=== PATIENT | female | born 1940 | race Caucasian/White ===

== ENCOUNTER 2021-03-30 08:27 | Outpatient (REF) | payer MEDICARE, SELFPAY ==
--- NOTE | ~2021-03-30 | XR_ITS ---
EXAMINATION: XR WRIST, LEFT CLINICAL INFORMATION: Pain left wrist COMPARISON: None TECHNIQUE: 4 views of the left wrist. FINDINGS: There is a small lucency seen traversing the radial styloid process suspicious for fracture. No additional bony abnormality seen. The intercarpal, radioulnar- carpal and CMCP articulation is maintained normal. No abnormal joint effusion seen. Mild soft tissue swelling is noted adjacent to the radial styloid fracture. XR/XR wrist LT min 3V IMPRESSION: Nondisplaced fracture radial styloid process with mild soft tissue swelling.
== END 2021-03-30 08:28 | disposition home or self-care (01) ==
LOC: HO.HOSX 08:27
PROVIDERS: Visit Provider Orthopaedic Surgery
DX: S52.502A Unspecified fracture of the lower end of left radius, initial encounter for closed fracture (principal); M72.0 Palmar fascial fibromatosis [Dupuytren]; X58.XXXA Exposure to other specified factors, initial encounter; Y93.9 Activity, unspecified; Y92.9 Unspecified place or not applicable; Y99.9 Unspecified external cause status
CPT/HCPCS: 73110; 99202

== ENCOUNTER 2021-05-04 08:25 | Outpatient (REF) | payer MEDICARE, SELFPAY ==
--- NOTE | ~2021-05-04 | XR_ITS ---
EXAMINATION: XR WRIST, LEFT CLINICAL INFORMATION: Pain COMPARISON: Prior study 03/30/2021 TECHNIQUE: PA, lateral, and oblique views of the left wrist. FINDINGS: Redemonstration of unhealed intra-articular transverse fracture through the radial styloid. There is underlying degenerative osteoarthritis. There are no new fractures. XR/XR wrist LT min 3V IMPRESSION: Stable unhealed intra-articular radial styloid fracture. Underlying degenerative osteoarthritis.
== END 2021-05-04 08:26 | disposition home or self-care (01) ==
LOC: HO.HOSX 08:25
PROVIDERS: Visit Provider Orthopaedic Surgery
DX: S52.502D Unspecified fracture of the lower end of left radius, subsequent encounter for closed fracture with routine healing (principal); M72.0 Palmar fascial fibromatosis [Dupuytren]
CPT/HCPCS: 73110; 99212

== ENCOUNTER 2021-10-31 14:09 | Outpatient (REF) | payer MEDICARE, SELFPAY ==
[2021-10-31 14:26] VITALS: BP 147/74; PULSE 65; RESP 16; TEMP 36.2; O2SAT 97; BMI 28.3
== END 2021-10-31 14:10 | disposition home or self-care (01) ==
LOC: HO.MS 14:09
PROVIDERS: PCP Internal Medicine; Visit Provider Ophthalmology
PROC: (CPT 66821; principal; 2021-10-31 15:40)
DX: H26.491 Other secondary cataract, right eye (principal); Z83.511 Family history of glaucoma; H40.013 Open angle with borderline findings, low risk, bilateral; Z96.1 Presence of intraocular lens; Z79.899 Other long term (current) drug therapy; Z88.8 Allergy status to other drugs, medicaments and biological substances
CPT/HCPCS: 66821

== ENCOUNTER 2025-05-05 08:47 | Outpatient (AMB) | payer MEDICARE, SELFPAY ==
--- NOTE | 2025-05-05 08:57 | A.OFFPC_ITS ---
Vital Signs 05/05/25 09:00 Height 4 ft 9.87 in Weight 141 lb 6 oz BMI 29.7 BP 132/60 Blood Pressure Location Rt brachial Position Sitting Pulse 69 Pulse Source Pulse Oximeter Temp 97.1 F Temp Source Temporal Artery Scan Pulse Oximetry (%) 98 Oxygen Delivery Method Room Air Intake Visit Reasons: Establish Care Intake Note: Patient is a new patient here to [facility] care for Arthritis, Osteoarthritis. Transferring care from Darrell Mcclain([facility]). Medical records have been requested and have not received. Edi Specialist Required: No Wrinkle Chaser: Not Required per policy Accompanied by: Self / Same As Patient Allergies meperidine (Demerol) Allergy (Unknown, Verified 05/05/25 09:00) hives From DEMEROL Allergy (Severe, Uncoded 05/05/25 09:00) SKIN FEELS LIKE SOMETHING CRAWLING ALL OVER Medication List - Last Reconciled 05/05/25 by Nusrat Alvarenga MD alendronate 70 mg PO QWEEK cholecalciferol (vitamin D3) 25 mcg PO DAILY docusate sodium (Stool Softener) 250 mg PO DAILY estradiol 0.01%(0.1mg/gram) (Estrace) 1 g vaginal 2XW flaxseed oil 2,000 mg PO DAILY multivitamin (Multiple Vitamins tablet) 1 tab PO DAILY Tobacco use date assessed: 05/05/25 Fall risk assessment: No Falls in past year Last assessed Fall Risk: 05/05/25 Dental Screening Dental Screen Date: 05/05/25 Did you have a dental visit in the last 12 months?: No Did you have a dental problem in the last 6 months where you did not have access to dental care?: No Was dental information given to patient?: No (dentures) HPI HPI Comments History of Present Illness Details The patient is an 84-year-old female presenting to [facility]. HEr main issue is knee pain and balance problems. The patient reports that her leg pain began last year, initially affecting her knees, which resolved but later progressed to balance issues and inward turning of the leg. In January, she was diagnosed with Lyme disease after blood tests and was treated with antibiotics for four weeks without improvement. She was advised to visit an arthritis clinic but has been unable to secure an appointment. The patient describes experiencing shocks in her thighs and knees, particularly in the morning, which affects her ability to walk normally. She has been using a cane for support due to off-balance walking and reports that her walking steadiness has been low since September. She has a history of Dupuytren's contracture in her hands for over ten years, which she manages without surgical intervention. The patient denies any significant pain in her hands and reports normal aches and pains associated with aging. The patient has been taking ibuprofen for pain management, which provides some relief, and she engages in home-based physical therapy exercises. She has stopped taking alendronate due to concerns about potential side effects and is awaiting further evaluation. Her preventative care includes pneumococcal vaccination, and she has received all COVID-19 vaccinations. She plans to receive the flu vaccine at [facility] and is considering the shingles vaccine. 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 1. Little interest or pleasure in doing things: not at all 2. Feeling down, depressed, or hopeless: not at all 3. Trouble falling or staying asleep, or sleeping too much: not at all 4. Feeling tired or having little energy: not at all 5. Poor appetite or overeating: not at all 6. Feeling bad about yourself - or that you are a failure or have let yourself or your family down: not at all 7. Trouble concentrating on things, such as reading the newspaper or watching television: not at all 8. Moving or speaking so slowly that other people could have noticed. Or the opposite - being so fidgety or restless that you have been moving around a lot more than usual: not at all 9. Thoughts that you would be better off or of hurting yourself in some way: not at all Total score: 0 Depression Screening Interpretation: Negative Depression Screening Done: Yes Source: Developed by Drs. Alfredo Antunez, Barbara Tomas, Be Mccord and colleagues, with an educational sarath from [employer]. Thrive Questionnaire Date Thrive assessed: 05/04/25 I am a: Patient What is your living situation today?: I have a steady place to live Within the past 12 months, did the food you bought not last and you didn't have the money to get more?: Never true Within the past 12 months, did you worry whether your food would run out before you got money to buy more?: Never true Do you have trouble paying for medicines?: No Do you have trouble getting transportation to medical appointments?: No Do you have trouble paying your heating and electricity bill?: No Do you have trouble taking care of your child, family member or friend?: No Do you have trouble with day-to-day activities such as bathing, preparing meals, shopping, managing finances, etc.?: No Are you currently unemployed and looking for a job?: No Are you interested in more education?: No Please select the resources that you would like help with: None Currently or been in a relationship where the following occur: No concerns reported THRIVE Score: 0 AUDIT C Alcohol Use Questionnaire (AUDIT-C) 1. How often do you have a drink containing alcohol?: Never 3. How often do you have six or more drinks on one occasion?: Never Total Score: 0 SOHAN-7 AMB Questionnaire SOHAN-7 Date SOHAN - 7 assessed: 05/05/25 Feeling nervous, anxious, or on edge: 0 = Not at all Not being able to stop or control worryin = Not at all Worrying too much about different things: 0 = Not at all Trouble relaxin = Not at all Being so restless that it is hard to sit still: 0 = Not at all Becoming easily annoyed or irritable: 0 = Not at all Feeling afraid as if something awful might happen: 0 = Not at all Total SOHAN-7 score (0-4 normal; 5-9 mild; 10-14 moderate; 15-21 severe): 0 Source: Developed by Drs. Alfredo Antunez, Barbara Tomas, Be Mccord and colleagues, with an educational sarath from [employer]. Review of Systems Const Details: Positives besides what was mentioned in HPI are in BOLD Constitutional: No Weight Change, No Fever, No Chills, No Night Sweats, No Fatigue, No Malaise ENT/Mouth: No Hearing Changes, No Ear Pain, No Nasal Congestion, No Sinus Pain, No Hoarseness, No sore throat, No Rhinorrhea, No Swallowing Difficulty Eyes: No Eye Pain, No Swelling, No Redness, No Foreign Body, No Discharge, No Vision Changes Cardiovascular: No Chest Pain, No SOB, No PND, No Dyspnea on Exertion, No Orthopnea, No Claudication, No Edema, No Palpitations Respiratory: No Cough, No Sputum, No Wheezing, No Smoke Exposure, No Dyspnea Gastrointestinal: No Nausea, No Vomiting, No Diarrhea, No Constipation, No Pain, No Heartburn, No Anorexia, No Dysphagia, No Hematochezia, No Melena, No Flatulence, No Jaundice Genitourinary: No Dysmenorrhea, No DUB, No Dyspareunia, No Dysuria, No Urinary Frequency, No Hematuria, No Urinary Incontinence, No Urgency, No Flank Pain, No Urinary Flow Changes, No Hesitancy Musculoskeletal: No Arthralgias, No Myalgias, No Joint Swelling, No Joint Stiffness, No Back Pain, No Neck Pain, No Injury History Skin: No Skin Lesions, No Pruritis, No Hair Changes, No Breast/Skin Changes, No Nipple Discharge Neuro: No Weakness, No Numbness, No Paresthesias, No Loss of Consciousness, No Syncope, No Dizziness, No Headache, No Coordination Changes, No Recent Falls Psych: No Anxiety/Panic, No Depression, No Insomnia, No Personality Changes, No Delusions, No Rumination, No SI/HI/AH/VH, No Social Issues, No Memory Changes, No Violence/Abuse Hx., No Eating Concerns Heme/Lymph: No Bruising, No Bleeding, No Transfusions History, No Lymphadenopathy Endocrine: No Polyuria, No Polydipsia, No Temperature Intolerance Physical exam (Primary Care) Vital Signs: Last Vital Signs Temp 97.1 F 05/05/25 09:00 Oxygen Delivery Method Room Air 05/05/25 09:00 BMI result Body Mass Index 29.7 Tobacco/Smoking Status: Tobacco use Status Tobacco use date assessed 05/05/25 05/05/25 09:06 Patient Tobacco Use Status Never used Tobacco 05/05/25 09:06 e-Cigarette/Vaping Use Never Used 05/05/25 09:06 PHQ-9: PHQ-9 Score PHQ-9: Total score 0 05/05/25 09:06 Depression Screening Interpretation: Negative Thrive Assessment: Date of Thrive Assessment Date Thrive assessed 05/04/25 05/05/25 08:57 Currently or been in a relationship where the following occur: No concerns reported Const Other: Pertinent findings are in BOLD GENERAL APPEARANCE NAD, activity normal for age, well developed/ well nourished, no cyanosis, pallor, or diaphoresis. EYES lids/conjunctiva normal. EARS/NOSE/THROAT Mucous membranes moist, nares normal, lips/teeth normal uvula midline without oral pharyngeal erythema, exudate or swelling TMs normal bilaterally. No lymphangitis/lymphedema. HEAD/NECK normocephalic atraumatic, no facial trauma, neck is supple. RESPIRATORY respiratory effort normal, speaks in full sentences, no tripod position, no accessory muscle use. Lungs clear to auscultation without rhonchi, wheezes, rales CARDIAC Regular rate and rhythm, no edema. ABDOMINAL Soft, ND/NT. No evidence of fluid wave. No pulsatile masses on exam, rebound tenderness, Johnson sign or pain over Mcburney's point. MUSCLES/EXTREMITIES Mild imbalance with walking. Mild tenderness to outer knees. Leg raise negative. SKIN Warm, pink and dry. No rashes, dermatoses, petechiae or lesions. NEUROLOGICAL Speech is clear and appropriate. Normal level of consciousness. Gait and coordination are normal. 5/5 strength in all extremities. PSYCH Normal mood and affect. Judgement/competence is appropriate Coding Level of Care Code New Pt Level 4 (92535) Diagnoses Primary osteoarthritis of both knees M17.0 Osteoarthritis location: knee Osteoarthritis type: primary Laterality: bilateral Age-related osteoporosis without current pathological fracture M81.0 Osteoporosis type: age-related Presence of current pathological fracture: without current pathological fracture Herpes zoster without complication B02.9 Herpes zoster complications: without complications Health maintenance examination Z00.00 Assessment & Plan Assessment & Plan (1) Osteoarthritis: Code(s): M19.90 - Unspecified osteoarthritis, unspecified site Category: Medical Qualifiers: Osteoarthritis location: knee Osteoarthritis type: primary Laterality: bilateral Qualified Code(s): M17.0 - Bilateral primary osteoarthritis of knee Plan: Most likely her knee pain is due to Osteoarthritis. Bilateral knee X-ray. PT referral. OTC tylenol and Ibuprofen. RF and CCP to rule out RA as she describes severe morning stiffness in her knees. (2) Osteoporosis: Code(s): M81.0 - Age-related osteoporosis without current pathological fracture Category: Medical Qualifiers: Osteoporosis type: age-related Presence of current pathological fracture: without current pathological fracture Qualified Code(s): M81.0 - Age- related osteoporosis without current pathological fracture Plan: Was previsouly on Alendronate but she self discontinued it due to concerns related to muscle wasting. Dental referral for clearance prior to re-initiation of Alendronate. Repeat Dexa ordered to evaluate for need of treatment. (3) Herpes zoster: Code(s): B02.9 - Zoster without complications Category: Medical Qualifiers: Herpes zoster complications: without complications Qualified Code(s): B02.9 - Zoster without complications Plan: Advised on getting Shingles vaccine. No acute flares at this time. She had three episodes of shingles. (4) Health maintenance examination: Code(s): Z00.00 - Encounter for general adult medical examination without abnormal findings Category: Medical Plan: Dexa. CBC, CMP, Lipid panel, A1C, TSH w T4. Advised on getting Shingles vaccine. Patient reports completing COVID and pneumococcal vaccines in the past. She will get the flu vaccine from retail pharmacy. Plan We also explored the possibility of osteoarthritis contributing to her symptoms and the potential for physical therapy and pain management strategies, including the use of Tylenol and ibuprofen. The need for further diagnostic imaging, such as knee x-rays, was highlighted to better understand the extent of joint involvement. Preventative care measures, including vaccinations, were reviewed, and the patient was encouraged to consider the shingles vaccine. Orders: Orders Lipid Panel Today Z00.00 - Encounter for general adult medical examination without abnormal findings TSH reflex Free T4 Today Z00.00 - Encounter for general adult medical examination without abnormal findings KALPESH Reflex Titer and Pattern Today Z00.00 - Encounter for general adult medical examination without abnormal findings XR Knee Richard 3V Today M19.90 - Unspecified osteoarthritis, unspecified site XR DEXA axial skeleton Today M81.0 - Age-related osteoporosis without current pathological fracture Complete Blood Count no Diff Today Z00.00 - Encounter for general adult medical examination without abnormal findings Complete Blood Count Auto Diff Today Z00.00 - Encounter for general adult medical examination without abnormal findings Hemoglobin A1c Today Z00.00 - Encounter for general adult medical examination without abnormal findings Cyclic Citrullinated Peptide Today M19.90 - Unspecified osteoarthritis, unspecified site Rheumatoid Factor Today M19.90 - Unspecified osteoarthritis, unspecified site PT Evaluation and Treatment Today M19.90 - Unspecified osteoarthritis, unspecified site Referrals Dentistry Referral M81.0 - Age-related osteoporosis without current pathological fracture
[2025-05-05 09:00] VITALS: BP 132/60; PULSE 69; TEMP 36.2; O2SAT 98; BMI 29.7
--- OUTSIDE RECORDS SUMMARY | 2025-05-05 10:46 | XMS_ITS | Patient Health Record ---
Author Organization [facility] Address [address] [place] [address] Care Team Providers Care Animal Breeder Name Role Phone Darrell Mcclain MD Primary Care Provider Sukhjinder Rock Jr Unavailable Allergies Allergen (clinical drug ingredient) Drug/Non Drug Allergy documented on EMR Reaction Allergy Type Onset Date Status meperidine Demerol Unknown Drug Allergy Active Reason For Referral No Information Medications Medication SIG (Take, Route, Frequency, Duration) Notes Start Date End Date Status Alendronate Sodium 70 MG Oral for 84 Active Estradiol Active Calcium Magnesium Ac tive Multivitamin Adult - 1 tablet Orally Onc e a day for 30 day(s) Active Flaxseed Oil - as directed Act lindsay Vitamin D3 25 MCG (1000 UT) 1 tablet Ora lly Once a day for 30 day(s) Active Stool Softener 250 MG 1 capsule as neede d Orally Once a day Active Colostrum Active Social History Tobacco Use: Social History Observation Description Date Details (start date - stop date) Former Smoker NA - NA Tobacco Use/Smoking Question Answer Notes Patient is a former smoker How long has it been since you last smoked? > 10 years Alcohol Screen Question Answer Notes Did you have a drink contain ing alcohol in the past year? Yes How often did you have a dri nk containing alcohol in the past year? Never (0 point) How many drinks did you have on a typical day when you were drinking in the past year? 1 or 2 drinks (0 point) How often did you have 6 or more drinks on one occasion in the past year? Never (0 point) Points 0 Interpretation Negative Plan Of Treatment No Information Insurance Providers Payer Name Payer Address Payer Phone Subscriber Number Group Number Insured Name Patient Relationship to Insured Coverage Start Date Coverage End Date [facility] CLAIMS [address] [place] [id number] ANDRE FOSS Self - patient is the insured [facility] [address] [place] [address] [phone] [id number] ANDRE FOSS Self - patient is the insured Medical (General) History Medical History History ICD Code Allergic rhinitis Osteoporosis Uterine prolapse Surgical History Surgery Date(Month/Year) D&C
--- OUTSIDE RECORDS SUMMARY | 2025-05-05 10:46 | XMS_ITS | Clinical Summary ---
Author Organization [employer] Address [address] [place] [address] Care Team Providers Care Bag Patcher Name Role Phone Unavailable Primary Care Provider Unavailabl e Immunizations Immunization Administration Dates Next Due Influenza High-dose Quadriva lent Preservative Free 06/05/2022 Influenza Quadrivalent Adjuvanted 06/09/2023,12/2020 Influenza Whole 05/12/2020, 9,04/16/2012,05/11,05/17/2009,06/17/2008 Influenza, IIV3, injectable 06/09/2023,1 ,05/24/2021,06/10,06/04/2017,06/02/2016,05/21/2015 ,05/06/2014,05/12/2013,05/09/2013,03/21,05/10/2011,04/28/2010, 0 Influenza, seasonal, injecta ble, preservative free 05/12/2024 Pfizer Covid-19 Vaccine 12+ 05/12/2024, 3 Pneumococcal Conjugate PCV 13 05/21/2015 Pneumococcal Polysaccharide PPSV23 06/16/2020, RSV Adjuvant 07/17/2023 Td (adult), unspecified 02/03/2000 Tdap 06/16/2020 Tetanus Toxoid, Unspecified 03/07/2010 Social History Tobacco Use Types Packs/Day Years Used Date Smoking Tobacco: Never Assessed Comments Unknown Sex and Gender Information Value Date Recorded Sex Assigned at Unknown 06/21/2023 3:50 PM EDT Legal Sex Female 12:05 PM EDT Gender Identity Choose not to disclose 3:50 PM EDT Sexual Orientation Don't know 06/21/2023 3: 50 PM EDT Plan of Treatment Health Maintenance Due Date Last Done Comments Depression Screening 1942 Lipid Panel 1942 SDOH Screening 1942 Alcohol/Substance Use Screening 1954 Tobacco Screening 1954 Zoster Vaccines (1 of 2) 1992 COVID-19 Vaccine ( season) 2025 05/12/2024, 06/21/2023, 05/07/2022, Additional history exists Influenza Vaccine (#1) 2025 , 06/09/2023, 06/09/2023, Additional history exists DTaP/Tdap/Td Vaccines (2 - Td or Tdap) 06/16/2030 06/16/2020, 03/07/2010, 02/03/2000 Pneumococcal Vaccine: 50+ Years Completed 06/16/2020, 05/21/2015, 01/23/2007 RSV Patients and Patients Aged 60 years or older Completed 07/17/2023 HIB Vaccines Aged Out No longer eligi ble based on patient's age to complete this topic HPV Vaccines Aged Out No longer eligi ble based on patient's age to complete this topic Hepatitis A Vaccines Aged Out No long er eligible based on patient's age to complete this topic Hepatitis B Vaccines Aged Out No long er eligible based on patient's age to complete this topic IPV Vaccines Aged Out No longer eligi ble based on patient's age to complete this topic Meningococcal B Vaccine Aged Out No l onger eligible based on patient's age to complete this topic Meningococcal Vaccine Aged Out No anne marie linda eligible based on patient's age to complete this topic RSV under 20 months Aged Out No longe r eligible based on patient's age to complete this topic Rotavirus Vaccines Aged Out No longer eligible based on patient's age to complete this topic Insurance [facility] OPTIONS (HMO D-SNP)
== END 2025-05-05 09:44 | disposition home or self-care (01) ==
LOC: HO.HMCH 08:48
PROVIDERS: PCP Internal Medicine; Visit Provider Internal Medicine
DX: M17.0 Bilateral primary osteoarthritis of knee (principal); M81.0 Age-related osteoporosis without current pathological fracture; B02.9 Zoster without complications; Z00.00 Encounter for general adult medical examination without abnormal findings

== ENCOUNTER 2025-05-11 09:49 | Outpatient (REF) | payer MEDICARE, SELFPAY ==
--- NOTE | ~2025-05-11 | XR_ITS ---
Exam: X-ray, bilateral knees.XR KNEE 3 VIEWS BILATERAL TECHNIQUE: Three views lower extremity joint, bilateral knees INDICATION: Arthritis COMPARISON: None available. FINDINGS: RIGHT KNEE: There is mild narrowing of the medial joint space. Lateral joint spaces preserved. There is a small amount of fluid in the suprapatellar pouch. There are tricompartmental marginal osteophytes. There is mild medial subluxation of distal femur at the joint line. LEFT KNEE: There is mild narrowing of the medial joint space and questionable narrowing of the lateral. There is no free fluid is visible in suprapatellar pouch. There are tricompartmental marginal osteophytes and peaked intercondylar tubercles. There is subtle medial subluxation of distal femur at the joint line. XR/XR Knee Richard 3V IMPRESSION: Right knee: Mild to moderate osteoarthritis. There is a small volume of joint fluid. Left knee: Mild to moderate osteoarthritis. There is a small volume of joint fluid. Electronically signed by: Dane Mg MD 05/11/2025 10:31 AM EDT
--- OUTSIDE RECORDS SUMMARY | 2025-05-11 11:59 | XMS_ITS | Patient Health Record ---
Author Organization [facility] Address [address] [place] [address] Care Team Providers Care Bodywork Therapist Name Role Phone Darrell Mcclain MD Primary [...] Insured Coverage Start Date Coverage End Date [facility] CLAIMS [address] [place] [id number] ANDRE FOSS Self - patient is the insured [facility] [address] [place] [address] [phone] [id number] ANDRE FOSS Self - patient is the insured Medical (General) History Medical History History ICD Code Allergic rhinitis Osteoporosis Uterine prolapse Surgical History Surgery Date(Month/Year) D&C
--- OUTSIDE RECORDS SUMMARY | 2025-05-11 11:59 | XMS_ITS | Clinical Summary ---
Author Organization [employer] Address [address] [place] [address] Care Team Providers Care Software Application Tester Name Role Phone Unavailable Primary Care Provider [...] patient's age to complete this topic Insurance [facility] OPTIONS (HMO D-SNP)
[2025-05-11 12:58] LABS: MANUAL DIFF FLAG NO
[2025-05-11 13:13] LABS: Hematocrit 39.4 % (37.0-47.0); Hemoglobin 13.1 g/dl (12.0-16.0); Imm Gran Abs Auto 0.04 X10*3/uL (0.00-0.03); Imm Gran Pct Auto 0.4 % (0.0-0.4); Lymphocytes Absolute Auto 2.3 X10*3/uL (1.2-4.9); Mean Corpuscular HGB Conc 33.2 g/dl (31.0-35.0); Mean Corpuscular Hemoglobin 30.8 pg (27.0-33.0); Mean Corpuscular Volume 92.5 fL (80.0-98.0); NRBC Abs Auto 0.000 X10*3/uL (0.0-0.012); NRBC Pct Auto 0.0 /100WBC (0.0-0.2); Platelet Count 318 X10*3/uL (160-400); Red Blood Count 4.26 X10*6/uL (4.20-5.50); White Blood Count 9.1 X10*3/uL (4.8-10.8)
[2025-05-11 13:24] LABS: Hemoglobin A1C 126.9926 umol/L; Total Hemoglobin (HGBA1C) 3443.4732 umol/L
[2025-05-11 13:47] LABS: Cholesterol 177 mg/dL (<200); HDL Cholesterol 42 mg/dL (>40); Triglycerides 141 mg/dL (<150)
[2025-05-12 15:37] LABS: Anti Nuclear Antibody Screen NEGATIVE (NEGATIVE)
== END 2025-05-11 09:50 | disposition home or self-care (01) ==
LOC: HO.HMGCX 09:49
PROVIDERS: PCP Internal Medicine; Visit Provider Internal Medicine
DX: Z00.00 Encounter for general adult medical examination without abnormal findings (principal); Z13.6 Encounter for screening for cardiovascular disorders; Z13.1 Encounter for screening for diabetes mellitus; M17.0 Bilateral primary osteoarthritis of knee
CPT/HCPCS: 36415; 73562; 80061; 83036; 84443; 85025; 86038; 86200; 86431

== ENCOUNTER → 2025-05-11 09:56 | Outpatient (BNV) | payer MEDICARE, SELFPAY | PROVIDERS: PCP Internal Medicine; Visit Provider Radiology Diagnostic Radiology | DX: M17.0 Bilateral primary osteoarthritis of knee (principal) | CPT/HCPCS: 73562 ==

== ENCOUNTER 2025-05-25 13:47 | Outpatient (AMB) | payer MEDICARE, SELFPAY ==
--- NOTE | 2025-05-25 14:00 | MHC.PC.OV ---
Vital Signs 05/25/25 14:01 Height 4 ft 9.87 in Weight 141 lb BMI 29.6 BP 142/82 H Blood Pressure Location Lt brachial Position Sitting Pulse 64 Pulse Source Pulse Oximeter Temp 97.3 F Temp Source Temporal Artery Scan Pulse Oximetry (%) 98 Oxygen Delivery Method Room Air Intake Visit Reasons: hard time walking Intake Note: Patient is here to follow up on Hard time walking and off balance. Burner Technician Required: No Ui Software Developer: Present Accompanied by: Daughter Allergies meperidine (Demerol) Allergy (Unknown, Verified 05/25/25 14:01) hives From DEMEROL Allergy (Severe, Uncoded 05/25/25 14:01) SKIN FEELS LIKE SOMETHING CRAWLING ALL OVER Tobacco use date assessed: 05/25/25 Fall risk assessment: No Falls in past year Last assessed Fall Risk: 05/25/25 Dental Screening Dental Screen Date: 05/05/25 HPI HPI Comments History of Present Illness Details The patient is an 84-year-old female presenting with severe muscle pain in the thighs and walking instability. The pain is most severe in the morning, making ambulation difficult, and is described as a bruised sensation inside the thighs, accompanied by a dragging feeling when walking. The patient has a history of osteoarthritis, which she believes may contribute to her symptoms, although the thigh pain is distinct from her arthritis pain. She also has a history of Lyme disease, though the timing of contraction is unclear, and she questions its relation to her current symptoms. Walking instability has been present since September 2023, with a noted decline in steadiness, described as jumping soldier gait, and rated as very low. Imaging revealed fluid in both knees, but the knees are not the primary source of pain. The patient is not on regular medications, including alendronate, and uses Tylenol for pain relief. Recent labs showed a slight elevation in immature granulocytes, leading to a hematology referral. 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 Cognitive needs: Yes (cane) Hearing needs: No Vision needs: Yes (Reading glasses) Questionnaire Thrive Questionnaire Date Thrive assessed: 05/04/25 I am a: Patient What is your living situation today?: I have a steady place to live Within the past 12 months, did the food you bought not last and you didn't have the money to get more?: Never true Within the past 12 months, did you worry whether your food would run out before you got money to buy more?: Never true Do you have trouble paying for medicines?: No Do you have trouble getting transportation to medical appointments?: No Do you have trouble paying your heating and electricity bill?: No Do you have trouble taking care of your child, family member or friend?: No Do you have trouble with day-to-day activities such as bathing, preparing meals, shopping, managing finances, etc.?: No Are you currently unemployed and looking for a job?: No Are you interested in more education?: No Please select the resources that you would like help with: None Currently or been in a relationship where the following occur: No concerns reported THRIVE Score: 0 SOHAN-7 AMB Questionnaire SOHAN-7 Date SOHAN - 7 assessed: 05/05/25 Source: Developed by Drs. Alfredo Antunez, Barbara Tomas, Be Mccord and colleagues, with an educational sarath from [employer] Review of Systems Const Details: Positives besides what was mentioned in HPI are in BOLD Constitutional: No Weight Change, No Fever, No Chills, No Night Sweats, No Fatigue, No Malaise ENT/Mouth: No Hearing Changes, No Ear Pain, No Nasal Congestion, No Sinus Pain, No Hoarseness, No sore throat, No Rhinorrhea, No Swallowing Difficulty Eyes: No Eye Pain, No Swelling, No Redness, No Foreign Body, No Discharge, No Vision Changes Cardiovascular: No Chest Pain, No SOB, No PND, No Dyspnea on Exertion, No Orthopnea, No Claudication, No Edema, No Palpitations Respiratory: No Cough, No Sputum, No Wheezing, No Smoke Exposure, No Dyspnea Gastrointestinal: No Nausea, No Vomiting, No Diarrhea, No Constipation, No Pain, No Heartburn, No Anorexia, No Dysphagia, No Hematochezia, No Melena, No Flatulence, No Jaundice Genitourinary: No Dysmenorrhea, No DUB, No Dyspareunia, No Dysuria, No Urinary Frequency, No Hematuria, No Urinary Incontinence, No Urgency, No Flank Pain, No Urinary Flow Changes, No Hesitancy Musculoskeletal: No Arthralgias, No Myalgias, No Joint Swelling, No Joint Stiffness, No Back Pain, No Neck Pain, No Injury History Skin: No Skin Lesions, No Pruritis, No Hair Changes, No Breast/Skin Changes, No Nipple Discharge Neuro: No Weakness, No Numbness, No Paresthesias, No Loss of Consciousness, No Syncope, No Dizziness, No Headache, No Coordination Changes, No Recent Falls Psych: No Anxiety/Panic, No Depression, No Insomnia, No Personality Changes, No Delusions, No Rumination, No SI/HI/AH/VH, No Social Issues, No Memory Changes, No Violence/Abuse Hx., No Eating Concerns Heme/Lymph: No Bruising, No Bleeding, No Transfusions History, No Lymphadenopathy Endocrine: No Polyuria, No Polydipsia, No Temperature Intolerance Physical exam (Primary Care) Vital Signs: Last Vital Signs Temp 97.3 F 05/25/25 14:01 Pulse 64 05/25/25 14:01 BP 142/82 H 05/25/25 14:01 Pulse Ox 98 05/25/25 14:01 Oxygen Delivery Method Room Air 05/25/25 14:01 BMI result Body Mass Index 29.6 Tobacco/Smoking Status: Tobacco use Status Tobacco use date assessed 05/25/25 05/25/25 14:06 Patient Tobacco Use Status Former Tobacco user 05/25/25 14:06 e-Cigarette/Vaping Use Never Used 05/25/25 14:06 Thrive Assessment: Date of Thrive Assessment Date Thrive assessed 05/04/25 05/25/25 14:06 Currently or been in a relationship where the following occur: No concerns reported Const Other: Pertinent findings are in BOLD GENERAL APPEARANCE NAD, activity normal for age, well developed/ well nourished, no cyanosis, pallor, or diaphoresis. EYES lids/conjunctiva normal. EARS/NOSE/THROAT Mucous membranes moist, nares normal, lips/teeth normal uvula midline without oral pharyngeal erythema, exudate or swelling TMs normal bilaterally. No lymphangitis/lymphedema. HEAD/NECK normocephalic atraumatic, no facial trauma, neck is supple. RESPIRATORY respiratory effort normal, speaks in full sentences, no tripod position, no accessory muscle use. Lungs clear to auscultation without rhonchi, wheezes, rales CARDIAC Regular rate and rhythm, no edema. ABDOMINAL Soft, ND/NT. No evidence of fluid wave. No pulsatile masses on exam, rebound tenderness, Johnson sign or pain over Mcburney's point. MUSCLES/EXTREMITIES No abnormal range of motion, no swelling. Patient limping when walking. Weakness in bilateral lower extremities. SKIN Warm, pink and dry. No rashes, dermatoses, petechiae or lesions. NEUROLOGICAL Speech is clear and appropriate. Normal level of consciousness. Gait and coordination are normal. 5/5 strength in all extremities. PSYCH Normal mood and affect. Judgement/competence is appropriate Coding Level of Care Code Est Pt Level 3 (44974) Diagnoses Muscle weakness M62.81 Time Spent (min) 20 Assessment & Plan Assessment & Plan (1) Muscle weakness: Code(s): M62.81 - Muscle weakness (generalized) Category: Medical Plan: Rheumatology referral to assist with management of thighs weakness. PT referral. ESR, CRP, anti NADIA, and anti scleroderma to rule out autoimmune diseases. Plan During the visit, I discussed the patient's symptoms of muscle pain and walking instability, emphasizing the need for further evaluation by rheumatology and dermatology. We also reviewed the lab findings of elevated immature granulocytes and the plan to consult hematology for further assessment. Physical therapy was recommended to improve muscle strength and gait stability. Orders: Orders Erythrocyte Sedimentation Rate Today M62.81 - Muscle weakness (generalized) CRP High Sensitivity Today M62.81 - Muscle weakness (generalized) NADIA 1 Antibody Today M62.81 - Muscle weakness (generalized) Scleroderma 70 Antibody Today M62.81 - Muscle weakness (generalized) Referrals Rheumatology Referral M79.659 - Pain in unspecified thigh
[2025-05-25 14:01] VITALS: BP 142/82; PULSE 64; TEMP 36.3; O2SAT 98; BMI 29.6
--- OUTSIDE RECORDS SUMMARY | 2025-05-25 16:13 | XMS_ITS | Patient Health Record ---
Author Organization [facility] Address [address] [place] [address] Care Team Providers Care Digital Designer Name Role Phone Darrell Mcclain MD Primary [...] Insured Coverage Start Date Coverage End Date [facility] CLAIMS [address] [place] [id number] ANDRE FOSS Self - patient is the insured [facility] [address] [place] [address] [phone] [id number] ANDRE FOSS Self - patient is the insured Medical (General) History Medical History History ICD Code Allergic rhinitis Osteoporosis Uterine prolapse Surgical History Surgery Date(Month/Year) D&C
--- OUTSIDE RECORDS SUMMARY | 2025-05-25 16:13 | XMS_ITS | Clinical Summary ---
Author Organization [employer] Address [address] [facility] [address] [place] [address] Care Team Providers Care Buckle Sewer Machine Name Role Phone Unavailable Primary Care Provider [...] patient's age to complete this topic Insurance [facility] OPTIONS (HMO D-SNP)
== END 2025-05-25 14:22 | disposition home or self-care (01) ==
LOC: HO.HMCH 13:48
PROVIDERS: PCP Internal Medicine; Visit Provider Internal Medicine
DX: M62.81 Muscle weakness (generalized) (principal)

== ENCOUNTER → 2025-05-25 13:47 | Outpatient (BNVA) | payer MEDICARE, SELFPAY | PROVIDERS: PCP Internal Medicine; Visit Provider Internal Medicine | DX: M62.81 Muscle weakness (generalized) (principal); R26.89 Other abnormalities of gait and mobility | CPT/HCPCS: 99212 ==

== ENCOUNTER 2025-05-29 14:36 | Outpatient (REF) | payer MEDICARE, SELFPAY ==
[2025-06-05 19:47] LABS: Cytosolic 5'nuc 1A Ab IgG <5 Units; HMGCR Ab IgG <2 CU (<20); MDA5 Ab <11 SI (<11); NXP-2 (MJ) Ab <11 SI (<11); SRP Ab <11 SI (<11)
[2025-06-11 07:55] LABS: CK-BB NONE DETECTED; CK-MB 0; CK-MM 100
[2025-06-11 07:57] LABS: Creatine Kinase,Total,Serum 51
== END 2025-05-29 14:37 | disposition home or self-care (01) ==
LOC: HO.HMGCLDS 14:36
PROVIDERS: PCP Internal Medicine; Visit Provider Internal Medicine
DX: M62.81 Muscle weakness (generalized) (principal)
CPT/HCPCS: 36415; 82085; 82552; 83516; 83520; 84182; 85652; 86141; 86235

== ENCOUNTER 2025-06-15 16:03 | Outpatient (REF) | payer MEDICARE, SELFPAY ==
[2025-06-15 17:23] LABS: Hematocrit 41.1 % (37.0-47.0); Hemoglobin 13.5 g/dl (12.0-16.0); Mean Corpuscular HGB Conc 32.8 g/dl (31.0-35.0); Mean Corpuscular Hemoglobin 30.5 pg (27.0-33.0); Mean Corpuscular Volume 93.0 fL (80.0-98.0); NRBC Abs Auto 0.000 X10*3/uL (0.0-0.012); NRBC Pct Auto 0.0 /100WBC (0.0-0.2); Platelet Count 315 X10*3/uL (160-400); Red Blood Count 4.42 X10*6/uL (4.20-5.50); White Blood Count 9.3 X10*3/uL (4.8-10.8)
--- OUTSIDE RECORDS SUMMARY | 2025-06-15 18:59 | XMS_ITS | Patient Health Record ---
Author Organization [facility] Address [address] [place] [address] Care Team Providers Care Printing Machinist Name Role Phone Darrell Mcclain MD Primary Care Provider Lisa Obando Jr Sukhjinder Unavailable Allergies Allergen (clinical drug ingredient) Drug/Non Drug Allergy documented on EMR Reaction Allergy Type Onset Date Status meperidine Demerol Unknown Drug Allergy Active Reason For Referral No Information Medications Medication SIG (Take, Route, Frequency, Duration) Notes Start Date End Date Status Alendronate Sodium 70 MG Oral; Duration: 84 Active Estradiol Active Calcium Magnesium Ac tive Multivitamin Adult - 1 tablet Orally Onc e a day; Duration: 30 day(s) Active Flaxseed Oil - as directed Act lindsay Vitamin D3 25 MCG (1000 UT) 1 tablet Ora lly Once a day; Duration: 30 day(s) Active Stool Softener 250 MG [...] Insured Coverage Start Date Coverage End Date [facility] CLAIMS [address] [place] [address] [phone] [id number] ANDRE FOSS Self - patient is the insured [facility] [address] [place] [address] [phone] [id number] ANDRE FOSS Self - patient is the insured Medical (General) History Medical History History ICD Code Allergic rhinitis Osteoporosis Uterine prolapse Surgical History Surgery Date(Month/Year) D&C
--- OUTSIDE RECORDS SUMMARY | 2025-06-15 18:59 | XMS_ITS | Clinical Summary ---
Author Organization [employer] Address [address] [facility] 7t [place] [address] Care Team Providers Care Panel Raiser Operator Name Role Phone Unavailable Primary Care Provider [...] patient's age to complete this topic Insurance [facility] LONGTERM OPTIONS (HMO D-SNP)
== END 2025-06-15 16:04 | disposition home or self-care (01) ==
LOC: HO.LAB 16:03
PROVIDERS: PCP Internal Medicine; Visit Provider Internal Medicine
DX: Z00.00 Encounter for general adult medical examination without abnormal findings (principal); M62.81 Muscle weakness (generalized)
CPT/HCPCS: 36415; 82085; 85027

== ENCOUNTER 2025-06-17 15:00 | Outpatient (RCR) | payer MEDICARE, SELFPAY ==
--- NOTE | 2025-06-15 16:01 | MHC.PT.EP ---
[facility] Office [place] Office [place] Office [address] Divya Blackmon [address] [phone] F: [phone] F: [phone] F: [phone] F: [phone] Physical Therapy Plan of Care Date of Evaluation: 06/15/25 Date of Surgery: N/A Diagnosis: osteoarthritis; bilateral knee osteoarthritis (RL) Assessment: pt is an 84 y/o female presenting to physical therapy w/ referring diagnosis of osteoarthritis bilateral knees. Impairments include pain, decreased range of motion, decreased strength, impaired functional mobility, impaired postural awareness, and altered ambulation mechanics. pt is a fair candidate for skilled PT due to age, potential remediation of impairments, typical disease/condition progression and prognosis, comorbidities, and motivation. pt would benefit from skilled PT intervention to provide a tailored strengthening and stretching exercise program, functional training, gait training, postural re-training, neuromuscular re-education, modalities as needed for pain, equipment safety demonstration. Frequency and Duration: The patient will be seen 2x/wk for 5 wks Short Term Goals: pt will be I w/ HEP to promote self-management of condition. pt will improve L hip flexion and knee extension strength by 1 MMT grade to promote ease in sit<>stand transfer. Group Home Goals: pt will report a statistically significant improvement in self-reported outcome measure, LEFI, to promote return to PLOF. pt will ascend/descend 4 stairs using railing and step-to pattern to promote ease in stairs. Treatment Plan: Modalities to reduce pain, spasms and effusion. Manual therapy to restore motion and function. Therapeutic exercise to improve strength and flexibility. Neuromuscular re-education for posture and balance. Therapeutic activities to return to functional activities of daily living. Electronically signed by: Mary Keyes PT, DPT Please sign and return to therapist. Thank you for your referral.
--- NOTE | 2025-07-01 15:41 | MHC.PT.DC ---
[facility] [place] Office [place] Office [place] Office [address] Divya Blackmon [address] [facility] [phone] F: [phone] F: [phone] F: [phone] F: [phone] Physical Therapy Discharge Report Diagnosis: osteoarthritis; bilateral knee osteoarthritis (RL) Date of Surgery: N/A Date of Evaluation: 06/15/25 Date of Discharge: 07/01/25 Treatments to Date: 2 Cancellations to Date: 8 No Shows to Date: 0 Discharge Status: Patient Elected to Stop Recommend MD Follow-up Discharge Summary: The patient called to discharge herself from physical therapy as she is pursuing an MRI. Electronically signed by: Mary Keyes PT, DPT Please sign and return to therapist. Thank you for your referral.
== END 2025-07-01 15:41 | disposition home or self-care (01) ==
LOC: HO.PT 15:00
PROVIDERS: PCP Internal Medicine; Visit Provider Internal Medicine
DX: M17.0 Bilateral primary osteoarthritis of knee (principal)
CPT/HCPCS: 97110; 97162

== ENCOUNTER 2025-06-24 07:53 | Outpatient (AMB) | payer MEDICARE, SELFPAY ==
--- OUTSIDE RECORDS SUMMARY | 2025-06-24 07:56 | XMS_ITS | Patient Health Record ---
Author Organization [facility] Address [address] [place] [address] Care Team Providers Care National Park Ranger Name Role Phone Darrell Mcclain MD Primary Care Provider Lisa Obando Jr Sukhjinder Unavailable [phone] Allergies Allergen (clinical drug ingredient) Drug/Non Drug [...] Insured Coverage Start Date Coverage End Date [facility] CLAIMS [address] [place] [phone] [id number] ANDRE FOSS Self - patient is the insured [facility] [address] [place] [address] [phone] [id number] ANDRE FOSS Self - patient is the insured Medical (General) History Medical History History ICD Code Allergic rhinitis Osteoporosis Uterine prolapse Surgical History Surgery Date(Month/Year) D&C
--- OUTSIDE RECORDS SUMMARY | 2025-06-24 07:56 | XMS_ITS | Clinical Summary ---
Author Organization [facility] [employer] Address [address] [facility] [address] [place] [address] Care Team Providers Care Employee Training Specialist Name Role Phone Unavailable Primary Care Provider [...] patient's age to complete this topic Insurance [facility]FW[facility] OPTIONS (HMO D-SNP)
--- NOTE | 2025-06-24 08:09 | A.OFFVIS_ITS ---
Intake Visit Reasons: Weakness Allergies meperidine (Demerol) Allergy (Unknown, Verified 05/25/25 14:01) hives From DEMEROL Allergy (Severe, Uncoded 05/25/25 14:01) SKIN FEELS LIKE SOMETHING CRAWLING ALL OVER Medication List - Last Reconciled 06/24/25 by Mel Leal, [facility] acetaminophen (Tylenol Extra Strength) 500 mg PO Q6H PRN cholecalciferol (vitamin D3) 25 mcg PO DAILY docusate sodium (Stool Softener) 250 mg PO DAILY estradiol 0.01%(0.1mg/gram) (Estrace) 1 g vaginal 2XW flaxseed oil 2,000 mg PO DAILY multivitamin (Multiple Vitamins tablet) 1 tab PO DAILY HPI Comments Details: Karuna is an 84-year-old female patient with a past medical history of ost eoarthritis and osteoporosis here today for an evaluation of gait instability and severe lower extremity muscle pain. Upon review of her chart and primary care office notes, she has had x-ray imaging of both of her knees in April of 2025. This showed bilateral mild to moderate osteoarthritis. She had labs including a rheumatoid factor and KALPESH both of which were negative in April of 2025. She also had labs on 05/29/2025 which included an ESR, CK both of which were normal but a CRP level was elevated at 7. Karuna tells me today, starting in September of 2023 her apple watch was noticing some changes in her steadiness. In January of 2025 her right leg was starting to turn inward. She had labs completed and bloodwork was obtained. She was positive for Lyme and was treated for this with Doxy. Since then she has had a steady decline in her steadiness and development of pain to her thighs. She now has little to no pain to the right lower extremity though she has pain to the thigh in the left side. She does feel that the right leg however is weak and is finding it hard to lift when going up and down stairs. She also feels that her legs are generally very stiff. She is living independently though has support from her family. She performs ADLs and most housework independently and uses a walker in her home for assistance. Prior workup: 05/11/2025: Bilateral knee [id number] for bilateral mild to moderate osteoarthritis 05/11/2025: Rheumatoid factor and KALPESH both within normal limits 05/29/2025: ESR and CK within normal limits. 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 Cognitive needs: Yes (cane) Hearing needs: No Vision needs: Yes (Reading glasses) Review of Systems Const All systems reviewed & are unremarkable except as noted in HPI and below Physical Exam Const General: cooperative, healthy appearing, comfortable and no acute distress Nutritional Appearance: well nourished Orientation/consciousness: patient oriented x3 Limitations: no limitations HEENT Head: Yes normal to inspection and Yes normocephalic Eyes General: appearance normal, both eyes and all related structures Visual Echeverria: normal visual echeverria by confrontation Alignment and Position: alignment normal Periorbital: periorbital findings normal Eyelids: Yes eyelids normal Conjunctivae: conjunctivae normal Sclerae: sclerae normal Neuro General: patient oriented x3, tone normal and deep tendon reflexes 2+ bilaterally Cranial nerves: Yes CN's II-XII intact bilaterally and Yes Facial sensation intact/muscles of mastication intact Cognition (Neuro): normal cognition Motor exam (neuro): no tremor noted and Abnormal motor strength present (LLE hip and knee 4/5) Sensory Exam: double simultaneous stimulation for sensation normal Romberg Test: Negative Pupils: Normal pupillary reactivity/response: bilateral Psych Appearance: grossly normal Mental Status: mental status grossly normal Speech and movement: Normal speech and movement present and Clear speech present Affect: normal affect Attitude: cooperative Thought process: Normal thought process present Thought content: Normal thought content present Insight: Good insight present (Psych) Judgement: Good judgement present (Psych) Assessment & Plan Assessment & Plan (1) Osteoporosis: Code(s): M81.0 - Age-related osteoporosis without current pathological fracture Category: Medical Qualifiers: Osteoporosis type: age-related Presence of current pathological fracture: without current pathological fracture Qualified Code(s): M81.0 - Age- related osteoporosis without current pathological fracture Plan: . (2) Thigh pain: Code(s): M79.659 - Pain in unspecified thigh Category: Medical Plan: . (3) Lower extremity weakness: Code(s): R29.898 - Other symptoms and signs involving the musculoskeletal system Category: Medical Plan: . (4) Left leg pain: Code(s): M79.605 - Pain in left leg Category: Medical Plan: . Plan Karuna is an 84-year-old female patient with a past medical history of osteoarthritis and osteoporosis here today for an evaluation of gait instability and severe lower extremity muscle pain. Leading up to her gait instability she had developed a turning in of her right lower extremity for which she had a workup done including a Lyme study which was positive. She was treated for Lyme and inflammatory markers were normal at that time. Over the course of the last few months, her gait instability has worsened and she has developed pain, stiffness, and weakness to her lower extremities which is now worse on the right side. Her pain, stiffness, and weakness are profoundly worse while standing. She has some relief while in a seated or lying position. Her pain is predominantly left thigh felt as a cramping or bruising sensation. Reflexes are normal and sensation to the distal lower extremities is preserved. My greatest suspicion is a lumbar stenosis causing symptoms of neurogenic claudication. We will 1st perform a lumbar spine MRI without contrast. If this is unrevealing, could consider an EMG study of the left lower extremity. CK level was normal making a myopathy less likely. Of note, her mother did have a history of Paget's disease. -lumbar spine MRI -could consider an EMG if lumbar spine imaging is normal -follow up in 6 weeks or sooner if needed Orders: Orders MR lumbar spine wo con Today M79.605 - Pain in left leg, M79.659 - Pain in unspecified thigh, M81.0 - Age-related osteoporosis without current pathological fracture, R29.898 - Other symptoms and signs involving the musculoskeletal system Coding Level of Care Code New Pt Level 4 (02518) Diagnoses Age-related osteoporosis without current pathological fracture M81.0 Osteoporosis type: age-related Presence of current pathological fracture: without current pathological fracture Thigh pain M79.659 Lower extremity weakness R29.898 Left leg pain M79.60
== END 2025-06-24 08:48 | disposition home or self-care (01) ==
PROVIDERS: PCP Internal Medicine; Visit Provider Nurse Practitioner
DX: M81.0 Age-related osteoporosis without current pathological fracture (principal); M79.659 Pain in unspecified thigh; R29.898 Other symptoms and signs involving the musculoskeletal system; M79.605 Pain in left leg
CPT/HCPCS: 99204

== ENCOUNTER → 2025-06-24 07:53 | Outpatient (BNVA) | payer MEDICARE, SELFPAY | PROVIDERS: PCP Internal Medicine; Visit Provider Nurse Practitioner | DX: M81.0 Age-related osteoporosis without current pathological fracture (principal); M79.605 Pain in left leg; M79.652 Pain in left thigh; R29.898 Other symptoms and signs involving the musculoskeletal system | CPT/HCPCS: 99202 ==

== ENCOUNTER 2025-07-09 11:24 | Inpatient (IN) | payer MEDICARE, SELFPAY ==
--- NOTE | ~2025-07-09 | XR_ITS ---
EXAMINATION: XR PELVIS CLINICAL INFORMATION: ?fracture COMPARISON: None available. TECHNIQUE: AP view of the pelvis. FINDINGS: Study is extremely limited due to technique, rotation, and incomplete coverage of the pelvis. No gross pelvic or hip fracture is identified. There is a displaced proximal diaphyseal transverse fracture of the left femur. Refer to the dedicated left femur radiographs. XR/XR pelvis 1-2V IMPRESSION: Extremely limited exam. No definite pelvic or hip fracture. Electronically signed by: Fernando Hutson MD 07/09/2025 12:07 PM [facility]
--- NOTE | ~2025-07-09 | XR_ITS ---
EXAMINATION: XR FEMUR, LEFT CLINICAL INFORMATION: fracture, in traction COMPARISON: None available. TECHNIQUE: AP and lateral views of the left femur were obtained. FINDINGS: There is a fracture through the left femoral diaphysis at the junction of the middle third and the proximal third portion of the femur. There is full shaft width medial displacement of the femur distal to the fracture. On the lateral, there is minimal posterior offset distal to the fracture. There is no angular deformity. XR/XR femur LT 2V IMPRESSION: There is a fracture of the proximal diaphysis of the left femur with full shaft width medial offset distal to the fracture. Electronically signed by: Dane Mg MD 07/09/2025 12:09 PM [facility]
--- NOTE | ~2025-07-09 | XR_ITS ---
EXAMINATION: XR TIBIA FIBULA 2 VIEWS LEFT HISTORY: ? fracture COMPARISON: There are no prior studies available for comparison. FINDINGS: AP and lateral views of the left tibia and fibula are submitted. The bones are osteopenic. There is no fracture or dislocation. There is degenerative change involving the lateral compartment of the knee. The ankle joint is maintained. The soft tissues are unremarkable. XR/XR tibia fibula LT 2V IMPRESSION: Osteopenia. No evidence of fracture of the left tibia or fibula. Electronically signed by: Alfredo Machuca MD 07/09/2025 12:08 PM K[facility]
--- NOTE | ~2025-07-09 | FL_ITS ---
EXAMINATION: FL GUIDANCE ONLY HISTORY: LEFT IM NAIL COMPARISON: Comparison is made with the prior examination of the left femur dated 07/09/2025. TECHNIQUE: Fluoroscopy time: 2 minutes, 27 seconds. Cumulative Dose: 29.40 mGy. DAP: 5200.90 mGycm2 Images: 5. FINDINGS: Fluoroscopic spot films of the left femur and a straight internal fixation of the previously seen diaphyseal fracture with a compression screw and intramedullary tejas. FL/FL guidance in OR IMPRESSION: Fluoroscopy during procedure. Please see procedure report for additional information. Electronically signed by: Alfredo Machuca MD 07/13/2025 08:49 AM K[facility]
[2025-07-09 11:28] VITALS: BP 159/73; BP 169/80; PULSE 84; PULSE 85; RESP 20; TEMP 36.7; O2SAT 98; BMI 30.7
--- NOTE | 2025-07-09 11:34 | ECG_ITS ---
Test Reason : CLEARANCE Blood Pressure : */* mmHG Vent. Rate : 71 BPM Atrial Rate : 71 BPM P-R Int : 124 ms QRS Dur : 86 ms QT Int : 408 ms P-R-T Axes : -13 10 43 degrees QTcB Int : 443 ms Normal sinus rhythm Normal ECG When compared with ECG of 08-Feb-2016 09:14, No significant change was found Referred By: Alva Ortiz Electronically Signed By: YANN CORREIA
--- NOTE | 2025-07-09 11:41 | ED.LOWEXIN ---
HPI - Extremity Injury (Lower) General Chief Complaint: Extremity Injury, Lower Stated Complaint: pain lt leg Time Seen by Provider: 07/09/25 11:30 Source: patient Mode of arrival: ambulatory Limitations: no limitations History of Present Illness ED Provider: ALVA ORTIZ PA-C HPI Narrative: 84 year old female with pmhx significant for osteopenia presents to the ED today via EMS for evaluation of left leg injury sustained prior to arrival. Patient states she sat on the toilet to pass a BM when she felt a pop in her left leg. She did not fall to the ground or strike her head. EMS was contacted and on arrival, noted patient to be seated on the toilet with an obvious midshift femur deformity. Applied traction splint in field. EMS gave 200 mcg fentanyl en route. She denies any pain at present, reports some nausea. No vomiting. Related Data Home Medications ?Medication ?Instructions ?Recorded ?Confirmed multivitamin (Multiple Vitamins 1 tab PO DAILY 03/30/21 05/05/25 tablet) estradiol 0.01% (0.1 mg/gram) 1 g vaginal 2XW 07/11/22 05/05/25 vaginal cream (Estrace) cholecalciferol (vitamin D3) 25 25 mcg PO DAILY 05/05/25 05/05/25 mcg (1,000 unit) capsule docusate sodium 250 mg capsule 250 mg PO DAILY 05/05/25 05/05/25 (Stool Softener) flaxseed oil 1,000 mg capsule 2,000 mg PO DAILY 05/05/25 05/05/25 Previous Rx's ?Medication ?Instructions ?Recorded acetaminophen 500 mg tablet 500 mg PO Q6H PRN fever #30 tabs 05/22/25 (Tylenol Extra Strength) Allergies Allergy/AdvReac Type Severity Reaction Status Date / Time meperidine (Demerol) Allergy Unknown hives Verified 07/09/25 11:35 From DEMEROL Allergy Severe SKIN FEELS Uncoded 05/25/25 14:01 LIKE SOMETHING CRAWLING ALL OVER Review of Systems Review of Systems: Yes all other systems are reviewed and are negative [facility] Past Medical History Attestation statement: The following information was validated with the patient. 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 Skin: Warm, dry, intact. No rashes or lesions. Head: Normocephalic, atraumatic. EENT: Hearing is intact b/l. Conjunctiva clear. PERRLA. EOM intact. Moist mucous membranes.? Cardiac: Chest wall symmetric. RRR Lungs: Normal respiratory effort without accessory muscle use. CTA bilaterally Abdomen: Soft, non-tender, non-distended. No rebound tenderness or guarding Back: No midline spinous or paraspinal tenderness. No step off deformity. Ext: +see photo below. LLE in traction splint. compartments soft, compressible. able to move all toes on left foot. strong dp pulse. Neuro: AOx3. Normal speech Course Course Course Narrative: 1236 -- CBC without leukocytosis or left shift. h&h stable. BUN 21, normal creatinine. random glucose 117 - no gap. liver function wnl. Imaging quite limited d/t patient being in traction splint. XR tib/fib unremarkable. xr femur showing fracture of proximal diaphysis of L femur with full shaft width medical offset distal to fracture. limited pelvic xr unremarkable. I spoke w/ janelle Ramírez - Recommending admission to medicine with plan to OR tomorrow. requesting patient be NPO at midnight. 1300 -- I discussed plan with patient and her daughter who is at bedside. They are agreeable with plan. patient continues to deny any pain at present. I have re-evaluated her LLE - CMS intact distally. compartments soft/compressible. > will reach out to hospitalist regarding admission. 1315 -- Spoke with hospitalist RYLAND dunn - patient admission accepted. akilah to place admission orders. Medications Administered Discontinued Medications Generic Name Dose Route Start Last Admin Trade Name Freq PRN Reason Stop Dose Admin Ondansetron HCl 4 mg 07/09/25 12:08 07/09/25 12:28 Ondansetron Hcl 4 Mg/2 Ml Vial IVPUSH 07/09/25 12:09 4 mg ONCE ONE Administration Medical Decision Making Medical Decision Making [facility] Narrative: 84 year old female with pmhx significant for osteopenia presents to the ED today via EMS for evaluation of left leg injury sustained prior to arrival. hypertensive, vitals are otherwise wnl. she is generally well appearing and in NAD. on exam, LLE in traction splint. compartments soft, compressible. able to move all toes on left foot. strong dp pulse. Differential diagnosis includes fracture, contusion, compartment syndrome, NV compromise Plan for labs, imaging, ekg, pain control, re-evaluation. Differential Diagnosis Differential Diagnoses: The differential diagnosis associated with the presentation includes as above. Admission/Observation Consideration of admission/observation: Escalation of care including admission/observation considered Patient admitted to medicine for surgical management of femur fracture. Consult Healthcare Provider Management of the patient was discussed with: Hospitalist (Akilah) and [employer] (janelle Ramírez) Lab Data [facility] Lab Attestation statement: I reviewed the patient's lab results. as above. 07/09/25 12:07 07/09/25 12:07 Labs: Lab Results 07/09/25 Range/Units 12:07 WBC 9.1 (4.8-10.8) X10*3/uL RBC 4.02 L (4.20-5.50) X10*6/uL Hgb 12.4 (12.0-16.0) g/dl Hct 37.9 (37.0-47.0) % MCV 94.3 (80.0-98.0) fL MCH 30.8 (27.0-33.0) pg MCHC 32.7 (31.0-35.0) g/dl RDW 14.1 (11.0-16.0) % Plt Count 283 (160-400) X10*3/uL MPV 9.8 (9.4-12.3) fL Immature Gran % (Auto) 0.3 (0.0-0.4) % Neut % (Auto) 68.3 (45-73) % Lymph % (Auto) 20.0 (20-40) % [place] % (Auto) 8.6 (2-11) % Eos % (Auto) 2.3 (0-4) % Baso % (Auto) 0.5 (0-2) % Lymph # (Auto) 1.8 (1.2-4.9) X10*3/uL [place] # (Auto) 0.8 (0.1-1.2) X10*3/uL Eos # (Auto) 0.2 (0.0-0.4) X10*3/uL Baso # (Auto) 0.1 (0.0-0.2) X10*3/uL Abs Immat Gran (auto) 0.03 (0.00-0.03) X10*3/uL Absolute Neuts (auto) 6.2 (2.0-8.3) x10*3/uL Absolute Nucleated RBC 0.000 (0.0-0.012) X10*3/uL Nucleated RBC % (auto) 0.0 (0.0-0.2) /100WBC Sodium 142 (135-145) mmol/L Potassium 3.9 (3.3-5.1) mmol/L Chloride 108 (96-108) mmol/L Carbon Dioxide 25 (22-29) mmol/L Anion Gap 13 (12-20) BUN 21 H (9-16) mg/dL Creatinine 0.66 (0.5-1.4) mg/dL Estim Creat Clear Calc 50.7 Estimated GFR > 60 Random Glucose 117 H (60-115) mg/dL Calcium 8.7 (8.4-10.2) mg/dL Magnesium 2.1 (1.6-2.6) mg/dL Total Bilirubin 0.3 (0.0-1.0) mg/dL AST 23 (5-31) U/L ALT 10 (0-31) U/L Alkaline Phosphatase 87 (39-117) U/L Total Protein 6.8 (6.5-8.0) g/dL Albumin 4.1 (3.5-5.0) g/dL Blood Type O Negative Antibody Screen NEGATIVE Independent Interpretation I performed an independent interpretation of an: EKG and Plain X-Ray Interpretation: ekg showing normal sinus rhythm, rate of 71 beats per minute, QT 408, QTC 443, no acute ischemic changes or st elevations xr L femur showing mid shaft fracture xr l pelvis without fracture xr l tib/fib without fracture Radiology Impression Discussion of test interpretation with radiology: I have reviewed the radiologist's reading. Radiologist Impression: Date of Service: 07/09/25 Procedure(s): XR tibia fibula LT 2V Accession Number(s): [id number] cc: Alva Ortiz~ Reason for Exam: ?fracture EXAMINATION: XR TIBIA FIBULA 2 VIEWS LEFT HISTORY: ? fracture COMPARISON: There are no prior studies available for comparison. FINDINGS: AP and lateral views of the left tibia and fibula are submitted. The bones are osteopenic. There is no fracture or dislocation. There is degenerative change involving the lateral compartment of the knee. The ankle joint is maintained. The soft tissues are unremarkable. XR/XR tibia fibula LT 2V IMPRESSION: Osteopenia. No evidence of fracture of the left tibia or fibula. Procedure(s): XR femur LT 2V Accession Number(s): [id number] cc: Alva Ortiz~ Reason for Exam: ?fracture, in traction EXAMINATION: XR FEMUR, LEFT CLINICAL INFORMATION: fracture, in traction COMPARISON: None available. TECHNIQUE: AP and lateral views of the left femur were obtained. FINDINGS: There is a fracture through the left femoral diaphysis at the junction of the middle third and the proximal third portion of the femur. There is full shaft width medial displacement of the femur distal to the fracture. On the lateral, there is minimal posterior offset distal to the fracture. There is no angular deformity. XR/XR femur LT 2V IMPRESSION: There is a fracture of the proximal diaphysis of the left femur with full shaft width medial offset distal to the fracture. Electronically signed by: Dane Mg MD 07/09/2025 12:09 PM EST RP Procedure(s): XR pelvis 1-2V Accession Number(s): [id number] cc: Alva Ortiz~ Reason for Exam: ?fracture EXAMINATION: XR PELVIS CLINICAL INFORMATION: ?fracture COMPARISON: None available. TECHNIQUE: AP view of the pelvis. FINDINGS: Study is extremely limited due to technique, rotation, and incomplete coverage of the pelvis. No gross pelvic or hip fracture is identified. There is a displaced proximal diaphyseal transverse fracture of the left femur. Refer to the dedicated left femur radiographs. XR/XR pelvis 1-2V IMPRESSION: Extremely limited exam. No definite pelvic or hip fracture. Electronically signed by: Fernando Hutson MD 07/09/2025 12:07 PM EST RP Independent Historian Clinical information obtained from an independent historian. History obtained from or confirmed by: EMS and Other (daughter) External Record Review External record reviewed: Inpatient record Prescription Management I considered prescription management with: Pain Medication Chronic Conditions Patient?s care impacted by: Other (osteopenia) Social Determinants Patient?s care significantly limited by Social Determinants of Health including: Other Social Determinant of Health Critical Care Time Critical Care Time Critical Care Time: Yes Total Critical Care Time: 40 Attestation: Critical care time in the amount of 40 minutes has been provided to the patient in terms of direct patient care, frequent reevaluation, consultation with ortho and hospitalist, review and interpretation of medical data and results, and management of potentially life-threatening conditions. This is all outside of any medical procedures. Discharge Plan Discharge Clinical Impression: Closed left femoral fracture Patient Disposition: Admitted As Inpatient
[2025-07-09 11:56] VITALS: BP 154/70; PULSE 78; RESP 16; O2SAT 99
--- NOTE | 2025-07-09 12:11 | MHC.EDTECH ---
EKG and labs delayed d/t xray at Pts side.
[2025-07-09 12:15] LABS: MANUAL DIFF FLAG NO
[2025-07-09 12:19] LABS: Hematocrit 37.9 % (37.0-47.0); Hemoglobin 12.4 g/dl (12.0-16.0); Imm Gran Abs Auto 0.03 X10*3/uL (0.00-0.03); Imm Gran Pct Auto 0.3 % (0.0-0.4); Lymphocytes Absolute Auto 1.8 X10*3/uL (1.2-4.9); Mean Corpuscular HGB Conc 32.7 g/dl (31.0-35.0); Mean Corpuscular Hemoglobin 30.8 pg (27.0-33.0); Mean Corpuscular Volume 94.3 fL (80.0-98.0); NRBC Abs Auto 0.000 X10*3/uL (0.0-0.012); NRBC Pct Auto 0.0 /100WBC (0.0-0.2); Platelet Count 283 X10*3/uL (160-400); Red Blood Count 4.02 X10*6/uL (4.20-5.50); White Blood Count 9.1 X10*3/uL (4.8-10.8)
[2025-07-09 12:31] LABS: Alanine Aminotransferase 10 U/L (0-31); Albumin Level 4.1 g/dL (3.5-5.0); Alkaline Phosphatase 87 U/L (39-117); Anion Gap 13 (12-20); Aspartate Amino Transferase 23 U/L (5-31); Blood Urea Nitrogen 21 mg/dL (9-16); Calcium 8.7 mg/dL (8.4-10.2); Carbon Dioxide 25 mmol/L (22-29); Chloride 108 mmol/L (96-108); Creatinine Clr Calc Pharmacy 50.7; Estimated Glomerular Filt Rate > 60; Magnesium 2.1 mg/dL (1.6-2.6); Potassium 3.9 mmol/L (3.3-5.1); Sodium 142 mmol/L (135-145); Total Protein 6.8 g/dL (6.5-8.0)
--- NOTE | 2025-07-09 12:57 | PM.IMHP ---
History of Present Illness Date of Service: 07/09/25 Attending physician on admission: Radu Crooks Chief Complaint: left leg pain This is an 84-year-old female with history of osteoporosis who presents to the emergency department with left leg pain. She was in her usual state of health when she sat down on the toilet earlier today. Upon sitting down she heard a snap in her left leg and she was unable to stand up. Her daughter called 911. EMS found her to have closed femur deformity and placed her in traction splint. In the emergency department imaging confirmed fracture of the proximal diaphysis of the left femur. The orthopedic team requested admission to the medical service. She has history of osteoporosis and was previously treated with alendronate but she self-discontinued due to concerns of muscle wasting as per previous PCP note. Review of Systems Review of Systems: Yes all other systems are reviewed and are negative Constitutional: Constitutional: Denies chills and Denies fever(s) Cardiovascular: Cardiovascular: Denies chest pain, Denies palpitations and Denies dyspnea Respiratory: Respiratory: Denies cough and Denies dyspnea Endocrine: Endocrine: Denies palpitations [facility] Medical History Muscle weakness Osteoporosis Surgical History History of cataract surgery Social History Housing: House Alcohol intake: never Patient Tobacco Use Status: Former Tobacco user e-Cigarette/Vaping Use: Never Used Second Hand Smoke Exposure: Yes service: No Current occupational status: retired 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 Cognitive needs: Yes (cane) Hearing needs: No Vision needs: Yes (Reading glasses) Meds Allergies Allergy/AdvReac Type Severity Reaction Status Date / Time meperidine (Demerol) Allergy Unknown hives Verified 07/09/25 11:35 From DEMEROL Allergy Severe SKIN FEELS Uncoded 05/25/25 14:01 LIKE SOMETHING CRAWLING ALL OVER Active Medications: Current Medications Cefazolin Sodium/Dextrose (Ancef) 2 gm in 50 mls @ 100 mls/hr IV PREOP GERSON Stop: 07/10/25 23:00 Home Medications ?Medication ?Instructions ?Recorded ?Confirmed ?Last Taken ?Type multivitamin (Multiple Vitamins 1 tab PO DAILY 03/30/21 07/09/25 Unknown History tablet) estradiol 0.01% (0.1 mg/gram) 1 g vaginal 2XW 07/11/22 07/09/25 Unknown History vaginal cream (Estrace) cholecalciferol (vitamin D3) 25 25 mcg PO DAILY 05/05/25 07/09/25 Unknown History mcg (1,000 unit) capsule flaxseed oil 1,000 mg capsule 1,000 mg PO DAILY 05/05/25 07/09/25 Unknown History calcium carbonate (Calcium 600) 600 mg PO DAILY 07/09/25 07/09/25 Unknown History docusate sodium 100 mg capsule 200 mg PO DAILY 07/09/25 07/09/25 Unknown History naproxen sodium 220 mg tablet 220 mg PO BID 07/09/25 07/09/25 Unknown History Physical Exam Vital Signs and Narrative: Vital Signs: Last Vital Signs Temp 98.1 F 07/09/25 11:28 Pulse 78 07/09/25 11:56 Resp 16 07/09/25 11:56 BP 154/70 H 07/09/25 11:56 Pulse Ox 99 07/09/25 11:56 O2 Del Method Room Air 07/09/25 11:56 Oxygen Flow Rate 2 07/09/25 11:28 BMI result Body Mass Index 30.7 Const: General: cooperative, alert and awake Nutritional Appearance: average body habitus Orientation/consciousness: patient oriented x3 Resp: Effort & Inspection: normal respiratory effort, able to speak in complete sentences, no respiratory distress and no use of accessory muscles Cardio: Rate: regular rate GI: Inspection: No distended Palpation (GI): Soft to palpation Neuro: General: patient oriented x3, moves all extremities and CN's II-XI intact bilaterally Extrem: Other: LLE in traction splint Results Labs 07/09/25 12:07 07/09/25 12:07 Labs: Laboratory Results - last 24 hr 07/09/25 12:07 MCV 94.3 MCH 30.8 MCHC 32.7 RDW 14.1 Plt Count 283 MPV 9.8 Immature Gran % (Auto) 0.3 Neut % (Auto) 68.3 Lymph % (Auto) 20.0 [place] % (Auto) 8.6 Eos % (Auto) 2.3 Baso % (Auto) 0.5 Lymph # (Auto) 1.8 [place] # (Auto) 0.8 Eos # (Auto) 0.2 Baso # (Auto) 0.1 Abs Immat Gran (auto) 0.03 Absolute Neuts (auto) 6.2 Absolute Nucleated RBC 0.000 Nucleated RBC % (auto) 0.0 Anion Gap 13 Estim Creat Clear Calc 50.7 Estimated GFR > 60 Random Glucose 117 H Calcium 8.7 Magnesium 2.1 Total Bilirubin 0.3 AST 23 ALT 10 Alkaline Phosphatase 87 Total Protein 6.8 Albumin 4.1 Blood Type O Negative Antibody Screen NEGATIVE Imaging Radiologist's Impressions: Impressions Pelvis X-Ray 07/09/25 11:45 IMPRESSION: Extremely limited exam. No definite pelvic or hip fracture. Electronically signed by: Fernando Hutson MD 07/09/2025 12:07 PM EST RP Femur X-Ray 07/09/25 11:48 IMPRESSION: There is a fracture of the proximal diaphysis of the left femur with full shaft width medial offset distal to the fracture. Electronically signed by: Dane Mg MD 07/09/2025 12:09 PM EST RP Tibia/Fibula X-Ray 07/09/25 11:49 IMPRESSION: Osteopenia. No evidence of fracture of the left tibia or fibula. Electronically signed by: Alfredo Machuca MD 07/09/2025 12:08 PM EST RP Assessment and Plan (1) Closed left femoral fracture: Status: Acute Plan This is an 84 female with a history of osteoporosis who presents to the emergency department with left leg pain found to have left femur fracture Left femur fracture Orthopedic surgery consultation Tentative plan for surgery tomorrow, NPO at midnight Pain control dvt ppx - hold chemoprophylaxis for now due to planned procedure, start chemoprophylaxis as per ortho recommendation following surgery Quality Stroke Does the patient have a stroke diagnosis?: No VTE Prior VTE?: No VTE Risk Level:: Medical - moderate - high VTE Device Contraindication: N/A - Device Ordered VTE Drug Contraindication: Treatment Not Indicated
[2025-07-09] MEDS: Lactated Ringers 1,000 ML 80 ML IVCONT ×2 (13:27→23:21)
[2025-07-09 13:32] VITALS: BP 150/71; PULSE 66; RESP 16; O2SAT 98
--- NOTE | 2025-07-09 13:32 | PC.NURSE ---
Pt presents to ED via EMS from home, sat onto the toilet and felt a pop/crack in left leg. NO fall or head hit/ LOC. Pt remained on the toilet till EMS got there. EMS placed traction splint due to obvious midline femur fx closed deformity. 200 mcg of fentanyl given by EMS. Pt has +pedal pulses on arrival, traction splint remained in place. Alert and oriented. Breathing even and unlabored. Minimal pain. IV: EMS line 20G in RAC, IV placed in left forearm 20G. Laird placed with + urine output PER ORTHO: leave traction splint in place.
--- NOTE | 2025-07-09 14:07 | PHA.MEDREC ---
Pharmacy Consult ? Medication Reconciliation Pharmacy has completed the medication reconciliation.Med rec complete
--- NOTE | 2025-07-09 14:31 | PM.CNOR ---
History of Present Illness HPI Consult date: 07/09/25 Chief complaint: femur fracture Narrative: Patient is an 84-year-old female with past medical history significant for osteoporosis who presents to the emergency department after experiencing significant left lower extremity pain and deformity of the left femur after sitting down on the toilet today Patient reports no other acute fall or injury X-rays taken in the emergency department did reveal displaced proximal femoral shaft fracture No suspicious bony lesion or other potential etiologies for fracture seen on x-ray Patient is in a traction splint in the ED Pain well managed Patient reports normal sensation to the left lower extremity distal to the injury No other acute complaints or concerns at this time Review of Systems Review of Systems: Yes all other systems are reviewed and are negative [facility] Past Medical History Medical History Muscle weakness Osteoporosis Surgical History Surgical History History of cataract surgery Social History Social History Housing: House Alcohol intake: never Patient Tobacco Use Status: Former Tobacco user Smoked in Last 30 Days: No e-Cigarette/Vaping Use: Never Used Second Hand Smoke Exposure: Yes Use of substances other than those prescribed or required for medical reasons: No Advance Directives: No Advance Directives Information Provided: No service: No Current occupational status: retired 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 Cognitive needs: Yes (cane) Hearing needs: No Vision needs: Yes (Reading glasses) Meds Allergies Allergy/AdvReac Type Severity Reaction Status Date / Time meperidine (Demerol) Allergy Unknown hives Verified 07/09/25 11:35 From DEMEROL Allergy Severe SKIN FEELS Uncoded 05/25/25 14:01 LIKE SOMETHING CRAWLING ALL OVER Active Medications: Current Medications Acetaminophen (Acetaminophen 325 Mg Tablet) 650 mg PO Q6H PRN PRN Reason: Pain, Mild 1-3,fever,headache Calcium Carbonate (Calcium Carbonate 750 Mg Tab.Chew) 750 mg PO Q4H PRN PRN Reason: Heartburn Cefazolin Sodium/Dextrose (Ancef) 2 gm in 50 mls @ 100 mls/hr IV PREOP GERSON Stop: 07/10/25 23:00 Lactated Ringer's (Lr) 1,000 mls @ 80 mls/hr IVCONT .[id number] [facility] Last Admin: 07/09/25 13:27 Dose: 80 mls/hr Acetaminophen (Ofirmev) 1,000 mg in 100 mls @ 400 mls/hr IV Q6H PRN PRN Reason: Pain, Moderate(Pain Scale 4-6) Stop: 07/10/25 07:44 Magnesium Hydroxide (Milk Of Magnesia 30 Ml Oral.Susp) 30 ml PO DAILY PRN PRN Reason: Constipation Melatonin (Melatonin 3 Mg Tablet) 6 mg PO BEDTIME PRN PRN Reason: Insomnia Morphine Sulfate (Morphine Sulfate 4 Mg/Ml Cartridge) 2 mg IVPUSH Q4H PRN; Protocol PRN Reason: Pain, Severe (Pain Scale 7-10) Sodium Chloride (0.9 % Sodium Chloride Flush 3 Ml Syringe) 3 ml IVFLUSH QSHIFT [facility] Home Medications ?Medication ?Instructions ?Recorded ?Confirmed ?Last Taken ?Type multivitamin (Multiple Vitamins 1 tab PO DAILY 03/30/21 07/09/25 Unknown History tablet) estradiol 0.01% (0.1 mg/gram) 1 g vaginal 2XW 07/11/22 07/09/25 Unknown History vaginal cream (Estrace) cholecalciferol (vitamin D3) 25 25 mcg PO DAILY 05/05/25 07/09/25 Unknown History mcg (1,000 unit) capsule flaxseed oil 1,000 mg capsule 1,000 mg PO DAILY 05/05/25 07/09/25 Unknown History calcium carbonate (Calcium 600) 600 mg PO DAILY 07/09/25 07/09/25 Unknown History docusate sodium 100 mg capsule 200 mg PO DAILY 07/09/25 07/09/25 Unknown History naproxen sodium 220 mg tablet 220 mg PO BID 07/09/25 07/09/25 Unknown History Physical Exam Vital Signs: Vital Signs: Last Vital Signs Temp 98.1 F 07/09/25 11:28 Pulse 66 07/09/25 13:32 Resp 16 07/09/25 13:32 BP 150/71 H 07/09/25 13:32 Pulse Ox 98 07/09/25 13:32 O2 Del Method Room Air 07/09/25 13:32 Oxygen Flow Rate 2 07/09/25 11:28 BMI result Body Mass Index 30.7 Extrem: Other: Patient's left leg is noted to have a deformity in the proximal aspect of the left femur No erythema, ecchymosis, edema noted No lacerations, abrasions, open areas No evidence of infection Patient reports tenderness to palpation of the proximal aspect of the left femur Compartments soft, nontender Distal sensation intact Capillary refill brisk Results Labs 07/09/25 12:07 07/09/25 12:07 Labs: Abnormal lab results 07/09/25 Range/Units 12:07 RBC 4.02 L (4.20-5.50) X10*6/uL BUN 21 H (9-16) mg/dL Random Glucose 117 H (60-115) mg/dL H & H 07/09/25 Range/Units 12:07 Hgb 12.4 (12.0-16.0) g/dl Hct 37.9 (37.0-47.0) % All other labs normal. Diagnostic results Hip x-ray: report reviewed and image reviewed Assessment and Plan (1) Fracture of femoral shaft, left, closed: Status: Acute Plan 1. Left femoral shaft fracture Date of injury 07/09/2025 Case was discussed with Dr. Mcginnis, and a collaborative treatment plan was formed: Based off of clinical exam findings and imaging the patient does likely have a left femoral shaft fracture which would benefit from surgical intervention. The patient does understand nonsurgical intervention would result in nonweightbearing for 3 months, likely difficulty ambulating even beyond that, as well as the risks of remaining nonweightbearing for 3 months, including but not limited to pneumonia, bed sores, and physical decompensation.. Given the patient's activity level and desire to continue remaining active, it would be recommended to pursue surgical intervention. We discussed the procedure in detail along with the risks, benefits, and alternatives. Risks including but not limited to infection, injury to surrounding nerves, soft tissue structures, and bone, small and large vessels, stiffness, fracture, DVT/PE, and the need for further surgery, along with intraoperative complications including but not limited to . We discussed postoperative recovery which includes weight-bearing as tolerated on the left lower extremity after surgery, PT, and likely rehab placement. The patient expresses understanding of this and would like to proceed with long IM nail of left femoral shaft. The patient will be booked accordingly. NPO at midnight for surgery tomorrow Admit to medicine Procedures Date of Service Date of Service: 07/09/25
[2025-07-09 14:55] VITALS: BP 158/56; PULSE 75; RESP 16; RESP 18; TEMP 36.4; O2SAT 97
--- NOTE | 2025-07-09 14:58 | HO.NURTONUR ---
PER MD: This is an 84-year-old female with history of osteoporosis who presents to the emergency department with left leg pain. She was in her usual state of health when she sat down on the toilet earlier today. Upon sitting down she heard a snap in her left leg and she was unable to stand up. Her daughter called 911. EMS found her to have closed femur deformity and placed her in traction splint. In the emergency department imaging confirmed fracture of the proximal diaphysis of the left femur. The orthopedic team requested admission to the medical service. She has history of osteoporosis and was previously treated with alendronate but she self-discontinued due to concerns of muscle wasting as per previous PCP note. PER RN: Alert and oriented IV: 20G in left wrist, 20G in right AC Meds: LR 80mL/hr Plan: surgery tomorrow afternoon NPO AFTER MIDNIGHT Just gave her IV PRN morphine for pain Still has the traction splint on from EMS, ORTHO knows and said to keep it on, however, it is becoming more uncomfortable for pt Laird cath in place
[2025-07-09 15:46] VITALS: BMI 30.2
[2025-07-09 16:37] VITALS: BP 160/74; PULSE 83; RESP 16; TEMP 36.4; O2SAT 97
--- NOTE | 2025-07-09 19:21 | HO.SKINPHOTO ---
Pt was in traction upon arrival to floor. Velcro straps left rodriguez on foot, ankle and hernandez. Location:left inner ankle Category: Stage: Length: Width: Depth: cm Location:left outer ankle Category: Stage: Length: Width: Depth: cm Location:left hernandez Category: Stage: Length: Width: Depth: cm Location: Category: Stage: Length: Width: Depth: cm Location: Category: Stage: Length: Width: Depth: cm Location: Category: Stage: Length: Width: Depth: cm
[2025-07-09 20:00] VITALS: BP 147/70; PULSE 71; RESP 17; TEMP 36.2; O2SAT 94
[2025-07-09] MEDS: 0.9 % Sodium Chloride Flush 3 ML SYRINGE IVFLUSH (22:02)
[2025-07-10] VITALS (9 sets, daily range): BP systolic 127–160; BP diastolic 58–74; PULSE 74–96; RESP 14–18; TEMP 36–37.3; O2SAT 93–97
[2025-07-10 06:28] LABS: Hematocrit 38.1 % (37.0-47.0); Hemoglobin 12.5 g/dl (12.0-16.0); Mean Corpuscular HGB Conc 32.8 g/dl (31.0-35.0); Mean Corpuscular Hemoglobin 30.7 pg (27.0-33.0); Mean Corpuscular Volume 93.6 fL (80.0-98.0); NRBC Abs Auto 0.000 X10*3/uL (0.0-0.012); NRBC Pct Auto 0.0 /100WBC (0.0-0.2); Platelet Count 291 X10*3/uL (160-400); Red Blood Count 4.07 X10*6/uL (4.20-5.50); White Blood Count 11.6 X10*3/uL (4.8-10.8)
[2025-07-10 06:58] LABS: Anion Gap 14 (12-20); Blood Urea Nitrogen 12 mg/dL (9-16); Calcium 8.9 mg/dL (8.4-10.2); Carbon Dioxide 26 mmol/L (22-29); Chloride 106 mmol/L (96-108); Creatinine Clr Calc Pharmacy 58.2; Estimated Glomerular Filt Rate > 60; Potassium 3.7 mmol/L (3.3-5.1); Sodium 142 mmol/L (135-145)
--- NOTE | 2025-07-10 09:29 | P.PNIM_ITS ---
Subjective Subjective Date of Service: 07/10/25 Interval History: left leg pain Physical Exam 2 Vital Signs: Vital Signs: Last Vital Signs Temp 97.6 F 07/10/25 07:41 Pulse 77 07/10/25 07:41 Resp 16 07/10/25 07:41 BP 137/63 07/10/25 07:41 Pulse Ox 93 07/10/25 07:41 O2 Del Method Room Air 07/10/25 07:41 Oxygen Flow Rate 2 07/09/25 11:28 BMI result Body Mass Index 30.2 Extrem: Other: Patient's left leg is noted to have a deformity in the proximal aspect of the left femur No erythema, ecchymosis, edema noted No lacerations, abrasions, open areas No evidence of infection Patient reports tenderness to palpation of the proximal aspect of the left femur Compartments soft, nontender Distal sensation intact Capillary refill brisk Objective Data Active Medications Acetaminophen (Acetaminophen 325 Mg Tablet) 650 mg PO Q6H PRN PRN Reason: Pain, Mild 1-3,fever,headache Calcium Carbonate (Calcium Carbonate 750 Mg Tab.Chew) 750 mg PO Q4H PRN PRN Reason: Heartburn Calcium Carbonate (Calcium Carbonate 750 Mg Tab.Chew) 750 mg PO DAILY [facility] Docusate Sodium (Docusate Sodium 100 Mg Capsule) 200 mg PO DAILY [facility] Cefazolin Sodium/Dextrose (Ancef) 2 gm in 50 mls @ 100 mls/hr IV PREOP [facility] Stop: 07/10/25 23:00 Lactated Ringer's (Lr) 1,000 mls @ 80 mls/hr IVCONT .[id number] [facility] Last Admin: 07/09/25 23:21 Dose: 80 mls/hr Documented By: AMIE Magnesium Hydroxide (Milk Of Magnesia 30 Ml Oral.Susp) 30 ml PO DAILY PRN PRN Reason: Constipation Melatonin (Melatonin 3 Mg Tablet) 6 mg PO BEDTIME PRN PRN Reason: Insomnia Morphine Sulfate (Morphine Sulfate 4 Mg/Ml Cartridge) 2 mg IVPUSH Q4H PRN; Protocol PRN Reason: Pain, Severe (Pain Scale 7-10) Last Admin: 07/10/25 05:51 Dose: 2 mg Documented By: AMIE Multivitamins/Vitamin C (Multivitamin Tablet) 1 tab PO DAILY [facility] Ondansetron HCl (Ondansetron Hcl 4 Mg/2 Ml Vial) 4 mg IVPUSH Q6H PRN PRN Reason: Nausea and Vomiting Last Admin: 07/09/25 17:05 Dose: 4 mg Documented By: JENNIE Sodium Chloride (0.9 % Sodium Chloride Flush 3 Ml Syringe) 3 ml IVFLUSH QSHIFT [facility] Last Admin: 07/09/25 22:02 Dose: 3 ml Documented By: AMIE Vitamin D (Cholecalciferol (Vitamin D3) 25 Mcg Tablet) 25 mcg PO DAILY [facility] Labs 07/10/25 05:41 07/10/25 05:41 Labs: Laboratory Results - last 24 hr 07/09/25 07/10/25 12:07 05:41 MCV 94.3 93.6 MCH 30.8 30.7 MCHC 32.7 32.8 RDW 14.1 14.0 Plt Count 283 291 MPV 9.8 10.0 Immature Gran % (Auto) 0.3 Neut % (Auto) 68.3 Lymph % (Auto) 20.0 [place] % (Auto) 8.6 Eos % (Auto) 2.3 Baso % (Auto) 0.5 Lymph # (Auto) 1.8 [place] # (Auto) 0.8 Eos # (Auto) 0.2 Baso # (Auto) 0.1 Abs Immat Gran (auto) 0.03 Absolute Neuts (auto) 6.2 Absolute Nucleated RBC 0.000 0.000 Nucleated RBC % (auto) 0.0 0.0 Anion Gap 13 14 Estim Creat Clear Calc 50.7 58.2 Estimated GFR > 60 > 60 Random Glucose 117 H 93 Calcium 8.7 8.9 Magnesium 2.1 Total Bilirubin 0.3 AST 23 ALT 10 Alkaline Phosphatase 87 Total Protein 6.8 Albumin 4.1 Blood Type O Negative Antibody Screen NEGATIVE Assessment and Plan (1) Osteoporosis: Status: Acute Plan 84F PMH osteoporosis presented with left leg pain, found to have femoral shaft fracture Proximal left femoral shaft fracture due to osteoporosis Pain control, plan for surgery today Calcium, vitamin-D DVT prophylaxis-mechanical due to planned surgery Full code reason for continued hospitalization: Surgery planned Quality Stroke Does the patient have a stroke diagnosis?: No VTE Prior VTE?: No VTE Risk Level:: Medical - moderate - high VTE Device Contraindication: N/A - Device Ordered VTE Drug Contraindication: Treatment Not Indicated
--- NOTE | 2025-07-10 09:46 | HO.WOUND ---
Wound Consult: Initial 84 yr old female admitted to [facility] on 07/09/25- See progress notes and H&P for detailed history. Wound consult placed for left angle/lower leg. Patient agreeable to assessment and photo documentation. Patient admitted with femur fracture, EMS applied traction/brace and upon arrival, nursing staff removed to assess skin/due to discomfort. Previous pictures reveal intact, indented and mildly red skin to the areas where the brace was. Follow up today revealed intact skin largely flesh toned and blanching, without further indentation or skin breakdown. Traction/brace no longer in use, surgical intervention scheduled for today. Left leg Left ankle Recommendations: 1. Turn and Reposition every 2 hours and as needed for patient comfort. Use pillows or wedges to support off loading positions. 2. Off Load all bony prominences with use of pillows and heel boots if needed. Apply Preventative foams where needed. 3. Monitor for incontinence and moisture control, use barrier creams when needed for prevention and treatment. 4. Provide adequate and supplemental nutrition. 5. Order or Continue low air loss mattress. 6. When applicable maintain blood glucose levels per Providers order. Re-consult wound care Nurse for wound deterioration or wound changes.
--- NOTE | 2025-07-10 09:55 | MHC.CM.PN ---
IMM 07/10/25 DX Femur FX Lives with other family members She is independent with all functional mobility DME walker uses prn r/t lyme dx OR planned for this afternoon. Preferences for Rehab obtained and referrals have been sent. 1st choice is [facility]. [facility] referrals have also been sent. Insurance auth will be needed. [facility] via [facility].
[2025-07-10] MEDS: 0.9 % Sodium Chloride Flush 3 ML SYRINGE IVFLUSH ×2 (10:27→21:22)
[2025-07-10] MEDS: Lactated Ringers 1,000 ML 80 ML IVCONT ×2 (10:37→21:25)
--- NOTE | 2025-07-10 12:42 | PC.NURSE ---
patient noted to have #20G IV to right wrist- dressing clean dry intact; IV patent, within normal limits.
--- NOTE | 2025-07-10 13:29 | P.CONAN_ITS ---
Documented by User: Carol Lund NP 07/10/25 08:57 HPI - Anesthesia Eval Consult details Narrative: 84 yr old female for left IM nailing No CP or SOB with light physical activity; using walker for past month 2/2 leg weakness & pain, was referred to rheum. Surgery for cataracts only. Osteoporosis: on alendronate [facility] Active Problems Active Problems: All Active Problems Fracture of femoral shaft, left, closed (Acute) Closed left femoral fracture (Acute) Left leg pain (Acute) Lower extremity weakness (Acute) Weakness (Acute) Thigh pain (Acute) Abnormal laboratory test (Acute) Health maintenance examination (Acute) Osteoarthritis (Acute) Herpes zoster (Acute) Dupuytren's contracture of right hand (Acute) Distal radius fracture, left (Acute) Muscle weakness (Acute) Osteoporosis (Acute) Past Medical History Medical History Lyme disease Muscle weakness Osteoporosis Family History Family history of problems with anesthesia: No Surgical History Surgical History History of cataract surgery History of Problems with Anesthesia: No Social History Social History Household Members: Family Housing: House Do you presently have visiting nurse or other home services: No Alcohol intake: never Patient Tobacco Use Status: Former Tobacco user Tobacco use type: Cigarette e-Cigarette/Vaping Use: Never Used Second Hand Smoke Exposure: Yes service: No Current occupational status: retired 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 Cognitive needs: Yes (cane) Hearing needs: No Vision needs: Yes (Reading glasses) Meds Allergies Allergy/AdvReac Type Severity Reaction Status Date / Time meperidine (Demerol) Allergy Unknown hives Verified 07/10/25 12:46 From DEMEROL Allergy Severe SKIN FEELS Uncoded 07/10/25 12:46 LIKE SOMETHING CRAWLING ALL OVER Active Medications: Current Medications Acetaminophen (Acetaminophen 325 Mg Tablet) 650 mg PO Q6H PRN PRN Reason: Pain, Mild 1-3,fever,headache Calcium Carbonate (Calcium Carbonate 750 Mg Tab.Chew) 750 mg PO Q4H PRN PRN Reason: Heartburn Calcium Carbonate (Calcium Carbonate 750 Mg Tab.Chew) 750 mg PO DAILY [facility] Docusate Sodium (Docusate Sodium 100 Mg Capsule) 200 mg PO DAILY [facility] Cefazolin Sodium/Dextrose (Ancef) 2 gm in 50 mls @ 100 mls/hr IV PREOP [facility] Stop: 07/10/25 23:00 Lactated Ringer's (Lr) 1,000 mls @ 80 mls/hr IVCONT .[id number] [facility] Last Admin: 07/09/25 23:21 Dose: 80 mls/hr Magnesium Hydroxide (Milk Of Magnesia 30 Ml Oral.Susp) 30 ml PO DAILY PRN PRN Reason: Constipation Melatonin (Melatonin 3 Mg Tablet) 6 mg PO BEDTIME PRN PRN Reason: Insomnia Morphine Sulfate (Morphine Sulfate 4 Mg/Ml Cartridge) 2 mg IVPUSH Q4H PRN; Protocol PRN Reason: Pain, Severe (Pain Scale 7-10) Last Admin: 07/10/25 05:51 Dose: 2 mg Multivitamins/Vitamin C (Multivitamin Tablet) 1 tab PO DAILY [facility] Ondansetron HCl (Ondansetron Hcl 4 Mg/2 Ml Vial) 4 mg IVPUSH Q6H PRN PRN Reason: Nausea and Vomiting Last Admin: 07/09/25 17:05 Dose: 4 mg Sodium Chloride (0.9 % Sodium Chloride Flush 3 Ml Syringe) 3 ml IVFLUSH QSHIFT [facility] Last Admin: 07/09/25 22:02 Dose: 3 ml Vitamin D (Cholecalciferol (Vitamin D3) 25 Mcg Tablet) 25 mcg PO DAILY [facility] Home Medications ?Medication ?Instructions ?Recorded ?Confirmed ?Last Taken ?Type multivitamin (Multiple Vitamins 1 tab PO DAILY 1 07/09/25 Unknown History tablet) estradiol 0.01% (0.1 mg/gram) 1 g vaginal 2XW 07/11/22 07/09/25 Unknown History vaginal cream (Estrace) cholecalciferol (vitamin D3) 25 25 mcg PO DAILY 07/09/25 Unknown History mcg (1,000 unit) capsule flaxseed oil 1,000 mg capsule 1,000 mg PO DAILY 07/09/25 Unknown History calcium carbonate (Calcium 600) 600 mg PO DAILY 07/09/25 Unknown History docusate sodium 100 mg capsule 200 mg PO DAILY 5 07/09/25 Unknown History naproxen sodium 220 mg tablet 220 mg PO BID 07/09/25 1 09/08/24 07/09/25 History Exam Height,Weight and Vital Signs: Height 4 ft 9 in Weight 63.3 kg Last Vital Signs Temp 97.6 F 07/10/25 07:41 Pulse 77 07/10/25 07:41 Resp 16 07/10/25 07:41 BP 137/63 07/10/25 07:41 Pulse Ox 93 07/10/25 07:41 O2 Del Method Room Air 07/10/25 07:41 Oxygen Flow Rate 2 07/09/25 11:28 Pertinent Lab Results Pertinent Lab Results: Laboratory Tests 07/09/25 07/10/25 12:07 05:41 WBC 9.1 11.6 H RBC 4.02 L 4.07 L Hgb 12.4 12.5 Hct 37.9 38.1 MCV 94.3 93.6 MCH 30.8 30.7 MCHC 32.7 32.8 RDW 14.1 14.0 Plt Count 283 291 MPV 9.8 10.0 Immature Gran % (Auto) 0.3 Neut % (Auto) 68.3 Lymph % (Auto) 20.0 [place] % (Auto) 8.6 Eos % (Auto) 2.3 Baso % (Auto) 0.5 Lymph # (Auto) 1.8 [place] # (Auto) 0.8 Eos # (Auto) 0.2 Baso # (Auto) 0.1 Abs Immat Gran (auto) 0.03 Absolute Neuts (auto) 6.2 Absolute Nucleated RBC 0.000 0.000 Nucleated RBC % (auto) 0.0 0.0 Sodium 142 142 Potassium 3.9 3.7 Chloride 108 106 Carbon Dioxide 25 26 Anion Gap 13 14 BUN 21 H 12 Creatinine 0.66 0.57 Estim Creat Clear Calc 50.7 58.2 Estimated GFR > 60 > 60 Random Glucose 117 H 93 Calcium 8.7 8.9 Magnesium 2.1 Total Bilirubin 0.3 AST 23 ALT 10 Alkaline Phosphatase 87 Total Protein 6.8 Albumin 4.1 Blood Type O Negative Antibody Screen NEGATIVE Narrative Narrative: EKG 07/09/25 Vent. Rate : 71 BPM Atrial Rate : 71 BPM P-R Int : 124 ms QRS Dur : 86 ms QT Int : 408 ms P-R-T Axes : -13 10 43 degrees QTcB Int : 443 ms Normal sinus rhythm Normal ECG When compared with ECG of 21-Ju Airway Mallampati Class: III TM Dist: >3cm Neck ROM: Limited Denture: Upper Loose/Missing/Broken Teeth: Yes and Lower (m) Heart: RRR Lungs: CTAB Assessment and Plan Final Anesthetic Review Family History of Problems with Anesthesia: No History of Problems with Anesthesia: No Documented by User: Vivi Corado, 07/10/25 13:30 PMFSH Past Medical History Medical History Lyme disease Muscle weakness Osteoporosis Family History Family history of problems with anesthesia: No Surgical History Surgical History History of cataract surgery History of Problems with Anesthesia: No Social History Social History Household Members: Family Housing: House Do you presently have visiting nurse or other home services: No Alcohol intake: never Patient Tobacco Use Status: Former Tobacco user Tobacco use type: Cigarette e-Cigarette/Vaping Use: Never Used Second Hand Smoke Exposure: Yes service: No Current occupational status: retired 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 Cognitive needs: Yes (cane) Hearing needs: No Vision needs: Yes (Reading glasses) Meds Allergies Allergy/AdvReac Type Severity Reaction Status Date / Time meperidine (Demerol) Allergy Unknown hives Verified 07/10/25 12:46 From DEMEROL Allergy Severe SKIN FEELS Uncoded 07/10/25 12:46 LIKE SOMETHING CRAWLING ALL OVER Home Medications ?Medication ?Instructions ?Recorded ?Confirmed ?Last Taken ?Type multivitamin (Multiple Vitamins 1 tab PO DAILY 1 07/09/25 Unknown History tablet) estradiol 0.01% (0.1 mg/gram) 1 g vaginal 2XW 07/11/22 07/09/25 Unknown History vaginal cream (Estrace) cholecalciferol (vitamin D3) 25 25 mcg PO DAILY 07/09/25 Unknown History mcg (1,000 unit) capsule flaxseed oil 1,000 mg capsule 1,000 mg PO DAILY 07/09/25 Unknown History calcium carbonate (Calcium 600) 600 mg PO DAILY 07/09/25 Unknown History docusate sodium 100 mg capsule 200 mg PO DAILY 5 07/09/25 Unknown History naproxen sodium 220 mg tablet 220 mg PO BID 07/09/25 1 09/08/24 07/09/25 History Exam Exam Date and Time: 07/10/25 1325 Airway Mallampati Class: III TM Dist: >3cm Neck ROM: Limited Loose/Missing/Broken Teeth: Yes (edentulous) Heart: [id number] Assessment and Plan Assessment Anesthesia Assessment: Anesthesia Plan Discussed and Chart Reviewed Final Anesthetic Review Family History of Problems with Anesthesia: No History of Problems with Anesthesia: No NPO: Yes ASA Class: II Final Preanesthetic Review: No Changes in Pt Med Stat, Meds/Allgs Chart Reviewed, Consent Obtained/Reviewed and Anes Risks/Benef Reviewed Patient Risk: Low Procedure Risk: Intermediate Anesthetic Plan Anesthetic Plan: GA and Agree w/ Assess. and Plan Disposition: Standard PACU
--- NOTE | 2025-07-10 16:32 | PM.OP ---
Brief Operative Note Date of Service: 07/10/25 Pre-op diagnosis: Left femoral shaft fracture Post-op diagnosis: same Procedure: Open reduction and internal fixation of left femur fracture with Left femur long gamma nail placement Implants: Gómez left long gamma nail measuring 320 mm in length by 11 mm in diameter with a 125 degree neck-shaft angle, standard set screw, lag screw measuring 85 mm in length, distal locking bolt measuring 40 mm in length Surgeon: Addison Mcginnis MD Anesthesia: GLMA Was an Java Programmer Analyst used for this Procedure?: No Estimated blood loss (mL): 100 Pathology: none sent Condition: stable Disposition: PACU
--- NOTE | 2025-07-10 16:33 | P.OP_ITS ---
Operative Note Operative Note Date of Service: 07/10/25 Narrative: After the patient was identified as Karuna Martel and her left hip was initialed by myself they were brought to the operating room where general anesthesia was induced by the anesthesiologist in routine fashion. The patient was given 2 g of IV Ancef for infection prophylaxis. The patient was then gently transferred from the hospital bed onto the fracture table. The patient's right lower extremity was placed into the well leg godoy. The patient's left lower extremity was placed in gentle in-line traction with their patella parallel to the floor. All bony prominences were well padded. C-arm AP and lateral radiographs were of the femoral shaft fracture site. A closed reduction was attempted. In spite of multiple attempts the fracture site could not be aligned via closed manipulation. Thus, an open reduction would be performed. The patient's left hip region and thigh were prepped and draped in sterile fashion. A formal time-out was completed. A #10 scalpel blade was used to make a 10 cm incision along the lateral aspect of the patient's thigh centered over the fracture site. The iliotibial band and vastus lateralis were split using electrocautery and blunt dissection. The fracture site was palpated. The fracture was reduced and held with a clamp. Adequate reduction was confirmed using C-arm AP and lateral radiographs. A #10 scalpel blade was used to make a 5 cm incision just proximal to the tip of the greater trochanter. A curved cannulated awl was introduced into the proximal femur in routine fashion. A ball-tipped guidewire was then placed through the cannula and into the femoral canal. The guidewire was passed down to the superior pole of the patella. The awl was removed. The guidewire measured 320 mm in length. Reaming was begun with a 9 mm reamer. Reaming was increased incrementally up to a size 13 reamer. The left long gamma nail measuring 13 mm in diameter by 320 mm in length was passed over the guidewire. Good fracture reduction and nail positioning were c onfirmed using C-arm AP and lateral radiographs. A 2 cm incision was then made where the lag screw trocar met the patient's lateral thigh. The subcutaneous tissues and fascia laci were split down to the lateral cortex of the femur using a hemostat. The lag screw trocar was passed down to the lateral cortex of the femur. A threaded guidewire was then placed into the inferior aspect of the femoral head on the AP x-ray and the center of the femoral head on the lateral x-ray. The guidewire measured 80 mm in length. Reaming was then performed over the guidewire to a depth of 80 mm. The lag screw measuring 80 mm in length was then placed over the guidewire. At this point I felt that the 80 mm lag screw was somewhat short. Thus, the 80 mm lag screw was removed and was replaced by an 85 mm lag screw. The guidewire was removed. The set screw was then placed into the proximal aspect of the nail and tightened fully. Traction was then released from the patient's left lower extremity and gentle compression was placed upon the patient's foot to help reduce the fracture as much as possible. Our attention was then directed to the distal aspect of the tejas. One distal locking bolt measuring 40 mm in length was placed into the dynamic screw hole from lateral to medial in routine fashion. Final AP and lateral radiographs showed good fracture reduction and hardware positioning. All 3 wounds were irrigated with copious amounts of normal saline solution. The distal locking bolt incision and lag screw incision were closed with 2-0 Vicryl and skin acacia. The incision at the fracture site was then irrigated with copious amounts of normal saline solution. The vastus lateralis and iliotibial band were closed with #1 vicryl [id number] interrupted suture. The wound was once again irrigated. Subcutaneous tissues were closed with 0 Vicryl and 2-0 Vicryl suture. The skin was closed with skin acacia. The proximal wound was once again irrigated. The fascia laci was closed with 0 Vicryl [id number] interrupted suture. The wound was once again irrigated. The subcutaneous tissues were closed with 2-0 Vicryl interrupted suture. The skin was closed with skin acacia. Dry sterile dressing was placed over all incisions. The patient was gently transferred from the fracture table onto their hospital bed. The patient was awoken and extubated in the operating room. The patient was transferred to the recovery room in stable condition.
[2025-07-11] VITALS (7 sets, daily range): BP systolic 101–121; BP diastolic 52–65; PULSE 79–97; RESP 16–19; TEMP 36.3–37.7; O2SAT 90–97
[2025-07-11 06:39] LABS: Hematocrit 30.8 % (37.0-47.0); Hemoglobin 10.2 g/dl (12.0-16.0); Mean Corpuscular HGB Conc 33.1 g/dl (31.0-35.0); Mean Corpuscular Hemoglobin 30.7 pg (27.0-33.0); Mean Corpuscular Volume 92.8 fL (80.0-98.0); NRBC Abs Auto 0.000 X10*3/uL (0.0-0.012); NRBC Pct Auto 0.0 /100WBC (0.0-0.2); Platelet Count 261 X10*3/uL (160-400); Red Blood Count 3.32 X10*6/uL (4.20-5.50); White Blood Count 9.9 X10*3/uL (4.8-10.8)
[2025-07-11 07:01] LABS: Anion Gap 9 (12-20); Blood Urea Nitrogen 16 mg/dL (9-16); Calcium 8.5 mg/dL (8.4-10.2); Carbon Dioxide 30 mmol/L (22-29); Chloride 104 mmol/L (96-108); Creatinine Clr Calc Pharmacy 49.5; Estimated Glomerular Filt Rate > 60; Potassium 4.4 mmol/L (3.3-5.1); Sodium 139 mmol/L (135-145)
--- NOTE | 2025-07-11 09:35 | P.PNIM_ITS ---
Subjective Subjective Date of Service: 07/11/25 Interval History: pain improved Physical Exam 2 Vital Signs: Vital Signs: Last Vital Signs Temp 98.4 F 07/11/25 08:00 Pulse 95 07/11/25 08:00 Resp 16 07/11/25 08:00 BP 111/65 07/11/25 08:00 Pulse Ox 94 07/11/25 08:00 O2 Del Method Room Air 07/11/25 08:00 O2 Flow Rate 3 07/10/25 19:03 Oxygen Flow Rate 2 07/09/25 11:28 BMI result Body Mass Index 30.2 Extrem: Other: Patient's left leg is noted to have a deformity in the proximal aspect of the left femur No erythema, ecchymosis, edema noted No lacerations, abrasions, open areas No evidence of infection Patient reports tenderness to palpation of the proximal aspect of the left femur Compartments soft, nontender Distal sensation intact Capillary refill brisk Objective Data Active Medications Acetaminophen (Acetaminophen 325 Mg Tablet) 650 mg PO Q6H PRN PRN Reason: Pain, Mild 1-3,fever,headache Last Admin: 07/11/25 07:36 Dose: 650 mg Documented By: BERNICE Aspirin (Aspirin 325 Mg Tablet) 325 mg PO BID [facility] Last Admin: 07/11/25 07:37 Dose: 325 mg Documented By: BERNICE Calcium Carbonate (Calcium Carbonate 750 Mg Tab.Chew) 750 mg PO Q4H PRN PRN Reason: Heartburn Calcium Carbonate (Calcium Carbonate 750 Mg Tab.Chew) 750 mg PO DAILY [facility] Last Admin: 07/11/25 07:37 Dose: 750 mg Documented By: BERNICE Docusate Sodium (Docusate Sodium 100 Mg Capsule) 200 mg PO DAILY [facility] Last Admin: 07/11/25 07:36 Dose: 200 mg Documented By: BERNICE Lactated Ringer's (Lr) 1,000 mls @ 80 mls/hr IVCONT .[id number] [facility] Last Admin: 07/10/25 21:25 Dose: 80 mls/hr Documented By: REED Cefazolin Sodium/Dextrose (Ancef) 2 gm in 50 mls @ 100 mls/hr IV Q8H [facility] Stop: 07/11/25 13:00 Last Infusion: 07/11/25 05:29 Dose: Infused Documented By: JONOGILLIAN Magnesium Hydroxide (Milk Of Magnesia 30 Ml Oral.Susp) 30 ml PO DAILY PRN PRN Reason: Constipation Melatonin (Melatonin 3 Mg Tablet) 6 mg PO BEDTIME PRN PRN Reason: Insomnia Morphine Sulfate (Morphine Sulfate 4 Mg/Ml Cartridge) 2 mg IVPUSH Q4H PRN; Protocol PRN Reason: Pain, Severe (Pain Scale 7-10) Last Admin: 07/10/25 10:26 Dose: 2 mg Documented By: JENNIE Multivitamins/Vitamin C (Multivitamin Tablet) 1 tab PO DAILY [facility] Last Admin: 07/11/25 07:37 Dose: 1 tab Documented By: BERNICE Naloxone HCl (Naloxone Hcl 0.4 Mg/Ml Vial) 0.04 mg IVPUSH Q5M PRN PRN Reason: Excessive sedation or RR < 8 Ondansetron HCl (Ondansetron Hcl 4 Mg/2 Ml Vial) 4 mg IVPUSH Q6H PRN PRN Reason: Nausea and Vomiting Last Admin: 07/09/25 17:05 Dose: 4 mg Documented By: JENNIE Sodium Chloride (0.9 % Sodium Chloride Flush 3 Ml Syringe) 3 ml IVFLUSH QSHIFT [facility] Last Admin: 07/11/25 07:37 Dose: Not Given Documented By: BERNICE Non-Admin Reason: IV Running Vitamin D (Cholecalciferol (Vitamin D3) 25 Mcg Tablet) 25 mcg PO DAILY [facility] Last Admin: 07/11/25 07:36 Dose: 25 mcg Documented By: BERNICE Labs 07/11/25 06:26 07/11/25 06:26 Labs: Laboratory Results - last 24 hr 07/11/25 06:26 MCV 92.8 MCH 30.7 MCHC 33.1 RDW 14.2 Plt Count 261 MPV 9.9 Absolute Nucleated RBC 0.000 Nucleated RBC % (auto) 0.0 Anion Gap 9 L Estim Creat Clear Calc 49.5 Estimated GFR > 60 Random Glucose 114 Calcium 8.5 Assessment and Plan (1) Osteoporosis: Status: Acute Plan 84F PMH osteoporosis presented with left leg pain, found to have femoral shaft fracture Proximal left femoral shaft fracture due to osteoporosis Pain control, pod 1, pt/ot Calcium, vitamin-D DVT prophylaxis- asa bid Full code reason for continued hospitalization: pt Quality Stroke Does the patient have a stroke diagnosis?: No VTE Prior VTE?: No VTE Risk Level:: Medical - moderate - high VTE Device Contraindication: N/A - Device Ordered VTE Drug Contraindication: Treatment Not Indicated
[2025-07-11] MEDS: Lactated Ringers 1,000 ML 80 ML IVCONT (09:59)
[2025-07-11 11:54] LABS: Glucose, Whole Blood 104 mg/dL (60-115)
--- NOTE | 2025-07-11 15:04 | PM.PNORT ---
Subjective Subjective Date of Service: 07/11/25 Interval history: pod 1 s/p Lt femur IMN resting in recliner no overnight events states she has minimal pain Physical Exam Vital Signs: Vital Signs: Last Vital Signs Temp 97.4 F 07/11/25 12:00 Pulse 89 07/11/25 12:00 Resp 16 07/11/25 12:00 BP 101/56 L 07/11/25 12:00 Pulse Ox 93 07/11/25 12:00 O2 Del Method Room Air 07/11/25 12:00 O2 Flow Rate 3 07/10/25 19:03 Oxygen Flow Rate 2 07/09/25 11:28 BMI result Body Mass Index 30.2 Const: General: cooperative, healthy appearing, comfortable and no acute distress Extrem: Other: Left leg incision clean dry and intact She is able to plantar and dorsiflex the foot and ankle calf supple non tender nvi Procedures Date of Service Date of Service: 07/11/25 Progress Note: A&P Assessment and plan (1) Closed left femoral fracture: Status: Acute (2) Fracture of femoral shaft, left, closed: Status: Acute Plan TTWB LLE wtih a walker ASA for dvt ppc dispo pending PT eval and rehab placement Time Spent With Patient Time: Total time managing care of this patient today ____ minutes. Quality Stroke Does the patient have a stroke diagnosis?: No VTE Prior VTE?: No VTE Risk Level:: Medical - moderate - high VTE Device Contraindication: N/A - Device Ordered VTE Drug Contraindication: Treatment Not Indicated
[2025-07-12 03:40] VITALS: BP 117/58; PULSE 84; RESP 16; TEMP 37.2; O2SAT 95
[2025-07-12 06:13] LABS: Hematocrit 29.4 % (37.0-47.0); Hemoglobin 9.6 g/dl (12.0-16.0); Mean Corpuscular HGB Conc 32.7 g/dl (31.0-35.0); Mean Corpuscular Hemoglobin 30.6 pg (27.0-33.0); Mean Corpuscular Volume 93.6 fL (80.0-98.0); NRBC Abs Auto 0.000 X10*3/uL (0.0-0.012); NRBC Pct Auto 0.0 /100WBC (0.0-0.2); Platelet Count 231 X10*3/uL (160-400); Red Blood Count 3.14 X10*6/uL (4.20-5.50); White Blood Count 9.2 X10*3/uL (4.8-10.8)
[2025-07-12 06:30] LABS: Anion Gap 12 (12-20); Blood Urea Nitrogen 21 mg/dL (9-16); Calcium 8.4 mg/dL (8.4-10.2); Carbon Dioxide 28 mmol/L (22-29); Chloride 107 mmol/L (96-108); Creatinine Clr Calc Pharmacy 54.4; Estimated Glomerular Filt Rate > 60; Potassium 3.7 mmol/L (3.3-5.1); Sodium 143 mmol/L (135-145)
--- NOTE | 2025-07-12 07:45 | HO.POSTANES ---
Post Anesthesia Evaluation Post Anesthesia Evaluation Date of Service: 07/11/25 Vital Signs: Vital Signs Temp Pulse Resp BP Pulse Ox O2 Del Method O2 Flow Rate 07/12/25 03:40 98.9 F 84 16 117/58 L 95 Room Air 07/11/25 23:46 98.5 F 90 16 116/56 L 97 Nasal Cannula 2 07/11/25 20:00 99.8 F 97 19 121/55 L 90 L Room Air Anesthesia: General LMA Mental Status: Awake Pain Control: Satisfactory Nausea/Vomiting: None Hydration: Adequate Anesthesia-Related Issues: No Anes. Related Issues
[2025-07-12 08:00] VITALS: BP 120/58; PULSE 89; RESP 16; TEMP 36.7; O2SAT 92
[2025-07-12] MEDS: 0.9 % Sodium Chloride Flush 3 ML SYRINGE IVFLUSH ×2 (08:05→20:57)
--- NOTE | 2025-07-12 09:21 | HO.PM.IMPN ---
Subjective Subjective Date of Service: 07/12/25 Interval History: pain improved Physical Exam Vital Signs: Vital Signs: Last Vital Signs Temp 98.1 F 07/12/25 08:00 Pulse 89 07/12/25 08:00 Resp 16 07/12/25 08:00 BP 120/58 L 07/12/25 08:00 Pulse Ox 92 07/12/25 08:00 O2 Del Method Room Air 07/12/25 08:00 O2 Flow Rate 2 07/11/25 23:46 Oxygen Flow Rate 2 07/09/25 11:28 BMI result Body Mass Index 30.2 Const: General: cooperative, healthy appearing, comfortable and no acute distress Extrem: Other: Left leg incision clean dry and intact She is able to plantar and dorsiflex the foot and ankle calf supple non tender nvi Objective Data Active Medications Acetaminophen (Acetaminophen 325 Mg Tablet) 650 mg PO Q6H PRN PRN Reason: Pain, Mild 1-3,fever,headache Last Admin: 07/12/25 08:02 Dose: 650 mg Documented By: BERNICE Aspirin (Aspirin 325 Mg Tablet) 325 mg PO BID [facility] Last Admin: 07/12/25 08:02 Dose: 325 mg Documented By: BERNICE Calcium Carbonate (Calcium Carbonate 750 Mg Tab.Chew) 750 mg PO Q4H PRN PRN Reason: Heartburn Calcium Carbonate (Calcium Carbonate 750 Mg Tab.Chew) 750 mg PO DAILY [facility] Last Admin: 07/12/25 08:02 Dose: 750 mg Documented By: BERNICE Docusate Sodium (Docusate Sodium 100 Mg Capsule) 200 mg PO DAILY [facility] Last Admin: 07/12/25 08:02 Dose: 200 mg Documented By: BERNICE Magnesium Hydroxide (Milk Of Magnesia 30 Ml Oral.Susp) 30 ml PO DAILY PRN PRN Reason: Constipation Melatonin (Melatonin 3 Mg Tablet) 6 mg PO BEDTIME PRN PRN Reason: Insomnia Morphine Sulfate (Morphine Sulfate 4 Mg/Ml Cartridge) 2 mg IVPUSH Q4H PRN; Protocol PRN Reason: Pain, Severe (Pain Scale 7-10) Last Admin: 07/10/25 10:26 Dose: 2 mg Documented By: JENNIE Multivitamins/Vitamin C (Multivitamin Tablet) 1 tab PO DAILY [facility] Last Admin: 07/12/25 08:02 Dose: 1 tab Documented By: BERNICE Naloxone HCl (Naloxone Hcl 0.4 Mg/Ml Vial) 0.04 mg IVPUSH Q5M PRN PRN Reason: Excessive sedation or RR < 8 Ondansetron HCl (Ondansetron Hcl 4 Mg/2 Ml Vial) 4 mg IVPUSH Q6H PRN PRN Reason: Nausea and Vomiting Last Admin: 07/09/25 17:05 Dose: 4 mg Documented By: JENNIE Sodium Chloride (0.9 % Sodium Chloride Flush 3 Ml Syringe) 3 ml IVFLUSH QSHIFT [facility] Last Admin: 07/12/25 08:05 Dose: 3 ml Documented By: BERNICE Vitamin D (Cholecalciferol (Vitamin D3) 25 Mcg Tablet) 25 mcg PO DAILY [facility] Last Admin: 07/12/25 08:02 Dose: 25 mcg Documented By: BERNICE Labs 07/12/25 05:47 07/12/25 05:47 Labs: Laboratory Results - last 24 hr 07/11/25 07/12/25 11:35 05:47 MCV 93.6 MCH 30.6 MCHC 32.7 RDW 14.6 Plt Count 231 MPV 10.1 Absolute Nucleated RBC 0.000 Nucleated RBC % (auto) 0.0 Anion Gap 12 Estim Creat Clear Calc 54.4 Estimated GFR > 60 POC Glucose 104 Random Glucose 113 Calcium 8.4 Assessment and Plan (1) Osteoporosis: Status: Acute Plan 84F PMH osteoporosis presented with left leg pain, found to have femoral shaft fracture Proximal left femoral shaft fracture due to osteoporosis Pain control, pod 2, pt/ot - recommending acute rehab Calcium, vitamin-D acute drop in hgb combination of inflammation and acute blood loss related to fracture DVT prophylaxis- asa bid Full code reason for continued hospitalization: dispo planning Quality Stroke Does the patient have a stroke diagnosis?: No VTE Prior VTE?: No VTE Risk Level:: Medical - moderate - high VTE Device Contraindication: N/A - Device Ordered VTE Drug Contraindication: Treatment Not Indicated
--- NOTE | 2025-07-12 09:26 | PM.DS ---
DS: Providers Provider Date of Service: 07/12/25 Date of admission: 07/09/25 13:02 Date of discharge: 07/12/25 Primary care physician: Unknown Physician Consults: 07/09/25 12:56 Consult to Orthopedics Routine Consulting Provider: [facility] Reason for consultation: left femur fracture Has provider been notified: No 07/09/25 18:24 Consult to Wound Care Routine Consulting Provider: [facility] Wound Care Management Reason for consultation: skin breakdown left ankle from traction device DS: Diagnosis Discharge Diagnosis (1) Osteoporosis: Status: Acute DS: Summary Hospital Course Hospital Course: from initial hpi: 84-year-old female with history of osteoporosis who presents to the emergency department with left leg pain. She was in her usual state of health when she sat down on the toilet earlier today. Upon sitting down she heard a snap in her left leg and she was unable to stand up. Her daughter called 911. EMS found her to have closed femur deformity and placed her in traction splint. In the emergency department imaging confirmed fracture of the proximal diaphysis of the left femur. The orthopedic team requested admission to the medical service. She has history of osteoporosis and was previously treated with alendronate but she self-discontinued due to concerns of muscle wasting as per previous PCP note. hospital course: Patient was admitted for proximal left femoral shaft fracture due to osteoporosis. Underwent left femoral IMN. Perioperative period was unremarkable. She was seen by physical therapy recommended acute rehab to which patient will be discharged. She was started on aspirin b.i.d. for DVT prophylaxis. Time Attestation Discharge Coordination Time (in mins): 33 Quality: Safe Use of Opioids Does Pt have an Active Cancer Diagnosis on the Problem List?: No Quality: Stroke Does the patient have a stroke diagnosis?: No Physical Exam Vital Signs: Vital Signs: Last Vital Signs Temp 98.1 F 07/12/25 08:00 Pulse 89 07/12/25 08:00 Resp 16 07/12/25 08:00 BP 120/58 L 07/12/25 08:00 Pulse Ox 92 07/12/25 08:00 O2 Del Method Room Air 07/12/25 08:00 O2 Flow Rate 2 07/11/25 23:46 Oxygen Flow Rate 2 07/09/25 11:28 BMI result Body Mass Index 30.2 Const: General: cooperative, healthy appearing, comfortable and no acute distress Extrem: Other: Left leg incision clean dry and intact She is able to plantar and dorsiflex the foot and ankle calf supple non tender nvi DS: Data Data Completed and Pending Labs on day of discharge: Laboratory Results - last 24 hr 07/11/25 07/12/25 11:35 05:47 WBC 9.2 RBC 3.14 L Hgb 9.6 L Hct 29.4 L MCV 93.6 MCH 30.6 MCHC 32.7 RDW 14.6 Plt Count 231 MPV 10.1 Absolute Nucleated RBC 0.000 Nucleated RBC % (auto) 0.0 Sodium 143 Potassium 3.7 Chloride 107 Carbon Dioxide 28 Anion Gap 12 BUN 21 H Creatinine 0.61 Estim Creat Clear Calc 54.4 Estimated GFR > 60 POC Glucose 104 Random Glucose 113 Calcium 8.4 Discharge Plan Discharge Anticipated Discharge Date/Time: 07/12/25 09:23 Patient Disposition: Xfer Acute Care Hospital Discharge Diagnosis: left femoral shaft fracture Referrals: Jenn Livingston PA-C [Physician [place], Orthopedics] - 1 Week Physician,Jaimie J [Primary Care Provider, Medical] - 1 Week Discharge Medications: New aspirin 325 mg Tablet 325 mg PO BID 28 Days Qty: 56 0RF Continued acetaminophen [Tylenol Extra Strength] 500 mg tablet 500 mg PO Q6H PRN (Reason: fever) Qty: 30 3RF docusate sodium 100 mg Capsule 200 mg PO DAILY calcium carbonate [Calcium 600] 600 mg calcium (1,500 mg) Tablet 600 mg PO DAILY naproxen sodium 220 mg Tablet 220 mg PO BID estradiol [Estrace] 0.01 % (0.1 mg/gram) cream 1 g vaginal 2XW multivitamin [Multiple Vitamins] Tablet 1 tab PO DAILY flaxseed oil 1,000 mg capsule 1,000 mg PO DAILY Rx Instructions: administer with a meal cholecalciferol (vitamin D3) 25 mcg (1,000 unit) capsule 25 mcg PO DAILY Discharge Orders: Discharge Order (Routine); Ordered 07/12/25 Ordered By: Radu Crooks Activity on Discharge: TTWB LLE wtih a walker Stand Alone Forms: Patient Portal Discharge page Print Language: Albanian Care Plan Goals: recovery Health Concerns: left femoral shaft fracture Plan of Treatment: TTWB LLE with a walker, PT/OT, follow up with ortho ASA bid for DVT prophylaxis Assessment: see above
--- NOTE | 2025-07-12 11:04 | PM.EVENT ---
Event Note Date of Service: 07/12/25 Event Note: POD 2 s/p Lt hip IMN no overnight events spoke with RN , Lluvia Rucker who states patient is doing very well with no concerns continue TTWB w walker Time Spent With Patient Time: Total time managing care of this patient today ____ minutes.
[2025-07-12 11:37] VITALS: BP 108/53; PULSE 89; RESP 16; TEMP 36.3; O2SAT 92
--- NOTE | 2025-07-12 15:51 | MHC.CM.PN ---
DP: [facility] WILL START INSURANCE AUTH 07/13 ONCE UPDATED P.T./O.T. NOTES ARE OBTAINED. CM WILL CONTINUE TO FOLLOW.
[2025-07-12 16:00] VITALS: BP 163/73; PULSE 59; RESP 19; TEMP 36; O2SAT 95
[2025-07-12 20:00] VITALS: BP 132/66; PULSE 102; RESP 19; TEMP 37.1; O2SAT 94
[2025-07-13] VITALS: BP 123/60; PULSE 93; RESP 14; TEMP 36.2; O2SAT 93
[2025-07-13 03:22] VITALS: BP 111/58; PULSE 92; RESP 18; TEMP 36.6; O2SAT 92
[2025-07-13] MEDS: 0.9 % Sodium Chloride Flush 3 ML SYRINGE IVFLUSH (07:27)
[2025-07-13 08:00] VITALS: BP 136/62; PULSE 89; RESP 18; TEMP 36.4; O2SAT 94
--- NOTE | 2025-07-13 08:35 | PM.PNORT ---
Subjective Subjective Date of Service: 07/13/25 Interval history: pod 3 s/p Lt femur IMN resting in bed no overnight events states she has minimal pain Physical Exam Vital Signs: Vital Signs: Last Vital Signs Temp 97.6 F 07/13/25 08:00 Pulse 89 07/13/25 08:00 Resp 18 07/13/25 08:00 BP 136/62 07/13/25 08:00 Pulse Ox 94 07/13/25 08:00 O2 Del Method Room Air 07/13/25 08:00 O2 Flow Rate 2 07/11/25 23:46 Oxygen Flow Rate 2 07/09/25 11:28 BMI result Body Mass Index 30.2 Const: General: cooperative, healthy appearing, comfortable and no acute distress Extrem: Other: Left leg incision clean dry and intact She is able to plantar and dorsiflex the foot and ankle calf supple non tender nvi Procedures Date of Service Date of Service: 07/13/25 Progress Note: A&P Assessment and plan (1) Closed left femoral fracture: Status: Acute (2) Fracture of femoral shaft, left, closed: Status: Acute Plan TTWB LLE wtih a walker ASA for dvt ppc dispo pending PT eval and rehab placement Time Spent With Patient Time: Total time managing care of this patient today ____ minutes. Quality Stroke Does the patient have a stroke diagnosis?: No VTE Prior VTE?: No VTE Risk Level:: Medical - moderate - high VTE Device Contraindication: N/A - Device Ordered VTE Drug Contraindication: Treatment Not Indicated
[2025-07-13] MEDS: Milk of Magnesia 30 ML ORAL.SUSP PO (08:48)
--- NOTE | 2025-07-13 11:35 | MHC.CM.PN ---
Auth received for acute rehab at [facility]. Medically cleared. Transport booked for 2pm. Patient, RN, and MD aware. IMM delivered.
[2025-07-13 11:38] VITALS: BP 125/65; PULSE 92; RESP 18; TEMP 36.4; O2SAT 98
--- NOTE | 2025-07-13 13:35 | P.DS_ITS ---
DS: Providers Provider Date of Service: 07/13/25 Date of admission: 07/09/25 13:02 Date of discharge: 07/13/25 Primary care physician: Unknown Physician Consults: 07/09/25 12:56 Consult to Orthopedics Routine Consulting [place] [facility] Reason for consultation: left femur fracture Has provider been notified: No 07/09/25 18:24 Consult to Wound Care Routine Consulting Provider: [facility] Reason for consultation: skin breakdown left ankle from traction device DS: Diagnosis Discharge Diagnosis (1) Closed left femoral fracture: Status: Acute (2) Fracture of femoral shaft, left, closed: Status: Acute DS: Summary Hospital Course Hospital Course: from initial hpi: 84-year-old female with history of osteoporosis who presents to the emergency department with left leg pain. She was in her usual state of health when she sat down on the toilet earlier today. Upon sitting down she heard a snap in her left leg and she was unable to stand up. Her daughter called 911. EMS found her to have closed femur deformity and placed her in traction splint. In the emergency department imaging confirmed fracture of the proximal diaphysis of the left femur. The orthopedic team requested admission to the medical service. She has history of osteoporosis and was previously treated with alendronate but she self-discontinued due to concerns of muscle wasting as per previous PCP note. hospital course: Patient was admitted for proximal left femoral shaft fracture due to osteoporosis. Underwent left femoral IMN. Perioperative period was unremarkable. She was seen by physical therapy recommended acute rehab to which patient will be discharged. She was started on aspirin b.i.d. for DVT prophyl axis. Time Attestation Discharge Coordination Time (in mins): 35 Quality: Safe Use of Opioids Does Pt have an Active Cancer Diagnosis on the Problem List?: No Quality: Stroke Does the patient have a stroke diagnosis?: No Physical Exam Vital Signs: Vital Signs: Last Vital Signs Temp 97.6 F 07/13/25 11:38 Pulse 92 07/13/25 11:38 Resp 18 07/13/25 11:38 BP 125/65 07/13/25 11:38 Pulse Ox 98 07/13/25 11:38 O2 Del Method Room Air 07/13/25 11:38 O2 Flow Rate 2 07/11/25 23:46 Oxygen Flow Rate 2 07/09/25 11:28 BMI result Body Mass Index 30.2 Const: Other: Awake alert no acute distress Resp: Other: Clear to auscultation bilaterally no rales rhonchi or wheezes Cardio: Other: No S4; positive S1-S2; no S3 murmurs rubs or gallops GI: Other: Soft nontender nondistended normoactive bowel sounds Extrem: Other: No edema bilaterally Discharge Plan Discharge Anticipated Discharge Date/Time: 07/12/25 09:23 Patient Disposition: Xfer Inpatient Rehab Fac Discharge Diagnosis: left femoral shaft fracture Referrals: [facility] [Outside] - 1 Week Beatriz De La Rosa PA-C [Physician [facility], Orthopedics] - 2 Weeks Referral Note: 07/24/25 09:45 [facility] [place] Beatriz De La Rosa PA-C Physician,Jaimie J [Primary Care Provider, Medical] - 1 Week Discharge Medications: New aspirin 325 mg Tablet 325 mg PO BID 28 Days Qty: 56 0RF Continued acetaminophen [Tylenol Extra Strength] 500 mg tablet 500 mg PO Q6H PRN (Reason: fever) Qty: 30 3RF docusate sodium 100 mg Capsule 200 mg PO DAILY calcium carbonate [Calcium 600] 600 mg calcium (1,500 mg) Tablet 600 mg PO DAILY naproxen sodium 220 mg Tablet 220 mg PO BID estradiol [Estrace] 0.01 % (0.1 mg/gram) cream 1 g vaginal 2XW multivitamin [Multiple Vitamins] Tablet 1 tab PO DAILY flaxseed oil 1,000 mg capsule 1,000 mg PO DAILY Rx Instructions: administer with a meal cholecalciferol (vitamin D3) 25 mcg (1,000 unit) capsule 25 mcg PO DAILY Discharge Orders: Discharge Order (Routine); Ordered 07/13/25 Ordered By: Jcarlos Hope Diet: Advance to usual diet Activity on Discharge: TTWB LLE wtih a walker Stand Alone Forms: Patient Portal Discharge page Print Language: Afghan Care Plan Goals: recovery Health Concerns: left femoral shaft fracture Plan of Treatment: TTWB LLE with a walker, PT/OT, follow up with ortho ASA bid for DVT prophylaxis Assessment: see above
[2025-07-13 14:40] VITALS: BP 121/64; PULSE 88; RESP 18; TEMP 36.7; O2SAT 96
== END 2025-07-13 14:45 | DRG 481 ==
LOC: HO.ED 13:00 → HO.EDOVER 13:02 → HO.S3 14:48
PROVIDERS: Internal Medicine; Orthopaedic Surgery; Physician Assistant Medical; Admitting Provider Physician Assistant Medical; Emergency Provider Emergency Medicine; PCP Internal Medicine; Visit Provider Hospitalist
PROC: 0QS906Z Reposition Left Femoral Shaft with Intramedullary Internal Fixation Device, Open Approach (ICD-10-PCS; principal; 2025-07-10 13:30)
DX: M80.052A Age-related osteoporosis with current pathological fracture, left femur, initial encounter for fracture (principal); D62 Acute posthemorrhagic anemia; Z87.891 Personal history of nicotine dependence; Z79.899 Other long term (current) drug therapy
CPT/HCPCS: 36415; 72170; 73552; 73590; 80048; 80053; 82947; 83735; 85025; 85027; 86850; 86900; 86901; 93005; 97162; 97166; 97530; 99285; C1713; J0131; J0690; J0737; J1100; J1171; J2003; J2270; J2405; J2704; J3010; J7120

== ENCOUNTER → 2025-07-09 11:34 | Outpatient (BNV) | payer MEDICARE, SELFPAY | PROVIDERS: Admitting Provider Physician Assistant Medical; Emergency Provider Emergency Medicine; Visit Provider Internal Medicine | DX: Z13.6 Encounter for screening for cardiovascular disorders (principal) | CPT/HCPCS: 93010 ==

== ENCOUNTER → 2025-07-09 11:34 | Outpatient (BNV) | payer MEDICARE, SELFPAY | PROVIDERS: Emergency Provider Emergency Medicine; Visit Provider Radiology Diagnostic Radiology | DX: S72.392A Other fracture of shaft of left femur, initial encounter for closed fracture (principal); Z03.89 Encounter for observation for other suspected diseases and conditions ruled out; M85.862 Other specified disorders of bone density and structure, left lower leg | CPT/HCPCS: 72170; 73552; 73590 ==

== ENCOUNTER → 2025-07-09 13:02 | Outpatient (BNV) | payer MEDICARE, SELFPAY | PROVIDERS: Admitting Provider Physician Assistant Medical; Emergency Provider Emergency Medicine; Visit Provider Physician Assistant Medical | DX: S72.92XA Unspecified fracture of left femur, initial encounter for closed fracture (principal) | CPT/HCPCS: 99223; 99232 ==

== ENCOUNTER → 2025-07-09 13:02 | Outpatient (BNV) | payer MEDICARE, SELFPAY | PROVIDERS: Admitting Provider Physician Assistant Medical; Emergency Provider Emergency Medicine | DX: S72.302A Unspecified fracture of shaft of left femur, initial encounter for closed fracture (principal) | CPT/HCPCS: 99223; 99499 ==

== ENCOUNTER 2025-07-17 23:20 | Inpatient (IN) | payer MEDICARE, SELFPAY ==
--- NOTE | ~2025-07-17 | FL_ITS ---
EXAMINATION: FLUOROSCOPY GUIDANCE FOR NEEDLE PLACEMENT CLINICAL INFORMATION: im nail COMPARISON: Previous x-ray July 17, 2025 TECHNIQUE: Fluoroscopy guidance provided for ORIF right femur fracture FINDINGS: 6 intraoperative fluoroscopic images demonstrate placement of an intramedullary tejas, 2 proximal screws and 2 distal screws transfixing the right femoral shaft fracture. There is improved alignment. FLUOROSCOPY TIME: 4 minutes 55 seconds DOSE AREA PRODUCT: 54 mGy FL/FL guidance in OR IMPRESSION: Fluoroscopy guidance for ORIF of right femoral shaft fracture. Electronically signed by: Joselin Plaza MD 07/20/2025 11:18 AM KEV
--- NOTE | ~2025-07-17 | XR_ITS ---
CLINICAL HISTORY: trauma 2 view right femur Comparison: None provided Findings: Acute fracture of the right femur includes minimal diaphysis with overriding and 1 shaft posterior displacement of the major fracture fragments. Major fracture fragments appear sharp. Severe osteoarthritis of the right hip without dislocation. Capsular calcification noted. Enthesopathy of the right greater trochanter. Low bone mineralization suggested. Severe osteoarthritis of the right knee with small effusion present by radiographs. Superficial opacities noted, including metal over the partially imaged pelvis. IMPRESSION: 1. Acute right femur mid diaphysis fracture. 2. Severe osteoarthritis of the right hip and right knee. This document has been electronically signed by: Davon Cueva MD on 07/18/2025 00:36:35
--- NOTE | ~2025-07-17 | XR_ITS ---
CLINICAL HISTORY: trauma 1 view chest x-ray Comparison: None provided Findings: Mild bibasilar atelectasis and/or scarring, left worse than right. No acute or lobar consolidation. Mild emphysematous changes. No pneumothorax or pleural effusion in the supine image. Cardiomegaly and tortuosity thoracic aorta accentuated by AP technique. 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 Spine is mostly obscured. IMPRESSION: Mild left basilar atelectasis This document has been electronically signed by: Davon Cueva MD on 07/18/2025 00:33:04
--- NOTE | ~2025-07-17 | US_ITS ---
CLINICAL HISTORY: LLE swelling, rule out DVT Venous duplex ultrasound left lower extremity Comparison: None provided Findings: There is focal echogenic eccentric chronic appearing thrombus within the proximal left femoral vein that is nonocclusive. The deep veins of the left upper extremity, where visible, are otherwise fully compressible without visible thrombus. Popliteal vein was not well evaluated as the patient was unable to move due to the broken femur. The peroneal vein was not visualized. No popliteal cyst. IMPRESSION: 1. Focal, nonocclusive eccentric chronic appearing deep vein thrombosis in the proximal left femoral vein. No findings of acute deep vein thrombosis. This document has been electronically signed by: Sarah Cunha MD on 07/18/2025 09:00:04
[2025-07-17 23:24] VITALS: BP 137/69; BP 140/80; PULSE 85; PULSE 88; RESP 18; TEMP 36.6; O2SAT 97; O2SAT 99; BMI 26.8
--- NOTE | 2025-07-17 23:24 | PC.NURSE ---
Report from Oren at [facility]- PT being treated at [facility] for L femur fracture with surgical repair. Dressing in placed and will remain until follow up appointment. Today during a transfers, pt fell back into bed. PT reported Right leg numbness and same feeling with L Femur. Nursing notes r side deformity and swelling. Pt a/ox4, continent,. Touch down weight bearing and modified assistance. There was a plan for BL ultrasound to rule out DVT d/t swelling noted in both legs. PT on daily aspirin and PRN 650mg Tylenol for pain
--- NOTE | 2025-07-17 23:43 | ED.GENADULT ---
HPI - General Adult General Chief complaint: Fall Stated complaint: leg injury Time Seen by Provider: 07/17/25 23:23 Source: patient, EMS, RN notes reviewed and old records reviewed Mode of arrival: EMS Limitations: physical limitation History of Present Illness ED Provider: Malclom HPI narrative: 84-year-old female with past medical history significant for osteopenia and recent left femur fracture presents for evaluation of right leg pain. The patient was transferring from her wheelchair to her bed. She felt her leg give out and she nearly fell. Her aid caught her before she fell, but the patient reports feeling a pop in her right leg pain She feels a tightness in her right mid thigh and reports that it feels similar to when she was here last week for a femur fracture She is not currently anticoagulated She was given fentanyl via EMS and currently has minimal pain Related Data Home Medications ?Medication ?Instructions ?Recorded ?Confirmed multivitamin (Multiple Vitamins 1 tab PO DAILY 03/30/21 07/09/25 tablet) estradiol 0.01% (0.1 mg/gram) 1 g vaginal 2XW 07/11/22 07/09/25 vaginal cream (Estrace) cholecalciferol (vitamin D3) 25 25 mcg PO DAILY 05/05/25 07/09/25 mcg (1,000 unit) capsule flaxseed oil 1,000 mg capsule 1,000 mg PO DAILY 05/05/25 07/09/25 calcium carbonate (Calcium 600) 600 mg PO DAILY 07/09/25 07/09/25 docusate sodium 100 mg capsule 200 mg PO DAILY 07/09/25 07/09/25 naproxen sodium 220 mg tablet 220 mg PO BID 07/09/25 07/09/25 Previous Rx's ?Medication ?Instructions ?Recorded acetaminophen 500 mg tablet 500 mg PO Q6H PRN fever #30 tabs 05/22/25 (Tylenol Extra Strength) aspirin 325 mg tablet 325 mg PO BID 28 days #56 tabs 07/12/25 Allergies Allergy/AdvReac Type Severity Reaction Status Date / Time meperidine (Demerol) Allergy Unknown hives Verified 07/17/25 23:26 From DEMEROL Allergy Severe SKIN FEELS Uncoded 07/17/25 23:26 LIKE SOMETHING CRAWLING ALL OVER Review of Systems Constitutional: Constitutional: Denies body ache(s), Denies chills, Denies fever(s) and Denies headache(s) Eyes: Eyes: Denies blurry vision ENT: Denies headache(s) Cardiovascular: Cardiovascular: Denies chest pain and Denies dyspnea on exertion Respiratory: Respiratory: Denies cough and Denies dyspnea on exertion Gastrointestinal: Gastrointestinal: Denies abdominal pain Musculoskeletal: Musculoskeletal: Reports arthralgias, Reports joint swelling, Reports limited range of motion and Denies radiating pain into limb Integumentary/Breasts: Skin/Breast: Denies erythema and Denies wounds Neurologic: Denies headache(s) [facility] Past Medical History Medical History (Updated 07/18/25 @ 00:38 by Aaron Fowler) Lyme disease Muscle weakness Osteoporosis Surgical History History of cataract surgery Social History Social History Household Members: Family Housing: House Do you presently have visiting nurse or other home services: No Alcohol intake: never Patient Tobacco Use Status: Former Tobacco user Tobacco use type: Cigarette Smoked in Last 30 Days: No e-Cigarette/Vaping Use: Never Used Second Hand Smoke Exposure: Yes Advance Directives: Yes Advance Directives Information Provided: Yes Advance Directives on File: No service: No Current occupational status: retired 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 Cognitive needs: Yes (cane) Hearing needs: No Vision needs: Yes (Reading glasses) Physical Exam ED Vital Signs: Vital Signs - 24 hr 07/17/25 23:24 Temperature 97.8 F Pulse Rate 85 Respiratory Rate 18 Blood Pressure 137/69 Pulse Oximetry 97 Oxygen Delivery Method Room Air BMI result Body Mass Index 26.8 Const General: healthy appearing, comfortable, no acute distress, alert and awake Nutritional Appearance: well nourished Orientation/consciousness: patient oriented x3 HENMT Head: Yes normocephalic and Yes atraumatic Eyes Eyelids: Yes eyelids normal Conjunctivae: conjunctivae normal Sclerae: sclerae normal Corneas: corneas normal Pupils: Equal, round and reactive pupils present EOM: EOMs intact bilaterally Neck Neck: Yes full ROM Resp Effort & Inspection: normal respiratory effort, able to speak in complete sentences and not labored Cardio Other: Dorsalis pedis pulses 2+ and equal bilaterally GI Inspection: No distended Palpation (GI): Soft to palpation, not firm, nontender, no guarding and not rigid Skin General skin exam: elasticity normal Neuro General: patient oriented x3 Cranial nerves: Yes Equal, round and reactive pupils present and Yes Bilaterally intact EOM present Cognition (Neuro): normal cognition Extrem Other: There is some shortening to the right lower extremity. There is some edema over the right mid thigh with tenderness in his area. The patient has limited range of motion of the hip and right knee. Medical Decision Making Medical Decision Making MDM Narrative: 84-year-old female presents for evaluation of right leg pain. She stumbled but did not follow up with the ground, she felt the pop in her right mid thigh similar to her femur fracture from 8 days ago. On exam her right lower extremity is shortened when compared to the left. X-ray confirms a spiral fracture of the right mid femur. I discussed with orthopedics, Beatriz Carlisle who recommends NPO status and admitted the patient to the medical service for anticipated surgical intervention. There was no evidence of compartment syndrome currently. Differential Diagnosis Differential Diagnoses: The differential diagnosis associated with the presentation includes Femur fracture Hip fracture Dislocation Contusion Admission/Observation Consideration of admission/observation: Escalation of care including admission/observation considered Consult Healthcare Provider Management of the patient was discussed with: Hospitalist and Turf And Grounds Supervisor Lab Data 07/18/25 00:41 07/18/25 00:41 Independent Interpretation I performed an independent interpretation of an: Plain X-Ray (Displaced spiral fracture of the mid shaft of the right femur) Radiology Impression Discussion of test interpretation with radiology: I have reviewed the radiologist's reading. Radiologist Impression: Findings: Acute fracture of the right femur includes minimal diaphysis with overriding and 1 shaft posterior displacement of the major fracture fragments. Major fracture fragments appear sharp. Severe osteoarthritis of the right hip without dislocation. Capsular calcification noted. Enthesopathy of the right greater trochanter. Low bone mineralization suggested. Severe osteoarthritis of the right knee with small effusion present by radiographs. Superficial opacities noted, including metal over the partially imaged pelvis. IMPRESSION: 1. Acute right femur mid diaphysis fracture. 2. Severe osteoarthritis of the right hip and right knee. This document has been electronically signed by: Davon Cueva MD on 07/18/2025 00:36:35 Prescription Management I considered prescription management with: Pain Medication Discharge Plan Discharge Clinical Impression: Fracture of right femur Patient Disposition: Admitted As Inpatient Print Language: Israeli
--- NOTE | 2025-07-18 00:06 | ECG_ITS ---
Test Reason : WEAKNESS Blood Pressure : */* mmHG Vent. Rate : 79 BPM Atrial Rate : 79 BPM P-R Int : 122 ms QRS Dur : 82 ms QT Int : 390 ms P-R-T Axes : -8 16 42 degrees QTcB Int : 447 ms Sinus rhythm with Premature atrial complexes Otherwise normal ECG When compared with ECG of 09-Jul-2025 12:00, Premature atrial complexes are now Present Referred By: Aaron Fowler Electronically Signed By: YANN CORREIA
--- OUTSIDE RECORDS SUMMARY | 2025-07-18 00:27 | XMS_ITS | Clinical Summary ---
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
--- OUTSIDE RECORDS SUMMARY | 2025-07-18 00:27 | XMS_ITS | Patient Health Record ---
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 Mission Support Name Role Phone Darrell Mcclain MD Primary Care Provider Lisa Obando Jr Sukhjinder Unavailable Allergies Allergen (clinical drug ingredient) Drug/Non Drug Allergy documented on EMR Reaction Allergy Type Onset Date Status meperidine Demerol Unknown Drug Allergy Active Reason For Referral No Information Medications Medication SIG (Take, Route, Frequency, Duration) Notes Start Date End Date Status Alendronate Sodium 70 MG Tablet Oral; Duration: 84 Active Estradiol Active Calcium Magnesium Ac tive Multivitamin Adult - Tablet 1 tablet Ora lly Once a day; Duration: 30 day(s) Active Flaxseed Oil - Oil as directed Active Vitamin D3 25 MCG (1000 UT) Tablet 1 tablet Orally Once a day; Duration: 30 day(s) Active Stool Softener 250 MG Capsule 1 capsule as needed Orally Once a day Active Colostrum Active Social History Tobacco Use: Social History Observation Description Date Details (start date - stop date) Former Smoker NA - NA Social History Drugs/Alcohol: Social Info Question Answer Notes Alcohol Screen Did you have a drink containing alcohol in the past year? Yes How often did you have a drink containing alcohol in the past year? Never (0 point) How many drinks did you have on a typical day when you were drinking in the past year? 1 or 2 drinks (0 point) How often did you have 6 or more drinks on one occasion in the past year? Never (0 point) Points 0 Interpretation Negative Tobacco Use: Social Info Question Answer Notes Tobacco Use/Smoking Patient is a former smoker How long has it been since you last smoked? > 10 years Additional Details Category Social Info Options Details Miscellaneous: Marital status: , Occupation: retired Plan Of Treatment No Information Insurance Providers Payer Name Payer Address Payer Phone Subscriber Number Group Number Insured Name Patient Relationship to Insured Coverage Start Date Coverage End Date [facility] CLAIM[facility] [address] [place] [address] [id number] ANDRE FOSS Self - patient is the insured [facility] [address] [facility] [place] [address] [id number] ANDRE FOSS Self - patient is the insured Medical (General) History Medical History History ICD Code Allergic rhinitis Osteoporosis Uterine prolapse Surgical History Surgery Date(Month/Year) D&C
[2025-07-18 00:49] LABS: Hematocrit 29.5 % (37.0-47.0); Hemoglobin 9.7 g/dl (12.0-16.0); Imm Gran Abs Auto 0.07 X10*3/uL (0.00-0.03); Imm Gran Pct Auto 0.6 % (0.0-0.4); Lymphocytes Absolute Auto 1.5 X10*3/uL (1.2-4.9); MANUAL DIFF FLAG NO; Mean Corpuscular HGB Conc 32.9 g/dl (31.0-35.0); Mean Corpuscular Hemoglobin 30.8 pg (27.0-33.0); Mean Corpuscular Volume 93.7 fL (80.0-98.0); NRBC Abs Auto 0.000 X10*3/uL (0.0-0.012); NRBC Pct Auto 0.0 /100WBC (0.0-0.2); Platelet Count 377 X10*3/uL (160-400); Red Blood Count 3.15 X10*6/uL (4.20-5.50); White Blood Count 12.3 X10*3/uL (4.8-10.8)
[2025-07-18 00:56] LABS: INTERNATIONAL NORM RATIO 1.1 (0.9-1.1); Prothrombin Time 13.2 SEC (11.2-13.5)
[2025-07-18 01:10] LABS: Alanine Aminotransferase 14 U/L (0-31); Albumin Level 3.7 g/dL (3.5-5.0); Alkaline Phosphatase 91 U/L (39-117); Anion Gap 13 (12-20); Aspartate Amino Transferase 33 U/L (5-31); Blood Urea Nitrogen 19 mg/dL (9-16); Calcium 8.7 mg/dL (8.4-10.2); Carbon Dioxide 26 mmol/L (22-29); Chloride 105 mmol/L (96-108); Creatinine Clr Calc Pharmacy 62.5; Estimated Glomerular Filt Rate > 60; Magnesium 2.3 mg/dL (1.6-2.6); Potassium 3.9 mmol/L (3.3-5.1); Sodium 140 mmol/L (135-145); Total Protein 6.4 g/dL (6.5-8.0)
--- NOTE | 2025-07-18 01:14 | PM.IMHP ---
History of Present Illness Date of Service: 07/18/25 Attending physician on admission: Earnestine Guevara Chief Complaint: Fall, right type pain Karuna Martel is 84 years old woman with past medical history significant for recent 07/10/2025 s/p left femoral IMN and severe osteoporosis was brought to the ED via ambulance from rehab after her left gave out while transferring from wheelchair to her bed and almost fell. Subsequently she felt a pop in her right thigh. She denied any head trauma, dizziness, chest pain, shortness on breath, palpitations, fever, cough or loss of consciousness. She denied history of coronary artery disease, heart disease or renal disease. She does not take blood thinners. In the ED, she was found to have stable vital signs. Blood workup showed leukocytosis of 12.3, hemoglobin 9.7 and hematocrit 29.5. Platelets are 377. There are no significant electrolyte imbalances. BUN is 19 and creatinine 0.62. Glucose is 122. LFTs are essentially normal. CXR is negative and showed mild left atelectasis. Right femur x-ray showed acute right femur mid diaphysis fracture and severe osteoarthritis of the right hip or right knee. ECG showed normal sinus rhythm with PACs and no acute ischemic changes. ED tx: None. [facility] Medical History (Updated 07/18/25 @ 00:38 by Aaron Fowler) Lyme disease Muscle weakness Osteoporosis Surgical History History of cataract surgery Social History Household Members: Family Housing: House Do you presently have visiting nurse or other home services: No Alcohol intake: never Patient Tobacco Use Status: Former Tobacco user Tobacco use type: Cigarette Smoked in Last 30 Days: No e-Cigarette/Vaping Use: Never Used Second Hand Smoke Exposure: Yes Advance Directives: Yes Advance Directives Information Provided: Yes Advance Directives on File: No Nutrition Risks: No Nutritional Risk service: No Current occupational status: retired 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 Cognitive needs: Yes (cane) Hearing needs: No Vision needs: Yes (Reading glasses) Meds Allergies Allergy/AdvReac Type Severity Reaction Status Date / Time meperidine (Demerol) Allergy Unknown hives Verified 07/17/25 23:26 From DEMEROL Allergy Severe SKIN FEELS Uncoded 07/17/25 23:26 LIKE SOMETHING CRAWLING ALL OVER Active Medications: Current Medications Calcium Carbonate (Calcium Carbonate 750 Mg Tab.Chew) 750 mg PO Q4H PRN PRN Reason: Heartburn Enoxaparin Sodium (Enoxaparin Sodium 40 Mg/0.4 Ml Syringe) 40 mg SUBCUT Q24H [facility] Lactated Ringer's (Lr) 1,000 mls @ 100 mls/hr IVCONT .Q10H [facility] Stop: 07/18/25 11:14 Acetaminophen (Ofirmev) 1,000 mg in 100 mls @ 400 mls/hr IV Q6H [facility] Stop: 07/18/25 19:29 Magnesium Hydroxide (Milk Of Magnesia 30 Ml Oral.Susp) 30 ml PO DAILY PRN PRN Reason: Constipation Melatonin (Melatonin 3 Mg Tablet) 6 mg PO BEDTIME PRN PRN Reason: Insomnia Morphine Sulfate (Morphine Sulfate 4 Mg/Ml Cartridge) 2 mg IVPUSH Q2H PRN; Protocol PRN Reason: Pain, Severe (Pain Scale 7-10) Ondansetron HCl (Ondansetron Hcl 4 Mg/2 Ml Vial) 4 mg IVPUSH Q8H PRN PRN Reason: Nausea and Vomiting Sodium Chloride (0.9 % Sodium Chloride Flush 3 Ml Syringe) 3 ml IVFLUSH QSHIFT [facility] Home Medications ?Medication ?Instructions ?Recorded ?Confirmed ?Last Taken ?Type multivitamin (Multiple Vitamins 1 tab PO DAILY 03/30/21 07/09/25 Unknown History tablet) estradiol 0.01% (0.1 mg/gram) 1 g vaginal 2XW 07/11/22 07/09/25 Unknown History vaginal cream (Estrace) cholecalciferol (vitamin D3) 25 25 mcg PO DAILY 05/05/25 07/09/25 Unknown History mcg (1,000 unit) capsule flaxseed oil 1,000 mg capsule 1,000 mg PO DAILY 05/05/25 07/09/25 Unknown History calcium carbonate (Calcium 600) 600 mg PO DAILY 07/09/25 07/09/25 Unknown History docusate sodium 100 mg capsule 200 mg PO DAILY 07/09/25 07/09/25 Unknown History naproxen sodium 220 mg tablet 220 mg PO BID 07/09/25 07/09/25 07/09/25 History Physical Exam Vital Signs and Narrative: Vital Signs: Last Vital Signs Temp 97.8 F 07/17/25 23:24 Pulse 85 07/17/25 23:24 Resp 18 07/17/25 23:24 BP 137/69 07/17/25 23:24 Pulse Ox 97 07/17/25 23:24 O2 Del Method Room Air 07/17/25 23:24 BMI result Body Mass Index 26.8 General: Alert, oriented, in no acute distress. Well nourished and cooperative. Afebrile. HEENT: Head normocephalic, atraumatic. PER, EOMI. Sclerae anicteric, conjunctiva clear. Oropharynx without erythema or exudate. Mucous membranes moist. Neck: Supple, no lymphadenopathy, or JVD. Heart: RRR, no murmurs, rubs or gallops. Lungs: Clear to auscultation bilaterally. No wheezes, rales, or rhonchi. Normal respiratory effort. Abdomen: Soft, non tenderness, nondistended, normoactive bowel sounds. No hepatosplenomegaly, masses or masses. Extremities: Left lower extremity edema: Tenderness to palpation around the thigh area. Surgical bandages in place and clean. Right lower extremity: Thigh tenderness and edema. No wounds or ecchymosis noted. Peripheral pulses 2+ bilaterally. Musculoskeletal: Limited range of motion. Generalized atrophy. Skin: Warm/Dry. No pallor. No jaundice. Neurologic: Alert & oriented x4. Moving all extremities spontaneously. Normal speech. Psychological: Normal mood and affect. Thought process coherent. Results Labs 07/18/25 00:41 07/18/25 00:41 Labs: Laboratory Results - last 24 hr 07/18/25 00:41 MCV 93.7 MCH 30.8 MCHC 32.9 RDW 14.0 Plt Count 377 D MPV 9.3 L Immature Gran % (Auto) 0.6 H Neut % (Auto) 78.0 H Lymph % (Auto) 11.8 L Fannin % (Auto) 7.5 Eos % (Auto) 1.5 Baso % (Auto) 0.6 Lymph # (Auto) 1.5 Fannin # (Auto) 0.9 Eos # (Auto) 0.2 Baso # (Auto) 0.1 Abs Immat Gran (auto) 0.07 H Absolute Neuts (auto) 9.6 H Absolute Nucleated RBC 0.000 Nucleated RBC % (auto) 0.0 PT 13.2 INR 1.1 Anion Gap 13 Estim Creat Clear Calc 62.5 Estimated GFR > 60 Random Glucose 122 H Calcium 8.7 Magnesium 2.3 Total Bilirubin 0.9 AST 33 H ALT 14 Alkaline Phosphatase 91 Total Protein 6.4 L Albumin 3.7 Assessment and Plan (1) Fracture of right femur: Status: Acute Plan Karuna Martel is 84 y/o woman with a PMHx significant for recent (07/10/2025) s/p left femoral IMN by Dr. Riddle and severe osteoporosis who presents with: 1. Right femur fracture, closed. NPO. Start IVFs. Fall precautions. Absolute bedrest. Insert indwelling urinary catheter. Pain control with Tylenol and morphine. Ortho consult -notified by ED. 2. Chronic anemia, likely associated to recent surgery and fracture. Continue to monitor. 3. Left lower extremity edema; likely secondary to recent surgery. Will obtain left lower extremity venous ultrasound to rule out DVT. Code status: Full DVT prophylaxis: Lovenox to start after surgery and/or per ortho. Patient will need hospitalization for at least 2 midnights for right femur fracture repair by Orthopedic surgery and adequate pain control. This documentation was generated using dictation software; minor spreading or deck cadet errors may be present. Quality Stroke Does the patient have a stroke diagnosis?: No VTE Prior VTE?: No VTE Risk Level:: Medical - moderate - high VTE Device Contraindication: N/A - Device Ordered VTE Drug Contraindication: N/A - Med Ordered
[2025-07-18 01:25] LABS: Resp Syncy Virus RNA Qual PCR NEGATIVE (Negative); SARS COV2 PCR INHOUSE NEGATIVE (Negative)
[2025-07-18] MEDS: Lactated Ringers 1,000 ML 100 ML IVCONT (02:05)
[2025-07-18 02:19] VITALS: BP 111/55; PULSE 76; RESP 18; O2SAT 92
--- NOTE | 2025-07-18 02:38 | PC.NURSE ---
Willow WADSWORTH from [facility] called for update on pt. Advised pt is being admitted for R sided fracture. Daughter continues at pt bedside.
[2025-07-18 04:47] LABS: MANUAL DIFF FLAG NO
[2025-07-18 04:49] LABS: Hematocrit 27.7 % (37.0-47.0); Hemoglobin 9.1 g/dl (12.0-16.0); Imm Gran Abs Auto 0.07 X10*3/uL (0.00-0.03); Imm Gran Pct Auto 0.6 % (0.0-0.4); Lymphocytes Absolute Auto 2.1 X10*3/uL (1.2-4.9); Mean Corpuscular HGB Conc 32.9 g/dl (31.0-35.0); Mean Corpuscular Hemoglobin 30.7 pg (27.0-33.0); Mean Corpuscular Volume 93.6 fL (80.0-98.0); NRBC Abs Auto 0.000 X10*3/uL (0.0-0.012); NRBC Pct Auto 0.0 /100WBC (0.0-0.2); Platelet Count 355 X10*3/uL (160-400); Red Blood Count 2.96 X10*6/uL (4.20-5.50); White Blood Count 11.5 X10*3/uL (4.8-10.8)
[2025-07-18 05:05] LABS: Anion Gap 13 (12-20); Blood Urea Nitrogen 16 mg/dL (9-16); Calcium 8.5 mg/dL (8.4-10.2); Carbon Dioxide 28 mmol/L (22-29); Chloride 106 mmol/L (96-108); Creatinine Clr Calc Pharmacy 61.5; Estimated Glomerular Filt Rate > 60; Potassium 4.7 mmol/L (3.3-5.1); Sodium 142 mmol/L (135-145)
--- NOTE | 2025-07-18 06:07 | PC.NURSE ---
pt reports 8/10 pain in b/l hips, pt given PRN morphine.
[2025-07-18 06:19] VITALS: BP 115/55; PULSE 80; RESP 14; TEMP 36.7; O2SAT 96
--- NOTE | 2025-07-18 07:42 | HO.NURTONUR ---
PER MD: Karuna Martel is 84 years old woman with past medical history significant for recent 07/10/2025 s/p left femoral IMN and severe osteoporosis was brought to the ED via ambulance from rehab after her left gave out while transferring from wheelchair to her bed and almost fell. Subsequently she felt a pop in her right thigh. She denied any head trauma, dizziness, chest pain, shortness on breath, palpitations, fever, cough or loss of consciousness. She denied history of coronary artery disease, heart disease or renal disease. She does not take blood thinners. In the ED, she was found to have stable vital signs. Blood workup showed leukocytosis of 12.3, hemoglobin 9.7 and hematocrit 29.5. Platelets are 377. There are no significant electrolyte imbalances. BUN is 19 and creatinine 0.62. Glucose is 122. LFTs are essentially normal. CXR is negative and showed mild left atelectasis. Right femur x-ray showed acute right femur mid diaphysis fracture and severe osteoarthritis of the right hip or right knee. ECG showed normal sinus rhythm with PACs and no acute ischemic changes. PER RN: Alert and oriented, bed bound NPO IV: 20G in right AC Meds: LR 100 mL/hr Laird cath in place Pain managed with PRN morphine and scheduled tylenol IV Admit: Right femur fx, surgery. Old left femur fx. Right leg is in carboard splint.
[2025-07-18 08:25] VITALS: BMI 24.5
[2025-07-18 08:47] VITALS: BP 141/61; PULSE 80; RESP 16; TEMP 36.1; O2SAT 96
--- NOTE | 2025-07-18 09:39 | PM.EVENT ---
Event Note Date of Service: 07/18/25 Event Note: Patient seen and examined already by hospitalist service this morning, seen and examined again No new complaints Physical exam and assessment and plan as per H&P. Time Spent With Patient Time: Total time managing care of this patient today ____ minutes.
--- NOTE | 2025-07-18 10:02 | PM.CNOR ---
History of Present Illness HPI Consult date: 07/18/25 Chief complaint: Right femur fracture Narrative: Ms. Martel is an 84-year-old female with a past medical history only significant for osteoporosis. She was last admitted on 07/09/25 for a left femoral shaft fracture and underwent an IM Nail with Dr. Mcginnis on 07/10/25. Patient states that she was transferring from her wheelchair into her bed when she began to fall. She tried to catch herself and felt a pop in the right femur. She felt immediate pain and was unable to ambulate. She was transported to the ED via EMS where x-rays were obtained and she was found to have a right femoral shaft fracture. She is currently in a splint that the EMS team applied, which she reports is comfortable. The patient was admitted to the medicine service with orthopedic consult for further evaluation and treatment. Review of Systems Review of Systems: Yes all other systems are reviewed and are negative FORMERLY [facility], [facility] Past Medical History Medical History (Updated 07/18/25 @ 00:38 by Aaron Fowler) Lyme disease Muscle weakness Osteoporosis Surgical History Surgical History History of cataract surgery Social History Social History Household Members: None Housing: Apartment Housing Other:: duplex Do you presently have visiting nurse or other home services: Yes (Currently at [facility], normally live at [facility]) Alcohol intake: never Patient Tobacco Use Status: Former Tobacco user Tobacco use type: Cigarette e-Cigarette/Vaping Use: Never Used Second Hand Smoke Exposure: Yes service: No Current occupational status: retired 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 Cognitive needs: Yes (cane) Hearing needs: No Vision needs: Yes (Reading glasses) Meds Allergies Allergy/AdvReac Type Severity Reaction Status Date / Time meperidine (Demerol) Allergy Unknown hives Verified 07/17/25 23:26 From DEMEROL Allergy Severe SKIN FEELS Uncoded 07/17/25 23:26 LIKE SOMETHING CRAWLING ALL OVER Active Medications: Current Medications Calcium Carbonate (Calcium Carbonate 750 Mg Tab.Chew) 750 mg PO Q4H PRN PRN Reason: Heartburn Enoxaparin Sodium (Enoxaparin Sodium 40 Mg/0.4 Ml Syringe) 40 mg SUBCUT Q24H [place] Lactated Ringer's (Lr) 1,000 mls @ 100 mls/hr IVCONT .Q10H [facility] Stop: 07/18/25 11:14 Last Admin: 07/18/25 02:05 Dose: 100 mls/hr Acetaminophen (Ofirmev) 1,000 mg in 100 mls @ 400 mls/hr IV Q6H [facility] Stop: 07/18/25 20:14 Last Infusion: 07/18/25 07:53 Dose: Infused Magnesium Hydroxide (Milk Of Magnesia 30 Ml Oral.Susp) 30 ml PO DAILY PRN PRN Reason: Constipation Melatonin (Melatonin 3 Mg Tablet) 6 mg PO BEDTIME PRN PRN Reason: Insomnia Morphine Sulfate (Morphine Sulfate 4 Mg/Ml Cartridge) 2 mg IVPUSH Q2H PRN; Protocol PRN Reason: Pain, Severe (Pain Scale 7-10) Last Admin: 07/18/25 09:47 Dose: 2 mg Ondansetron HCl (Ondansetron Hcl 4 Mg/2 Ml Vial) 4 mg IVPUSH Q8H PRN PRN Reason: Nausea and Vomiting Sodium Chloride (0.9 % Sodium Chloride Flush 3 Ml Syringe) 3 ml IVFLUSH QSHIFT [facility] Last Admin: 07/18/25 07:28 Dose: Not Given Home Medications ?Medication ?Instructions ?Recorded ?Confirmed ?Last Taken ?Type multivitamin (Multiple Vitamins 1 tab PO DAILY 03/30/21 07/09/25 Unknown History tablet) estradiol 0.01% (0.1 mg/gram) 1 g vaginal 2XW 07/11/22 07/09/25 Unknown History vaginal cream (Estrace) cholecalciferol (vitamin D3) 25 25 mcg PO DAILY 05/05/25 07/09/25 Unknown History mcg (1,000 unit) capsule flaxseed oil 1,000 mg capsule 1,000 mg PO DAILY 05/05/25 07/09/25 Unknown History calcium carbonate (Calcium 600) 600 mg PO DAILY 07/09/25 07/09/25 Unknown History docusate sodium 100 mg capsule 200 mg PO DAILY 07/09/25 07/09/25 Unknown History naproxen sodium 220 mg tablet 220 mg PO BID 07/09/25 07/09/25 07/09/25 History Physical Exam Vital Signs: Vital Signs: Last Vital Signs Temp 97.0 F 07/18/25 08:47 Pulse 80 07/18/25 08:47 Resp 16 07/18/25 08:47 BP 141/61 H 07/18/25 08:47 Pulse Ox 96 07/18/25 08:47 O2 Del Method Room Air 07/18/25 08:47 BMI result Body Mass Index 24.5 Const: General: cooperative, healthy appearing and no acute distress Resp: Effort & Inspection: normal respiratory effort and able to speak in complete sentences Extrem: Other: Right lower extremity remains in the splint from EMS. Patient reports that it is comfortable, therefore we will keep her in this until tomorrow AM. Able to dorsi/plantar flex. Sensation is reportedly intact. Psych: Appearance: grossly normal Mental Status: mental status grossly normal Attitude: cooperative Results Labs 07/18/25 04:34 07/18/25 04:34 Labs: Abnormal lab results 07/18/25 07/18/25 Range/Units 00:41 04:34 WBC 12.3 H 11.5 H (4.8-10.8) X10*3/uL RBC 3.15 L 2.96 L (4.20-5.50) X10*6/uL Hgb 9.7 L 9.1 L (12.0-16.0) g/dl Hct 29.5 L 27.7 L (37.0-47.0) % MPV 9.3 L 9.2 L (9.4-12.3) fL Immature Gran % (Auto) 0.6 H 0.6 H (0.0-0.4) % Neut % (Auto) 78.0 H (45-73) % Lymph % (Auto) 11.8 L 18.5 L (20-40) % Abs Immat Gran (auto) 0.07 H 0.07 H (0.00-0.03) X10*3/uL Absolute Neuts (auto) 9.6 H (2.0-8.3) x10*3/uL BUN 19 H (9-16) mg/dL Random Glucose 122 H (60-115) mg/dL AST 33 H (5-31) U/L Total Protein 6.4 L (6.5-8.0) g/dL H & H 07/18/25 07/18/25 Range/Units 00:41 04:34 Hgb 9.7 L 9.1 L (12.0-16.0) g/dl Hct 29.5 L 27.7 L (37.0-47.0) % Coagulation 07/18/25 Range/Units 00:41 INR 1.1 (0.9-1.1) All other labs normal. Assessment and Plan (1) Fracture of right femur: Status: Acute (2) Fracture of femoral shaft, left, closed: Status: Acute TTWB Plan Right femoral shaft fracture: The case was discussed with Dr. Willard and the patient. The risks, benefits, and alternatives of femoral shaft fracture fixation with an intramedullary nail were discussed with the patient. Benefits include stabilization of the fracture, spiritism of length and alignment, and the potential for earlier mobilization and weight-bearing with high rates of union. Risks include infection, bleeding or transfusion, neurovascular injury, fat embolism, DVT/PE, malalignment or leg length discrepancy, nonunion or delayed union that may require further surgery, hardware-related complications, and hip or knee pain related to the nail entry site, amputation, expiration as well as standard anesthesia risks. Alternatives include nonoperative management such as traction or bracing (with higher rates of malunion, nonunion, and immobility-related complications), or external fixation as temporary or definitive treatment. The patient voiced understanding and agreed to proceed. Patient will be NPO after midnight and is tentatively planed to undergo surgical intervention tomorrow 07/19/25. Type and screen obtained. Medicine to obtained medical clearance. s/p left femoral IM Nail 07/10/[address] Mcginnis: -Dressings to remain C/D/I -TTWB - in this case patient will be nonweightbearing on bilateral lower extremities -ROM Hip and knee while in bed -Ice as needed -Pain management Procedures Date of Service Date of Service: 07/18/25
--- NOTE | 2025-07-18 10:16 | PHA.MEDREC ---
Pharmacy Consult ? Medication Reconciliation Pharmacy has completed the medication reconciliation.Med rec complete, patient was just discharge a few days ago and went to [facility] they only have record of her taking the aspirin, but upon discharge the other meds were continued.
[2025-07-18 15:43] VITALS: BP 133/67; PULSE 81; RESP 16; TEMP 36.3; O2SAT 96
--- NOTE | 2025-07-18 16:16 | MHC.CM.PN ---
Addendum entered by Domonique De Oliveira 07/19/25 09:33: PCP: SANDRO SMALLS Original Note: PT REPORTS SHE LIVES AT HOME WITH FAMILY AND IS INDEPENDENT AT BASELINE SHE HAS A WALKER SHE WAS USING PRN PRIOR TO HER L HIP FRACTURE ABOUT A WEEK AGO SHE IS UNSURE WHO HER PCP IS, BUT SAYS IT IS AT [facility] COPY OF HCP REQUESTED IMM DELIVERED DCP: PT WILL NEED REHAB SHE WAS AT [facility] SINCE HER LAST DC ON 07/13, HOWEVER NOW THAT THERE ARE FRACTURES ON BOTH SIDES, SHE MAY NOT QUALIFY FOR THAT LOC AT [place]. THEY ARE [facility]QUESTING REFERRALS TO [facility] PT WILL NEED BLS TRANSPORT
[2025-07-18 19:49] VITALS: BP 106/67; PULSE 88; RESP 15; TEMP 36.1; O2SAT 96
[2025-07-19] VITALS (10 sets, daily range): BP systolic 102–144; BP diastolic 55–76; PULSE 83–98; RESP 15–20; TEMP 36.1–37.7; O2SAT 91–100
--- NOTE | 2025-07-19 07:36 | HO.PM.IMPN ---
Subjective Subjective Date of Service: 07/19/25 Interval History: hip fx Review of Systems has some hip pain no new c/o. Review of Systems: Yes all other systems are reviewed and are negative Physical Exam Exam: Exam: Appearance: Alert.? Oriented X3.? cvs: [id number], [id number] res: clear to auscultation ,no rales or wheezing. abd: no rebound or guarding ,nt, bs present. ext pulses present , no cyanosis. right hip mild pain neuro: axo3 , nonfocal. Vital Signs: Vital Signs: Last Vital Signs Temp 96.9 F 07/19/25 03:16 Pulse 83 07/19/25 03:16 Resp 16 07/19/25 03:16 BP 133/69 07/19/25 03:16 Pulse Ox 95 07/19/25 03:16 O2 Del Method Room Air 07/19/25 03:16 BMI result Body Mass Index 24.5 Objective Data Active Medications Calcium Carbonate (Calcium Carbonate 750 Mg Tab.Chew) 750 mg PO Q4H PRN PRN Reason: Heartburn Calcium Carbonate (Calcium Carbonate 750 Mg Tab.Chew) 750 mg PO DAILY [facility] Last Admin: 07/19/25 07:23 Dose: Not Given Documented By: AMADO Non-Admin Reason: NPO Docusate Sodium (Docusate Sodium 100 Mg Capsule) 200 mg PO DAILY [facility] Last Admin: 07/19/25 07:23 Dose: Not Given Documented By: AMADO Non-Admin Reason: NPO Enoxaparin Sodium (Enoxaparin Sodium 40 Mg/0.4 Ml Syringe) 40 mg SUBCUT Q24H [facility] Last Admin: 07/19/25 07:23 Dose: Not Given Documented By: AMADO Non-Admin Reason: held for OR Cefazolin Sodium/Dextrose (Ancef) 2 gm in 50 mls @ 100 mls/hr IV PREOP ONE Stop: 07/19/25 08:29 Dextrose/Sodium Chloride (D5ns) 1,000 mls @ 60 mls/hr IVCONT .[id number] [facility] Last Admin: 07/18/25 23:12 Dose: 60 mls/hr Documented By: IRMA Magnesium Hydroxide (Milk Of Magnesia 30 Ml Oral.Susp) 30 ml PO DAILY PRN PRN Reason: Constipation Melatonin (Melatonin 3 Mg Tablet) 6 mg PO BEDTIME PRN PRN Reason: Insomnia Morphine Sulfate (Morphine Sulfate 4 Mg/Ml Cartridge) 2 mg IVPUSH Q2H PRN; Protocol PRN Reason: Pain, Severe (Pain Scale 7-10) Last Admin: 07/18/25 23:11 Dose: 2 mg Documented By: IRMA Multivitamins/Vitamin C (Multivitamin Tablet) 1 tab PO DAILY [facility] Last Admin: 07/19/25 07:23 Dose: Not Given Documented By: AMADO Non-Admin Reason: NPO Ondansetron HCl (Ondansetron Hcl 4 Mg/2 Ml Vial) 4 mg IVPUSH Q8H PRN PRN Reason: Nausea and Vomiting Sodium Chloride (0.9 % Sodium Chloride Flush 3 Ml Syringe) 3 ml IVFLUSH QSHIFT [facility] Last Admin: 07/19/25 07:23 Dose: Not Given Documented By: AMADO Non-Admin Reason: IV Running Vitamin D (Cholecalciferol (Vitamin D3) 25 Mcg Tablet) 25 mcg PO DAILY [facility] Last Admin: 07/19/25 07:23 Dose: Not Given Documented By: AMADO Non-Desirae Reason: NPO Labs 07/19/25 08:46 07/19/25 08:46 Assessment and Plan (1) Fracture of right femur: Status: Acute Plan 84 y/o woman with a PMHx significant for recent (07/10/2025) s/p left femoral IMN by Dr. Riddle and severe osteoporosis who presents with: 1. Right femur fracture, closed. NPO. Start IVFs. Fall precautions. Pain control with Tylenol and morphine. Ortho consult -possible OR today. 2. Chronic anemia, likely associated to recent surgery and fracture. Continue to monitor. h/h stable 9.2/28.6 3. Left lower extremity edema; likely secondary to recent surgery. left lower extremity venous ultrasound :Focal, nonocclusive eccentric chronic appearing deep vein thrombosis in the proximal left femoral vein. No findings of acute deep vein thrombosis currently no pain ,has some swellin will check with hematology. Code status: Full . DVT prophylaxis: Lovenox to start after surgery and/or per ortho. Patient will need hospitalization for at least 2 midnights for right femur fracture repair by Orthopedic surgery and adequate pain control Quality Stroke Does the patient have a stroke diagnosis?: No VTE Prior VTE?: No VTE Risk Level:: Medical - moderate - high VTE Device Contraindication: N/A - Device Ordered VTE Drug Contraindication: N/A - Med Ordered
--- NOTE | 2025-07-19 09:00 | P.CONAN_ITS ---
HPI - Anesthesia Eval Consult details Narrative: Right femur fracture PMFSH Active Problems Active Problems: All Active Problems Fracture of right femur (Acute) Fracture of femoral shaft, left, closed (Acute) Closed left femoral fracture (Acute) Left leg pain (Acute) Lower extremity weakness (Acute) Weakness (Acute) Thigh pain (Acute) Abnormal laboratory test (Acute) Health maintenance examination (Acute) Osteoarthritis (Acute) Herpes zoster (Acute) Dupuytren's contracture of right hand (Acute) Distal radius fracture, left (Acute) Muscle weakness (Acute) Osteoporosis (Acute) Past Medical History Medical History (Updated 07/18/25 @ 00:38 by Aaron Fowler) Lyme disease Muscle weakness Osteoporosis Family History Family history of problems with anesthesia: No Surgical History Surgical History History of cataract surgery History of Problems with Anesthesia: No Social History Social History Household Members: None Housing: Apartment Housing Other:: duplex Do you presently have visiting nurse or other home services: Yes (Currently at [facility], normally live at [facility]) Alcohol intake: never Patient Tobacco Use Status: Former Tobacco user Tobacco use type: Cigarette e-Cigarette/Vaping Use: Never Used Second Hand Smoke Exposure: Yes service: No Current occupational status: retired 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 Cognitive needs: Yes (cane) Hearing needs: No Vision needs: Yes (Reading glasses) Meds Allergies Allergy/AdvReac Type Severity Reaction Status Date / Time meperidine (Demerol) Allergy Unknown hives Verified 07/17/25 23:26 From DEMEROL Allergy Severe SKIN FEELS Uncoded 07/17/25 23:26 LIKE SOMETHING CRAWLING ALL OVER Active Medications: Current Medications Calcium Carbonate (Calcium Carbonate 750 Mg Tab.Chew) 750 mg PO Q4H PRN PRN Reason: Heartburn Calcium Carbonate (Calcium Carbonate 750 Mg Tab.Chew) 750 mg PO DAILY [facility] Last Admin: 07/19/25 07:23 Dose: Not Given Docusate Sodium (Docusate Sodium 100 Mg Capsule) 200 mg PO DAILY [facility] Last Admin: 07/19/25 07:23 Dose: Not Given Enoxaparin Sodium (Enoxaparin Sodium 40 Mg/0.4 Ml Syringe) 40 mg SUBCUT Q24H [facility] Last Admin: 07/19/25 07:23 Dose: Not Given Dextrose/Sodium Chloride (D5ns) 1,000 mls @ 60 mls/hr IVCONT .[id number] [facility] Last Admin: 07/18/25 23:12 Dose: 60 mls/hr Magnesium Hydroxide (Milk Of Magnesia 30 Ml Oral.Susp) 30 ml PO DAILY PRN PRN Reason: Constipation Melatonin (Melatonin 3 Mg Tablet) 6 mg PO BEDTIME PRN PRN Reason: Insomnia Morphine Sulfate (Morphine Sulfate 4 Mg/Ml Cartridge) 2 mg IVPUSH Q2H PRN; Protocol PRN Reason: Pain, Severe (Pain Scale 7-10) Last Admin: 07/18/25 23:11 Dose: 2 mg Multivitamins/Vitamin C (Multivitamin Tablet) 1 tab PO DAILY [facility] Last Admin: 07/19/25 07:23 Dose: Not Given Ondansetron HCl (Ondansetron Hcl 4 Mg/2 Ml Vial) 4 mg IVPUSH Q8H PRN PRN Reason: Nausea and Vomiting Sodium Chloride (0.9 % Sodium Chloride Flush 3 Ml Syringe) 3 ml IVFLUSH QSHIFT [facility] Last Admin: 07/19/25 07:23 Dose: Not Given Vitamin D (Cholecalciferol (Vitamin D3) 25 Mcg Tablet) 25 mcg PO DAILY [facility] Last Admin: 07/19/25 07:23 Dose: Not Given Home Medications ?Medication ?Instructions ?Recorded ?Confirmed ?Last Taken ?Type multivitamin (Multiple Vitamins 1 tab PO DAILY 1 07/18/25 Unknown History tablet) estradiol 0.01% (0.1 mg/gram) 1 g vaginal 2XW 07/11/22 07/18/25 Unknown History vaginal cream (Estrace) cholecalciferol (vitamin D3) 25 25 mcg PO DAILY 07/18/25 Unknown History mcg (1,000 unit) capsule flaxseed oil 1,000 mg capsule 1,000 mg PO DAILY 07/18/25 Unknown History calcium carbonate (Calcium 600) 600 mg PO DAILY 07/18/25 Unknown History docusate sodium 100 mg capsule 200 mg PO DAILY 5 07/18/25 Unknown History naproxen sodium 220 mg tablet 220 mg PO BID 11/20/13 0909/17/24 07/09/25 History Exam Height,Weight and Vital Signs: Height 5 ft 2 in Weight 60.7 kg Last Vital Signs Temp 98.1 F 07/19/25 07:41 Pulse 84 07/19/25 07:41 Resp 16 07/19/25 07:41 BP 137/64 07/19/25 07:41 Pulse Ox 95 07/19/25 07:41 O2 Del Method Room Air 07/19/25 07:41 Pertinent Lab Results Pertinent Lab Results: Laboratory Tests 07/18/25 07/18/25 00:41 04:34 WBC 12.3 H 11.5 H RBC 3.15 L 2.96 L Hgb 9.7 L 9.1 L Hct 29.5 L 27.7 L MCV 93.7 93.6 MCH 30.8 30.7 MCHC 32.9 32.9 RDW 14.0 14.2 Plt Count 377 D 355 MPV 9.3 L 9.2 L Immature Gran % (Auto) 0.6 H 0.6 H Neut % (Auto) 78.0 H 68.7 Lymph % (Auto) 11.8 L 18.5 L [place] % (Auto) 7.5 9.9 Eos % (Auto) 1.5 1.9 Baso % (Auto) 0.6 0.4 Lymph # (Auto) 1.5 2.1 [place] # (Auto) 0.9 1.1 Eos # (Auto) 0.2 0.2 Baso # (Auto) 0.1 0.1 Abs Immat Gran (auto) 0.07 H 0.07 H Absolute Neuts (auto) 9.6 H 7.9 Absolute Nucleated RBC 0.000 0.000 Nucleated RBC % (auto) 0.0 0.0 PT 13.2 INR 1.1 Sodium 140 142 Potassium 3.9 4.7 D Chloride 105 106 Carbon Dioxide 26 28 Anion Gap 13 13 BUN 19 H 16 Creatinine 0.62 0.63 Estim Creat Clear Calc 62.5 61.5 Estimated GFR > 60 > 60 Random Glucose 122 H 111 Calcium 8.7 8.5 Magnesium 2.3 Total Bilirubin 0.9 AST 33 H ALT 14 Alkaline Phosphatase 91 Total Protein 6.4 L Albumin 3.7 Influenza Type A (PCR) NEGATIVE Influenza Type B (PCR) NEGATIVE RSV RNA Qual (PCR) NEGATIVE SARS-CoV-2 RNA (RT-PCR) NEGATIVE Blood Type O Negative Antibody Screen NEGATIVE Airway Mallampati Class: I TM Dist: >3cm Neck ROM: Full Denture: Upper and Lower Loose/Missing/Broken Teeth: No Heart: RRR Lungs: CTA Assessment and Plan Assessment Anesthesia Assessment: Anesthesia Plan Discussed and Chart Reviewed Final Anesthetic Review Family History of Problems with Anesthesia: No History of Problems with Anesthesia: No NPO: Yes ASA Class: II Final Preanesthetic Review: No Changes in Pt Med Stat, Meds/Allgs Chart Reviewed, Consent Obtained/Reviewed and Anes Risks/Benef Reviewed Patient Risk: Intermediate Procedure Risk: Intermediate Anesthetic Plan Anesthetic Plan: GA Disposition: Standard PACU
[2025-07-19 09:16] LABS: Hematocrit 28.6 % (37.0-47.0); Hemoglobin 9.2 g/dl (12.0-16.0)
--- NOTE | 2025-07-19 09:26 | MHC.SHP ---
Pre-Procedural Eval Section A - 24 Hr Update-Section A only Date of Service: 07/19/25 The patient is an INPATIENT: Yes Changes since office visit: No Cold of Flu in the past 2 weeks, No New Medical Problems, No Changes in Medication and No Patient answered all questions The patient has been examined within 24 hours of the surgical procedure. The History & Physical has been completed within 30 days and I have reviewed it.: Yes Section B - Complete if H&P > 30 days Chief Complaint: Right femur fracture Allergies: Allergies Allergy/AdvReac Type Severity Reaction Status Date / Time meperidine (Demerol) Allergy Unknown hives Verified 07/17/25 23:26 From DEMEROL Allergy Severe SKIN FEELS Uncoded 07/17/25 23:26 LIKE SOMETHING CRAWLING ALL OVER Plan I have reviewed the history and physical and performed a pertinent physical examination on my patient. No changes have occurred unless specified. Time Spent With Patient Time: Total time managing care of this patient today ____ minutes.
[2025-07-19 09:46] LABS: Anion Gap 10 (12-20); Blood Urea Nitrogen 13 mg/dL (9-16); Calcium 8.7 mg/dL (8.4-10.2); Carbon Dioxide 28 mmol/L (22-29); Chloride 108 mmol/L (96-108); Creatinine Clr Calc Pharmacy 67.6; Estimated Glomerular Filt Rate > 60; Potassium 4.4 mmol/L (3.3-5.1); Sodium 142 mmol/L (135-145)
--- NOTE | 2025-07-19 11:13 | PM.OP ---
Brief Operative Note Date of Service: 07/19/25 Pre-op diagnosis: right femur fracture Post-op diagnosis: same Procedure: Right femoral IMN Implants: [id number] piriformis entry nail with 2 hip screws and 2 lag screws Surgeon: Anthony Willard MD Anesthesia: GETA Was an Senior Mechanical Designer used for this Procedure?: Yes Senior Mechanical Designer: Beatriz De La Rosa Estimated blood loss (mL): 100 IV fluids (mL): 750 Pathology: none sent Condition: stable Disposition: PACU
[2025-07-19 12:57] LABS: Platelet Count 429 X10*3/uL (160-400)
[2025-07-19] MEDS: 0.9 % Sodium Chloride Flush 3 ML SYRINGE IVFLUSH (16:37)
--- NOTE | 2025-07-19 17:01 | PC.NURSE ---
Pt was educated on incentive spirometer use and encouraged to use 10x/hr. Pt has orders for WBAT but was only able to sit at edge of bed with 2A for a couple of mins before feeling light headed and requested to lay back down. Pt denies pain at this time and stated she felt back to baseline once laying down. All safety measures in place, daughter at bedside.
[2025-07-20 03:11] VITALS: BP 108/54; PULSE 93; RESP 15; TEMP 36.1; O2SAT 89
[2025-07-20 06:30] LABS: Hematocrit 24.2 % (37.0-47.0); Hemoglobin 7.9 g/dl (12.0-16.0); Mean Corpuscular HGB Conc 32.6 g/dl (31.0-35.0); Mean Corpuscular Hemoglobin 31.5 pg (27.0-33.0); Mean Corpuscular Volume 96.4 fL (80.0-98.0); NRBC Abs Auto 0.000 X10*3/uL (0.0-0.012); NRBC Pct Auto 0.0 /100WBC (0.0-0.2); Platelet Count 351 X10*3/uL (160-400); Red Blood Count 2.51 X10*6/uL (4.20-5.50); White Blood Count 9.7 X10*3/uL (4.8-10.8)
[2025-07-20 06:37] LABS: Anion Gap 10 (12-20); Blood Urea Nitrogen 16 mg/dL (9-16); Calcium 7.9 mg/dL (8.4-10.2); Carbon Dioxide 26 mmol/L (22-29); Chloride 108 mmol/L (96-108); Creatinine Clr Calc Pharmacy 60.9; Estimated Glomerular Filt Rate > 60; Potassium 3.8 mmol/L (3.3-5.1); Sodium 140 mmol/L (135-145)
[2025-07-20 07:09] VITALS: BP 107/60; PULSE 89; RESP 18; TEMP 36.1; O2SAT 93
--- NOTE | 2025-07-20 07:31 | P.PNOP_ITS ---
Subjective Subjective Date of Service: 07/20/25 Interval history: POD1 s/p rt femoral IM Nail Patient is resting in bed comfortably No overnight events Pain is managed No additional complaints Physical Exam Vital Signs: Vital Signs: Last Vital Signs Temp 97 F 07/20/25 07:09 Pulse 89 07/20/25 07:09 Resp 18 07/20/25 07:09 BP 107/60 07/20/25 07:09 Pulse Ox 93 07/20/25 07:09 O2 Del Method Room Air 07/20/25 07:09 O2 Flow Rate 2 07/19/25 11:25 BMI result Body Mass Index 24.5 Const: General: cooperative, healthy appearing and no acute distress Resp: Effort & Inspection: normal respiratory effort and able to speak in complete sentences Extrem: Other: right lower extremity: dressing is c/d/i. Able to dorsi/plantar flex. Calf is supple and nontender. Sensation intact. Pedal pulse intact. Psych: Appearance: grossly normal Mental Status: mental status grossly norm al Attitude: cooperative Procedures Date of Service Date of Service: 07/20/25 Progress Note: A&P Assessment and plan (1) Fracture of right femur: Status: Acute (2) Closed left femoral fracture: Status: Acute Plan s/p Left femoral IM NAil 07/10/[address]: WBAT Acute on chronic DVT LLE Lovenox s/p rt femoral IM Nail 07/19/25 with NE WBAT Lovenox Continue pain mgmnt begin PT/OT for bilateral femoral IM Nails: WBAT bilateral lower extremities Dispo planning-Pending PT/OT eval, pain mgmnt, May rehab to rehab once medically cleared and has worked with physical therapy. Time Spent With Patient Time: Total time managing care of this patient today ____ minutes. Quality Stroke Does the patient have a stroke diagnosis?: No VTE Prior VTE?: No VTE Risk Level:: Medical - moderate - high VTE Device Contraindication: N/A - Device Ordered VTE Drug Contraindication: N/A - Med Ordered
--- NOTE | 2025-07-20 08:13 | P.PNIM_ITS ---
Subjective Subjective Date of Service: 07/20/25 Review of Systems Follow-up for Right Hip Fracture Feeling good today, mild pain reported constipation Physical Exam 2 Exam: Exam: No Fever Vital Signs: Vital Signs: Last Vital Signs Temp 97 F 07/20/25 07:09 Pulse 89 07/20/25 07:09 Resp 18 07/20/25 07:09 BP 107/60 07/20/25 07:09 Pulse Ox 93 07/20/25 07:09 O2 Del Method Room Air 07/20/25 07:09 O2 Flow Rate 2 07/19/25 11:25 BMI result Body Mass Index 24.5 Resp: Other: Lungs clear bilaterally, no cough, no SOB, no wheezing Cardio: Other: regular rate and rhythm GI: Other: abd non distended : Other: Laird inplace, no hematuria Neuro: Other: Alert, oriented to person time and place Extrem: Other: pulses present, no cyanosis Objective Data Active Medications Calcium Carbonate (Calcium Carbonate 750 Mg Tab.Chew) 750 mg PO Q4H PRN PRN Reason: Heartburn Calcium Carbonate (Calcium Carbonate 750 Mg Tab.Chew) 750 mg PO DAILY [facility] Last Admin: 07/19/25 07:23 Dose: Not Given Documented By: AMADO Non-Admin Reason: NPO Docusate Sodium (Docusate Sodium 100 Mg Capsule) 200 mg PO DAILY [facility] Last Admin: 07/19/25 07:23 Dose: Not Given Documented By: AMADO Non-Admin Reason: NPO Enoxaparin Sodium (Enoxaparin Sodium 40 Mg/0.4 Ml Syringe) 40 mg SUBCUT Q24H [facility] On Hold: 07/19/25 11:49 Comment: Order held by Process Transfer Last Admin: 07/19/25 07:23 Dose: Not Given Documented By: AMADO Non-Admin Reason: held for OR Enoxaparin Sodium (Enoxaparin Sodium 40 Mg/0.4 Ml Syringe) 40 mg SUBCUT Q24H [facility] Dextrose/Sodium Chloride (D5ns) 1,000 mls @ 60 mls/hr IVCONT .[id number] [facility] Last Admin: 07/19/25 16:35 Dose: 60 mls/hr Documented By: AMADO Magnesium Hydroxide (Milk Of Magnesia 30 Ml Oral.Susp) 30 ml PO DAILY PRN PRN Reason: Constipation Melatonin (Melatonin 3 Mg Tablet) 6 mg PO BEDTIME PRN PRN Reason: Insomnia Morphine Sulfate (Morphine Sulfate 4 Mg/Ml Cartridge) 2 mg IVPUSH Q2H PRN; Protocol PRN Reason: Pain, Severe (Pain Scale 7-10) Last Admin: 07/18/25 23:11 Dose: 2 mg Documented By: IRMA Multivitamins/Vitamin C (Multivitamin Tablet) 1 tab PO DAILY [facility] Last Admin: 07/19/25 07:23 Dose: Not Given Documented By: AMADO Non-Admin Reason: NPO Ondansetron HCl (Ondansetron Hcl 4 Mg/2 Ml Vial) 4 mg IVPUSH Q8H PRN PRN Reason: Nausea and Vomiting Sodium Chloride (0.9 % Sodium Chloride Flush 3 Ml Syringe) 3 ml IVFLUSH QSHIFT [facility] Last Admin: 07/20/25 07:33 Dose: Not Given Documented By: BOLIVAR Non-Admin Reason: IV Running Vitamin D (Cholecalciferol (Vitamin D3) 25 Mcg Tablet) 25 mcg PO DAILY [facility] Last Admin: 07/19/25 07:23 Dose: Not Given Documented By: AMADO Non-Admin Reason: NPO Labs 07/20/25 05:43 07/20/25 05:43 Labs: Laboratory Results - last 24 hr 07/19/25 07/20/25 08:46 05:43 MCV 96.4 MCH 31.5 MCHC 32.6 RDW 15.0 Plt Count 429 H 351 MPV 9.3 L Absolute Nucleated RBC 0.000 Nucleated RBC % (auto) 0.0 Anion Gap 10 L 10 L Estim Creat Clear Calc 67.6 60.9 Estimated GFR > 60 > 60 Random Glucose 100 122 H Calcium 8.7 7.9 L D Assessment and Plan (1) Osteoporosis: Status: Acute Plan 82 year old women with right hip fracture s/p IMN on 07/19/25 Right hip fracture s/p IMN continue pain management with Morphine and Tylenol oob to chair and ambulation with PT Orthopedic surgery following Acute on chronic normocytic anemia significant decreased in HH in one week could be post surgical Check Iron studies HH 7.9/24.2 will continue to monitor plan for transfusion tomorrow if not improved Constipation reports small BM this morning Bowel regimen osteoporosis Continue vitamin D and calcium Code Status: Full Code DVT Prophylaxis: Lovenox Patient will need hospitalization for at least two midnights for right femur fracture repair Quality Stroke Does the patient have a stroke diagnosis?: No VTE Prior VTE?: No VTE Risk Level:: Medical - moderate - high VTE Device Contraindication: N/A - Device Ordered VTE Drug Contraindication: N/A - Med Ordered
--- NOTE | 2025-07-20 08:32 | P.PNIM_ITS ---
Subjective Subjective Date of Service: 07/20/25 Physical Exam 2 Vital Signs: Vital Signs: Last Vital Signs Temp 97 F 07/20/25 07:09 Pulse 89 07/20/25 07:09 Resp 18 07/20/25 07:09 BP 107/60 07/20/25 07:09 Pulse Ox 93 07/20/25 07:09 O2 Del Method Room Air 07/20/25 07:09 O2 Flow Rate 2 07/19/25 11:25 BMI result Body Mass Index 24.5 Objective Data Active Medications Calcium Carbonate (Calcium Carbonate 750 Mg Tab.Chew) 750 mg PO Q4H PRN PRN Reason: Heartburn Calcium Carbonate (Calcium Carbonate 750 Mg Tab.Chew) 750 mg PO DAILY [facility] Last Admin: 07/19/25 07:23 Dose: Not Given Documented By: AMADO Non-Admin Reason: NPO Docusate Sodium (Docusate Sodium 100 Mg Capsule) 200 mg PO DAILY [facility] Last Admin: 07/19/25 07:23 Dose: Not Given Documented By: AMADO Non-Admin Reason: NPO Enoxaparin Sodium (Enoxaparin Sodium 40 Mg/0.4 Ml Syringe) 40 mg SUBCUT Q24H [facility] On Hold: 07/19/25 11:49 Comment: Order held by Process Transfer Last Admin: 07/19/25 07:23 Dose: Not Given Documented By: AMADO Non-Admin Reason: held for OR Enoxaparin Sodium (Enoxaparin Sodium 40 Mg/0.4 Ml Syringe) 40 mg SUBCUT Q24H [facility] Dextrose/Sodium Chloride (D5ns) 1,000 mls @ 60 mls/hr IVCONT .[id number] [facility] Last Admin: 07/19/25 16:35 Dose: 60 mls/hr Documented By: AMADO Magnesium Hydroxide (Milk Of Magnesia 30 Ml Oral.Susp) 30 ml PO DAILY PRN PRN Reason: Constipation Melatonin (Melatonin 3 Mg Tablet) 6 mg PO BEDTIME PRN PRN Reason: Insomnia Morphine Sulfate (Morphine Sulfate 4 Mg/Ml Cartridge) 2 mg IVPUSH Q2H PRN; Protocol PRN Reason: Pain, Severe (Pain Scale 7-10) Last Admin: 07/18/25 23:11 Dose: 2 mg Documented By: IRMA Multivitamins/Vitamin C (Multivitamin Tablet) 1 tab PO DAILY [facility] Last Admin: 07/19/25 07:23 Dose: Not Given Documented By: AMADO Non-Admin Reason: NPO Ondansetron HCl (Ondansetron Hcl 4 Mg/2 Ml Vial) 4 mg IVPUSH Q8H PRN PRN Reason: Nausea and Vomiting Sodium Chloride (0.9 % Sodium Chloride Flush 3 Ml Syringe) 3 ml IVFLUSH QSHIFT [facility] Last Admin: 07/20/25 07:33 Dose: Not Given Documented By: BOLIVAR Non-Admin Reason: IV Running Vitamin D (Cholecalciferol (Vitamin D3) 25 Mcg Tablet) 25 mcg PO DAILY [facility] Last Admin: 07/19/25 07:23 Dose: Not Given Documented By: AMADO Non-Admin Reason: NPO Labs 07/20/25 05:43 07/20/25 05:43 Labs: Laboratory Results - last 24 hr 07/19/25 07/20/25 08:46 05:43 MCV 96.4 MCH 31.5 MCHC 32.6 RDW 15.0 Plt Count 429 H 351 MPV 9.3 L Absolute Nucleated RBC 0.000 Nucleated RBC % (auto) 0.0 Anion Gap 10 L 10 L Estim Creat Clear Calc 67.6 60.9 Estimated GFR > 60 > 60 Random Glucose 100 122 H Calcium 8.7 7.9 L D Quality Stroke Does the patient have a stroke diagnosis?: No VTE Prior VTE?: No VTE Risk Level:: Medical - moderate - high VTE Device Contraindication: N/A - Device Ordered VTE Drug Contraindication: N/A - Med Ordered
[2025-07-20] MEDS: Milk of Magnesia 30 ML ORAL.SUSP PO (09:07)
[2025-07-20 09:28] LABS: Iron 14 mcg/dL (30-160); Percent Iron Saturation 9 % (15-50); Total Iron Binding Capacity 154 mcg/dL (228-428); Unsaturated Iron Binding 140 ug/dL
--- NOTE | 2025-07-20 09:43 | HO.POSTANES ---
Post Anesthesia Evaluation Post Anesthesia Evaluation Date of Service: 07/20/25 Vital Signs: Vital Signs Temp Pulse Resp BP Pulse Ox O2 Del Method 07/20/25 07:09 97 F 89 18 107/60 93 Room Air 07/20/25 03:11 97.0 F 93 15 108/54 L 89 L Room Air Anesthesia: General Mental Status: Awake Pain Control: Satisfactory Nausea/Vomiting: None Hydration: Adequate Anesthesia-Related Issues: No Anes. Related Issues
[2025-07-20 10:28] VITALS: O2SAT 93
--- NOTE | 2025-07-20 11:37 | W.PM.OPN ---
Operative Note Operative Note Date of Service: 07/19/25 Narrative: Date of Service: 07/19/25 Pre-op diagnosis: right femur fracture Post-op diagnosis: same Procedure: Right femoral IMN Implants: [id number] piriformis entry nail with 2 hip screws and 2 lag screws Surgeon: Anthony Willard MD Anesthesia: GETA Was an Supervisor [employer] used for this Procedure?: Yes Super[employer]: Beatriz De La Rosa Estimated blood loss (mL): 100 IV fluids (mL): 750 Pathology: none sent Condition: stable Disposition: PACU Procedure in detail: Patient was brought to the operating room and prepped and draped in standard sterile fashion. Time-out was called to identify proper site procedure proper surgeon and IV antibiotics per weight were administered. She was positioned on the fracture table and a traction and slight internal rotation were performed and biplanar fluoroscopy confirmed initial fracture reduction. I then made a stab incision proximal to the greater trochanter in using a guidewire made a entry point at the piriformis fossa. Biplanar fluoroscopy was used to confirm entry point. I then over-reamed with 13.5 mm reamer placed my ball-tip guidewire down distally in the femur after reducing the fracture with traction and internal rotation. I measured my length. I selected a [id number] piriformis entry recon nail and reamed up to a 12.5. I then inserted the nail. I then turned my attention to the hip where I placed 2 screws through the neck into the head using standard AO technique. . Once I was satisfied with the position of the 2 screws I turned my attention to the distal aspect of the nail. Using perfect nondalton technique I placed 2 static distal interlocking screw in standard AO technique. I then removed all extraneous instrumentation. Final biplanar radiographs were taken. I was satisfied with the position of the hardware and the fracture reduction. I think copiously irrigated closed with absorbable sutures acacia and injected 30 mL of into the area of the incisions. Traction was let down patient was placed in sterile dressing awakened from anesthesia brought to recovery room stable condition there were no known complications.
--- NOTE | 2025-07-20 14:49 | MHC.CM.PN ---
not medically ready for dc dc plan str
[2025-07-20 16:00] VITALS: BP 111/56; PULSE 85; RESP 17; TEMP 36.3; O2SAT 94
[2025-07-20] MEDS: 0.9 % Sodium Chloride Flush 3 ML SYRINGE IVFLUSH ×2 (17:01→21:14)
[2025-07-20 20:00] VITALS: BP 111/53; PULSE 88; RESP 12; TEMP 36.8; O2SAT 95
[2025-07-21] VITALS (9 sets, daily range): BP systolic 99–123; BP diastolic 51–58; PULSE 84–90; RESP 16–19; TEMP 36.2–37.1; O2SAT 91–94
[2025-07-21 05:44] LABS: Hematocrit 21.8 % (37.0-47.0); Hemoglobin 7.2 g/dl (12.0-16.0); Mean Corpuscular HGB Conc 33.0 g/dl (31.0-35.0); Mean Corpuscular Hemoglobin 31.3 pg (27.0-33.0); Mean Corpuscular Volume 94.8 fL (80.0-98.0); NRBC Abs Auto 0.020 X10*3/uL (0.0-0.012); NRBC Pct Auto 0.2 /100WBC (0.0-0.2); Platelet Count 363 X10*3/uL (160-400); Red Blood Count 2.30 X10*6/uL (4.20-5.50); White Blood Count 11.8 X10*3/uL (4.8-10.8)
[2025-07-21 06:00] LABS: Anion Gap 12 (12-20); Blood Urea Nitrogen 15 mg/dL (9-16); Calcium 7.8 mg/dL (8.4-10.2); Carbon Dioxide 26 mmol/L (22-29); Chloride 105 mmol/L (96-108); Creatinine Clr Calc Pharmacy 63.0; Estimated Glomerular Filt Rate > 60; Potassium 3.9 mmol/L (3.3-5.1); Sodium 139 mmol/L (135-145)
--- NOTE | 2025-07-21 08:39 | HO.PM.IMPN ---
Subjective Subjective Date of Service: 07/21/25 Interval History: F/U Right Hip Fracture c/o Lightheadedness with ambulation Small bowel movement this am HH noted to be lower today Physical Exam Exam: Exam: Appearing in no acute distress Head is normocephalic atraumatic eyes pupils are PERRLA sclera is anicteric mouth throat mucous membranes are intact and moist neck is supple no lymphadenopathy, no JVD noted lung sounds rales heart regular rate rhythm, clear? S1, S2, no edema positive bowel sounds, abdomen is soft, nontender neuro patient is alert, oriented to person place and time, no focal deficits Vital Signs: Vital Signs: Last Vital Signs Temp 97.1 F 07/21/25 07:45 Pulse 88 07/21/25 07:45 Resp 16 07/21/25 07:45 BP 101/56 L 07/21/25 07:45 Pulse Ox 94 07/21/25 07:45 O2 Del Method Room Air 07/21/25 07:45 O2 Flow Rate 2 07/19/25 11:25 BMI result Body Mass Index 24.5 Objective Data Active Medications Acetaminophen (Acetaminophen 325 Mg Tablet) 650 mg PO Q4H PRN PRN Reason: Pain, Mild 1-3,fever,headache Last Admin: 07/20/25 16:59 Dose: 650 mg Documented By: BOLIVAR Calcium Carbonate (Calcium Carbonate 750 Mg Tab.Chew) 750 mg PO Q4H PRN PRN Reason: Heartburn Calcium Carbonate (Calcium Carbonate 750 Mg Tab.Chew) 750 mg PO DAILY [facility] Last Admin: 07/21/25 08:03 Dose: 750 mg Documented By: JUAN C Docusate Sodium (Docusate Sodium 100 Mg Capsule) 200 mg PO DAILY [facility] Last Admin: 07/21/25 08:03 Dose: 200 mg Documented By: JUAN C Enoxaparin Sodium (Enoxaparin Sodium 40 Mg/0.4 Ml Syringe) 40 mg SUBCUT Q24H [facility] On Hold: 07/19/25 11:49 Comment: Order held by Process Transfer Last Admin: 07/19/25 07:23 Dose: Not Given Documented By: AMADO Non-Admin Reason: held for OR Enoxaparin Sodium (Enoxaparin Sodium 40 Mg/0.4 Ml Syringe) 40 mg SUBCUT Q24H [facility] Last Admin: 07/20/25 09:07 Dose: 40 mg Documented By: BOLIVAR Magnesium Hydroxide (Milk Of Magnesia 30 Ml Oral.Susp) 30 ml PO DAILY PRN PRN Reason: Constipation Last Admin: 07/20/25 09:07 Dose: 30 ml Documented By: BOLIVAR Melatonin (Melatonin 3 Mg Tablet) 6 mg PO BEDTIME PRN PRN Reason: Insomnia Morphine Sulfate (Morphine Sulfate 4 Mg/Ml Cartridge) 2 mg IVPUSH Q2H PRN; Protocol PRN Reason: Pain, Severe (Pain Scale 7-10) Last Admin: 07/18/25 23:11 Dose: 2 mg Documented By: IRMA Multivitamins/Vitamin C (Multivitamin Tablet) 1 tab PO DAILY [facility] Last Admin: 07/21/25 08:03 Dose: 1 tab Documented By: JUAN C Ondansetron HCl (Ondansetron Hcl 4 Mg/2 Ml Vial) 4 mg IVPUSH Q8H PRN PRN Reason: Nausea and Vomiting Sodium Chloride (0.9 % Sodium Chloride Flush 3 Ml Syringe) 3 ml IVFLUSH QSHIFT [facility] Last Admin: 07/20/25 21:14 Dose: 3 ml Documented By: BIANCA Vitamin D (Cholecalciferol (Vitamin D3) 25 Mcg Tablet) 25 mcg PO DAILY [facility] Last Admin: 07/21/25 08:03 Dose: 25 mcg Documented By: JUAN C Labs 07/21/25 05:19 07/21/25 05:19 Labs: Laboratory Results - last 24 hr 07/20/25 07/21/25 05:43 05:19 MCV 94.8 MCH 31.3 MCHC 33.0 RDW 14.9 Plt Count 363 MPV 9.2 L Absolute Nucleated RBC 0.020 H Nucleated RBC % (auto) 0.2 Anion Gap 12 Estim Creat Clear Calc 63.0 Estimated GFR > 60 Random Glucose 99 Calcium 7.8 L Iron 14 L TIBC 154 L % Saturation 9 L Unsat Iron Binding 140 Assessment and Plan (1) Weakness: Status: Acute Plan 82 year old women with right hip fracture s/p IMN on 07/19/25 Right hip fracture s/p IMN continue pain management with Morphine and Tylenol oob to chair and ambulation with PT Orthopedic surgery following Acute on chronic iron deficiency anemia significant decreased in HH in one week could be post surgical Iron 14, Will order IV dose once with Po maintenance HH today, 7.2/21.8 will transfuse with 1 u PRBC Lightheadedness with ambulation Will order orthrostatic BP monitoring Constipation reports small BM this morning Bowel regimen osteoporosis Continue vitamin D and calcium Code Status: Full Code DVT Prophylaxis: Lovenox Patient will need hospitalization for at least two midnights for right femur fracture repair Quality Stroke Does the patient have a stroke diagnosis?: No VTE Prior VTE?: No VTE Risk Level:: Medical - moderate - high VTE Device Contraindication: N/A - Device Ordered VTE Drug Contraindication: N/A - Med Ordered
[2025-07-21] MEDS: 0.9 % Sodium Chloride Flush 3 ML SYRINGE IVFLUSH ×3 (08:59→22:00)
--- NOTE | 2025-07-21 10:38 | PM.PNORT ---
Subjective Subjective Date of Service: 07/21/25 Interval history: POD2 s/p rt femoral IM Nail POD 11 Lt femoral IMN Patient is resting in bed comfortably No overnight events Pain is managed No additional complaints Physical Exam Vital Signs: Vital Signs: Last Vital Signs Temp 97.1 F 07/21/25 07:45 Pulse 88 07/21/25 07:45 Resp 16 07/21/25 07:45 BP 101/56 L 07/21/25 07:45 Pulse Ox 94 07/21/25 07:45 O2 Del Method Room Air 07/21/25 07:45 O2 Flow Rate 2 07/19/25 11:25 BMI result Body Mass Index 24.5 Const: General: cooperative, healthy appearing and no acute distress Resp: Effort & Inspection: normal respiratory effort and able to speak in complete sentences Extrem: Other: right lower extremity: dressing is c/d/i. Able to dorsi/plantar flex. Calf is supple and nontender. Sensation intact. Pedal pulse intact. lt femur bandage clean dry and intact. Able to dorsi/plantar flex. Calf is supple and nontender. Sensation intact. Pedal pulse intact. Psych: Appearance: grossly normal Mental Status: mental status grossly normal Attitude: cooperative Procedures Date of Service Date of Service: 07/21/25 Progress Note: A&P Assessment and plan (1) Fracture of right femur: Status: Acute (2) Closed left femoral fracture: Status: Acute Plan s/p Left femoral IM NAil 07/10/[address]: WBAT Acute on chronic DVT LLE Lovenox s/p rt femoral IM Nail 07/19/25 with NE WBAT Lovenox medicine transfusing PRBCs Continue pain mgmnt begin PT/OT for bilateral femoral IM Nails: WBAT bilateral lower extremities Dispo planning-Pending PT/OT eval, pain mgmnt, May rehab to rehab once medically cleared and has worked with physical therapy. Time Spent With Patient Time: Total time managing care of this patient today ____ minutes. Quality Stroke Does the patient have a stroke diagnosis?: No VTE Prior VTE?: No VTE Risk Level:: Medical - moderate - high VTE Device Contraindication: N/A - Device Ordered VTE Drug Contraindication: N/A - Med Ordered
[2025-07-21 15:02] LABS: Hematocrit 24.8 % (37.0-47.0); Hemoglobin 8.3 g/dl (12.0-16.0)
--- NOTE | 2025-07-21 17:22 | PC.NURSE ---
pt sitting in chair Pt rings states I feel wet even with hernandez cath in place . Pt pad was wet with urine , hernandez cath removed , balloon deflated , hernandez removed with no issues . Pt DTV #1 at 0953 , pt ambulated back to bed with walker with minimal assistance
[2025-07-22 04:00] VITALS: BP 132/62; PULSE 89; RESP 16; TEMP 36.1; O2SAT 93
[2025-07-22 06:15] LABS: Hematocrit 26.0 % (37.0-47.0); Hemoglobin 8.4 g/dl (12.0-16.0); Mean Corpuscular HGB Conc 32.3 g/dl (31.0-35.0); Mean Corpuscular Hemoglobin 30.3 pg (27.0-33.0); Mean Corpuscular Volume 93.9 fL (80.0-98.0); NRBC Abs Auto 0.030 X10*3/uL (0.0-0.012); NRBC Pct Auto 0.3 /100WBC (0.0-0.2); Platelet Count 397 X10*3/uL (160-400); Red Blood Count 2.77 X10*6/uL (4.20-5.50); White Blood Count 10.4 X10*3/uL (4.8-10.8)
[2025-07-22 07:45] VITALS: BP 116/60; PULSE 84; RESP 16; TEMP 37.1; O2SAT 92
--- NOTE | 2025-07-22 07:47 | PM.PNORT ---
Subjective Subjective Date of Service: 07/22/25 Interval history: POD2 s/p rt femoral IM Nail NE POD [address] Patient is resting in bed comfortably No overnight events Pain is managed No additional complaints Physical Exam Vital Signs: Vital Signs: Last Vital Signs Temp 98.8 F 07/22/25 07:45 Pulse 84 07/22/25 07:45 Resp 16 07/22/25 07:45 BP 116/60 07/22/25 07:45 Pulse Ox 92 07/22/25 07:45 O2 Del Method Room Air 07/22/25 07:45 O2 Flow Rate 2 07/19/25 11:25 BMI result Body Mass Index 24.5 Const: General: cooperative, healthy appearing and no acute distress Resp: Effort & Inspection: normal respiratory effort and able to speak in complete sentences Extrem: Other: right lower extremity: dressing is c/d/i. Able to dorsi/plantar flex. Calf is supple and nontender. Sensation intact. Pedal pulse intact. lt femur bandage clean dry and intact. Able to dorsi/plantar flex. Calf is supple and nontender. Sensation intact. Pedal pulse intact. Psych: Appearance: grossly normal Mental Status: mental status grossly normal Attitude: cooperative Procedures Date of Service Date of Service: 07/22/25 Progress Note: A&P Assessment and plan (1) Fracture of right femur: Status: Acute (2) Closed left femoral fracture: Status: Acute Plan s/p Left femoral IM NAil 07/10/25 with : WBAT Acute on chronic DVT LLE Lovenox s/p rt femoral IM Nail 07/19/25 with NE WBAT Lovenox Medicine [facility] pRBC's 07/21/25: H&H this morning 8.4/26.0 Continue pain mgmnt begin PT/OT for bilateral femoral IM Nails: WBAT bilateral lower extremities Dispo planning-Pending PT/OT eval, pain mgmnt, May rehab to rehab once medically cleared Time Spent With Patient Time: Total time managing care of this patient today ____ minutes. Quality Stroke Does the patient have a stroke diagnosis?: No VTE Prior VTE?: No VTE Risk Level:: Medical - moderate - high VTE Device Contraindication: N/A - Device Ordered VTE Drug Contraindication: N/A - Med Ordered
[2025-07-22] MEDS: 0.9 % Sodium Chloride Flush 3 ML SYRINGE IVFLUSH ×3 (08:12→19:48)
--- NOTE | 2025-07-22 12:10 | P.PNIM_ITS ---
Subjective Subjective Date of Service: 07/22/25 Interval History: Patient seen examined at bedside this morning, in no acute respiratory distress. Patient states that she has been working with physical therapy, today had small bowel movement. No concerns voiced by the nursing staff. Patient seen by Orthopedic surgery, suggested on continuing PT/OT for bilateral femoral IM nails. Review of Systems Review of Systems: Yes all other systems are reviewed and are negative Physical Exam 2 Exam: Exam: General: AxOx3, No acute distress Head: AT/NC ENT: Moist mucous membranes Neck: supple CVS; RRR, S1 S2 normal Lungs: Clear bilateral breath sounds, no wheezes or crackles Abd: Soft non tender, non distended Ext: No edema and no calf tenderness MSK: moving all 4 limbs Skin: Bilateral surgical sites C/D/I Psych: Cooperative with exam Neurology: no focal deficit Vital Signs: Vital Signs: Last Vital Signs Temp 98.8 F 07/22/25 07:45 Pulse 84 07/22/25 07:45 Resp 16 07/22/25 07:45 BP 116/60 07/22/25 07:45 Pulse Ox 92 07/22/25 07:45 O2 Del Method Room Air 07/22/25 07:45 O2 Flow Rate 2 07/19/25 11:25 BMI result Body Mass Index 24.5 Objective Data Active Medications Acetaminophen (Acetaminophen 325 Mg Tablet) 650 mg PO Q4H PRN PRN Reason: Pain, Mild 1-3,fever,headache Last Admin: 07/22/25 08:16 Dose: 650 mg Documented By: JUAN C Calcium Carbonate (Calcium Carbonate 750 Mg Tab.Chew) 750 mg PO Q4H PRN PRN Reason: Heartburn Calcium Carbonate (Calcium Carbonate 750 Mg Tab.Chew) 750 mg PO DAILY [facility] Last Admin: 07/22/25 08:13 Dose: 750 mg Documented By: JUAN C Docusate Sodium (Docusate Sodium 100 Mg Capsule) 200 mg PO DAILY [facility] Last Admin: 07/22/25 08:13 Dose: 200 mg Documented By: JUAN C Enoxaparin Sodium (Enoxaparin Sodium 40 Mg/0.4 Ml Syringe) 40 mg SUBCUT Q24H [facility] On Hold: 07/19/25 11:49 Comment: Order held by Process Transfer Last Admin: 07/19/25 07:23 Dose: Not Given Documented By: HO.JERUSIA Non-Admin Reason: held for OR Enoxaparin Sodium (Enoxaparin Sodium 40 Mg/0.4 Ml Syringe) 40 mg SUBCUT Q24H [facility] Last Admin: 07/22/25 08:13 Dose: 40 mg Documented By: JUAN C Magnesium Citrate (Magnesium Citrate 300 Ml Solution) 300 ml PO DAILY PRN PRN Reason: CONSTIPATION Magnesium Hydroxide (Milk Of Magnesia 30 Ml Oral.Susp) 30 ml PO DAILY PRN PRN Reason: Constipation Last Admin: 07/20/25 09:07 Dose: 30 ml Documented By: BOLIVAR Melatonin (Melatonin 3 Mg Tablet) 6 mg PO BEDTIME PRN PRN Reason: Insomnia Morphine Sulfate (Morphine Sulfate 4 Mg/Ml Cartridge) 2 mg IVPUSH Q2H PRN; Protocol PRN Reason: Pain, Severe (Pain Scale 7-10) Last Admin: 07/18/25 23:11 Dose: 2 mg Documented By: IRMA Multivitamins/Vitamin C (Multivitamin Tablet) 1 tab PO DAILY [facility] Last Admin: 07/22/25 08:13 Dose: 1 tab Documented By: JUAN C Ondansetron HCl (Ondansetron Hcl 4 Mg/2 Ml Vial) 4 mg IVPUSH Q8H PRN PRN Reason: Nausea and Vomiting Sodium Chloride (0.9 % Sodium Chloride Flush 3 Ml Syringe) 3 ml IVFLUSH QSHIFT [facility] Last Admin: 07/22/25 08:12 Dose: 3 ml Documented By: JUAN C Vitamin D (Cholecalciferol (Vitamin D3) 25 Mcg Tablet) 25 mcg PO DAILY [facility] Last Admin: 07/22/25 08:13 Dose: 25 mcg Documented By: JUAN C Labs 07/22/25 05:15 07/21/25 05:19 Labs: Laboratory Results - last 24 hr 07/21/25 07/22/25 08:27 05:15 MCV 93.9 MCH 30.3 MCHC 32.3 RDW 15.6 Plt Count 397 MPV 9.5 Absolute Nucleated RBC 0.030 H Nucleated RBC % (auto) 0.3 H Crossmatch See Detail Assessment and Plan (1) Fracture of right femur: Status: Acute Plan Assessment: 82 year old women with right hip fracture s/p IMN on 07/19/25 Right hip fracture s/p IMN will continue pain management with Morphine and Tylenol oob to chair and ambulation with PT Orthopedic surgery following Acute on chronic iron deficiency anemia, improved, likely multifactorial in setting of surgery and IVF Hb 8.4 on 07/22 continue to monitor for blood loss, transfuse for Hb less than 7 Constipation reports small BM this morning continue Bowel regimen osteoporosis Continue vitamin D and calcium Code Status: Full Code DVT Prophylaxis: Lovenox Total time managing care of this patient today: 55 minutes. Quality Stroke Does the patient have a stroke diagnosis?: No VTE Prior VTE?: No VTE Risk Level:: Medical - moderate - high VTE Device Contraindication: N/A - Device Ordered VTE Drug Contraindication: N/A - Med Ordered
--- NOTE | 2025-07-22 14:40 | MHC.CM.PN ---
pt is being receonsidered for [facility] they will make a decision in the am [facility] is familys first choice
[2025-07-22 15:12] VITALS: BP 134/64; PULSE 97; RESP 18; TEMP 36.7; O2SAT 96
[2025-07-22 19:05] VITALS: BP 111/53; PULSE 86; RESP 18; TEMP 36.7; O2SAT 96
[2025-07-23 04:00] VITALS: BP 120/58; PULSE 78; RESP 16; TEMP 36.6; O2SAT 94
[2025-07-23 07:09] VITALS: BP 121/59; PULSE 83; RESP 16; TEMP 36.6; O2SAT 94
[2025-07-23] MEDS: 0.9 % Sodium Chloride Flush 3 ML SYRINGE IVFLUSH ×3 (07:39→20:43)
--- NOTE | 2025-07-23 08:00 | PM.PNORT ---
Subjective Subjective Date of Service: 07/23/25 Interval history: POD3 s/p rt femoral IM Nail NE POD [address] Patient is resting in bed comfortably No overnight events Pain is managed No additional complaints Physical Exam Vital Signs: Vital Signs: Last Vital Signs Temp 97.8 F 07/23/25 07:09 Pulse 83 07/23/25 07:09 Resp 16 07/23/25 07:09 BP 121/59 L 07/23/25 07:09 Pulse Ox 94 07/23/25 07:09 O2 Del Method Room Air 07/23/25 07:09 O2 Flow Rate 2 07/19/25 11:25 BMI result Body Mass Index 24.5 Const: General: cooperative, healthy appearing and no acute distress Resp: Effort & Inspection: normal respiratory effort and able to speak in complete sentences Extrem: Other: right lower extremity: Middle dressing has started to roll slightly, but does not appear to have exposed to be incision site to open air. Other dressings c/d/i. Able to dorsi/plantar flex. Calf is supple and nontender. Sensation intact. Pedal pulse intact. lt femur bandage clean dry and intact. Able to dorsi/plantar flex. Calf is supple and nontender. Sensation intact. Pedal pulse intact. Psych: Appearance: grossly normal Mental Status: mental status grossly normal Attitude: cooperative Procedures Date of Service Date of Service: 07/23/25 Progress Note: A&P Assessment and plan (1) Fracture of right femur: Status: Acute (2) Closed left femoral fracture: Status: Acute Plan s/p Left femoral IM NAil 07/10/[address]: WBAT Acute on chronic DVT LLE Lovenox s/p rt femoral IM Nail 07/19/25 with NE WBAT Lovenox Dressing changed today without issue Medicine transufes pRBC's 07/21/25: H&H 07/22/2025 8.4/26.0, H/H 07/23/2025 pending Continue pain mgmnt begin PT/OT for bilateral femoral IM Nails: WBAT bilateral lower extremities Dispo planning-Pending PT/OT eval, pain mgmnt, May return to rehab once medically cleared Time Spent With Patient Time: Total time managing care of this patient today ____ minutes. Quality Stroke Does the patient have a stroke diagnosis?: No VTE Prior VTE?: No VTE Risk Level:: Medical - moderate - high VTE Device Contraindication: N/A - Device Ordered VTE Drug Contraindication: N/A - Med Ordered
[2025-07-23 08:37] LABS: Hematocrit 27.6 % (37.0-47.0); Hemoglobin 8.8 g/dl (12.0-16.0); Mean Corpuscular HGB Conc 31.9 g/dl (31.0-35.0); Mean Corpuscular Hemoglobin 30.1 pg (27.0-33.0); Mean Corpuscular Volume 94.5 fL (80.0-98.0); NRBC Abs Auto 0.020 X10*3/uL (0.0-0.012); NRBC Pct Auto 0.2 /100WBC (0.0-0.2); Platelet Count 470 X10*3/uL (160-400); Red Blood Count 2.92 X10*6/uL (4.20-5.50); White Blood Count 10.1 X10*3/uL (4.8-10.8)
--- NOTE | 2025-07-23 10:36 | P.CDIM_ITS ---
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 Please review below and update the documentation accordingly. Documentation in the record indicates the patient was admitted with a fracture. Clinical Indicators: Patient stumbled but did not fall but felt a pop in her right leg. Significant for Osteopenia on Vitamin D and Calcium. Week prior was admitted for left femur fracture with s/p IMN and severe osteoporosis. X-ray - Severe osteoarthritis of the right hip and right knee. 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 Please use your independent medical judgment in providing your response. THIS QUERY IS PART OF THE PERMANENT MEDICAL RECORD
[2025-07-23 11:40] VITALS: O2SAT 88
--- NOTE | 2025-07-23 14:08 | MHC.CM.PN ---
PER MD ROUNDS, PT IS READY TO DC [facility] IS OFFERING AND HAS SUBMITTED FOR AUTH PT WILL TRANSPORT VIA BLS PENDING AUTH
--- NOTE | 2025-07-23 14:39 | HO.PM.IMPN ---
Subjective Subjective Date of Service: 07/23/25 Interval History: Patient seen and examined at bedside this morning, patient states that she is feeling well, hemoglobin is stable at 8.8, working physical therapy and occupational therapy. No concerns voiced from nursing staff. Review of Systems Review of Systems: Yes all other systems are reviewed and are negative Physical Exam Exam: Exam: General: AxOx3, No acute distress Head: AT/NC ENT: Moist mucous membranes Neck: supple CVS; RRR, S1 S2 normal Lungs: Clear bilateral breath sounds, no wheezes or crackles Abd: Soft non tender, non distended Ext: Bilateral lower extremity surgical site clean dry intact. MSK: moving all 4 limbs Skin: No cyanosis or edema Psych: Cooperative with exam Neurology: no focal deficit Vital Signs: Vital Signs: Last Vital Signs Temp 97.8 F 07/23/25 07:09 Pulse 83 07/23/25 07:09 Resp 16 07/23/25 07:09 BP 121/59 L 07/23/25 07:09 Pulse Ox 88 L 07/23/25 11:40 O2 Del Method Room Air 07/23/25 07:09 O2 Flow Rate 2 07/19/25 11:25 BMI result Body Mass Index 24.5 Objective Data Active Medications Acetaminophen (Acetaminophen 325 Mg Tablet) 650 mg PO Q4H PRN PRN Reason: Pain, Mild 1-3,fever,headache Last Admin: 07/23/25 13:27 Dose: 650 mg Documented By: JUAN C Calcium Carbonate (Calcium Carbonate 750 Mg Tab.Chew) 750 mg PO Q4H PRN PRN Reason: Heartburn Calcium Carbonate (Calcium Carbonate 750 Mg Tab.Chew) 750 mg PO DAILY [facility] Last Admin: 07/23/25 07:39 Dose: 750 mg Documented By: JUAN C Docusate Sodium (Docusate Sodium 100 Mg Capsule) 200 mg PO DAILY [facility] Last Admin: 07/23/25 07:39 Dose: 200 mg Documented By: JUAN C Enoxaparin Sodium (Enoxaparin Sodium 40 Mg/0.4 Ml Syringe) 40 mg SUBCUT Q24H [facility] On Hold: 07/19/25 11:49 Comment: Order held by Process Transfer Last Admin: 07/19/25 07:23 Dose: Not Given Documented By: AMADO Non-Admin Reason: held for OR Enoxaparin Sodium (Enoxaparin Sodium 40 Mg/0.4 Ml Syringe) 40 mg SUBCUT Q24H [facility] Last Admin: 07/23/25 10:17 Dose: 40 mg Documented By: JUAN C Magnesium Citrate (Magnesium Citrate 300 Ml Solution) 300 ml PO DAILY PRN PRN Reason: CONSTIPATION Magnesium Hydroxide (Milk Of Magnesia 30 Ml Oral.Susp) 30 ml PO DAILY PRN PRN Reason: Constipation Last Admin: 07/20/25 09:07 Dose: 30 ml Documented By: BOLIVAR Melatonin (Melatonin 3 Mg Tablet) 6 mg PO BEDTIME PRN PRN Reason: Insomnia Multivitamins/Vitamin C (Multivitamin Tablet) 1 tab PO DAILY [facility] Last Admin: 07/23/25 07:39 Dose: 1 tab Documented By: JUAN C Ondansetron HCl (Ondansetron Hcl 4 Mg/2 Ml Vial) 4 mg IVPUSH Q8H PRN PRN Reason: Nausea and Vomiting Sodium Chloride (0.9 % Sodium Chloride Flush 3 Ml Syringe) 3 ml IVFLUSH QSHIFT [facility] Last Admin: 07/23/25 13:29 Dose: 3 ml Documented By: JUAN C Vitamin D (Cholecalciferol (Vitamin D3) 25 Mcg Tablet) 25 mcg PO DAILY [facility] Last Admin: 07/23/25 07:39 Dose: 25 mcg Documented By: JUAN C Labs 07/23/25 08:14 07/21/25 05:19 Labs: Laboratory Results - last 24 hr 07/23/25 08:14 MCV 94.5 MCH 30.1 MCHC 31.9 RDW 15.4 Plt Count 470 H MPV 9.3 L Absolute Nucleated RBC 0.020 H Nucleated RBC % (auto) 0.2 Assessment and Plan (1) Fracture of right femur: Status: Acute Plan Assessment: 82 year old women with right hip fracture s/p IMN on 07/19/25 Right hip fracture s/p IMN will continue pain management with Morphine and Tylenol oob to chair and ambulation with PT Orthopedic surgery following Acute on chronic iron deficiency anemia, improved, likely multifactorial in setting of surgery and IVF Hb 8.4 on 07/22 -> 8.8 on 07/23 continue to monitor for blood loss, transfuse for Hb less than 7 Constipation continue Bowel regimen osteoporosis Continue vitamin D and calcium Code Status: Full Code DVT Prophylaxis: Lovenox Total time managing care of this patient today: 55 minutes. Quality Stroke Does the patient have a stroke diagnosis?: No VTE Prior VTE?: No VTE Risk Level:: Medical - moderate - high VTE Device Contraindication: N/A - Device Ordered VTE Drug Contraindication: N/A - Med Ordered
[2025-07-23 15:54] VITALS: BP 118/55; PULSE 83; RESP 18; TEMP 36.7; O2SAT 96
[2025-07-23 19:13] VITALS: BP 125/58; PULSE 97; RESP 16; TEMP 36.2; O2SAT 95
[2025-07-24 04:00] VITALS: BP 122/60; PULSE 81; RESP 14; TEMP 36; O2SAT 95
[2025-07-24 07:32] VITALS: BP 128/90; PULSE 104; RESP 16; TEMP 36.1; O2SAT 98
[2025-07-24] MEDS: 0.9 % Sodium Chloride Flush 3 ML SYRINGE IVFLUSH (08:17)
--- NOTE | 2025-07-24 08:51 | PM.PNORT ---
Subjective Subjective Date of Service: 07/24/25 Interval history: POD4 s/p rt femoral IM Nail NE POD 13 Lt femoral IMN Patient is resting in chair comfortably Denies any chest pain, shortness of breath, or other systemic symptoms No overnight events Pain is managed No additional complaints Physical Exam Vital Signs: Vital Signs: Last Vital Signs Temp 97.0 F 07/24/25 07:32 Pulse 104 H 07/24/25 07:32 Resp 16 07/24/25 07:32 BP 128/90 H 07/24/25 07:32 Pulse Ox 98 07/24/25 07:32 O2 Del Method Room Air 07/24/25 07:32 O2 Flow Rate 2 07/19/25 11:25 BMI result Body Mass Index 24.5 Const: General: cooperative, healthy appearing and no acute distress Resp: Effort & Inspection: normal respiratory effort and able to speak in complete sentences Extrem: Other: right lower extremity: All dressings on right lower extremity are clean, dry, intact Able to dorsi/plantar flex. Calf is supple and nontender. Sensation intact. Pedal pulse intact. lt femur bandage clean dry and intact. Able to dorsi/plantar flex. Calf is supple and nontender. Sensation intact. Pedal pulse intact. Psych: Appearance: grossly normal Mental Status: mental status grossly normal Attitude: cooperative Procedures Date of Service Date of Service: 07/24/25 Progress Note: A&P Assessment and plan (1) Fracture of right femur: Status: Acute (2) Closed left femoral fracture: Status: Acute Plan s/p Left femoral IM NAil 07/10/25 with : WBAT Acute on chronic DVT LLE Lovenox s/p rt femoral IM Nail 07/19/25 with NE WBAT Lovenox No further dressing changes indicated Medicine transufes pRBC's 07/21/25: H&H 07/22/2025 8.4/26.0, H/H 07/23/25 8.8/27.6 Continue pain mgmnt Continue PT/OT for bilateral femoral IM Nails: WBAT bilateral lower extremities Dispo planning-Pending PT/OT eval, pain mgmnt, May return to rehab once medically cleared Time Spent With Patient Time: Total time managing care of this patient today ____ minutes. Quality Stroke Does the patient have a stroke diagnosis?: No VTE Prior VTE?: No VTE Risk Level:: Medical - moderate - high VTE Device Contraindication: N/A - Device Ordered VTE Drug Contraindication: N/A - Med Ordered
--- NOTE | 2025-07-24 09:48 | MHC.CM.PN ---
pt being dcd today to [facility] at 2:30 dgter left mesage re same
--- NOTE | 2025-07-24 13:44 | P.DS_ITS ---
DS: Providers Provider Date of Service: 07/24/25 Date of admission: 07/18/25 00:42 Date of discharge: 07/24/25 Primary care physician: Nusrat Alvarenga MD Consults: 07/18/25 01:13 Consult to Orthopedics Routine Consulting Provider: [facility] Reason for consultation: Right femur fracture, closed Has provider been notified: Yes DS: Diagnosis Discharge Diagnosis (1) Fracture of right femur: Status: Acute (2) Closed left femoral fracture: Status: Acute DS: Summary Hospital Course Hospital Course: 84-year-old female with recent fracture on 07/10 requiring left femoral IM and in severe osteoporosis was brought in from rehab on 07/17 after right sided pain we will transferring from wheelchair to bed. Imaging showed acute right femur metadiaphysis fracture and severe osteoarthritis of the right hip , right knee. Patient was assessed by Orthopedic surgery and taken to surgery on 07/19. Patient's hemoglobin on 07/21 7.2, receiving 1 unit of packed red blood cells. On day of discharge, patient ambulating, denies any lightheadedness, dizziness. Mentioned that her pain is under control with Tylenol. Per orthopedic surgery, suggest continuing PT/OT for bilateral femoral IM nailing with weight-bearing as tolerated for bilateral lower extremities. Right hip fracture s/p IMN Continue multimodal pain management Continue with DVT prophylaxis with Lovenox, given patient's anemia oob to chair and ambulation with PT Follow with Orthopedic surgery as outpatient on 07/27/2025 Acute on chronic iron deficiency anemia, improved, likely multifactorial in setting of surgery and IVF, improved Hb 8.4 on 07/22 -> 8.8 on 07/23 continue to monitor for blood loss, transfuse for Hb less than 7 Constipation continue Bowel regimen osteoporosis Continue vitamin D and calcium Ambulatory dysfunction status post bilateral hip fractures Generalized weakness -continue PT/OT Time Attestation Discharge Coordination Time (in mins): 35 minutes Quality: Safe Use of Opioids Does Pt have an Active Cancer Diagnosis on the Problem List?: No Quality: Stroke Does the patient have a stroke diagnosis?: No Physical Exam Exam: Exam: General: AxOx3, No acute distress Head: AT/NC ENT: Moist mucous membranes Neck: supple CVS; RRR, S1 S2 normal Lungs: Clear bilateral breath sounds, no wheezes or crackles Abd: Soft non tender, non distended Ext: Bilateral lower extremity surgical site clean dry intact. MSK: moving all 4 limbs Skin: No cyanosis or edema Psych: Cooperative with exam Neurology: no focal deficit Vital Signs: Vital Signs: Last Vital Signs Temp 97.0 F 07/24/25 07:32 Pulse 104 H 07/24/25 07:32 Resp 16 07/24/25 07:32 BP 128/90 H 07/24/25 07:32 Pulse Ox 98 07/24/25 07:32 O2 Del Method Room Air 07/24/25 07:32 O2 Flow Rate 2 07/19/25 11:25 BMI result Body Mass Index 24.5 Discharge Plan Discharge Anticipated Discharge Date/Time: 07/24/25 14:36 Patient Disposition: Xfer SNF Discharge Diagnosis: Right hip fracture [facility]errals: [facility] [Other] - 1 Week Nusrat Conklin MD [Primary Care Provider, Internal Medicine] - 1 Week Beatriz De La Rosa PA-C [Physician Chartered Accountant, Orthopedics] - 07/27/25 1:00 pm Referral Note: Discharge Medications: New enoxaparin 40 mg/0.4 mL Syringe 40 mg subcut Q24H Qty: 4 0RF Continued acetaminophen [Tylenol Extra Strength] 500 mg tablet 500 mg PO Q6H PRN (Reason: fever) Qty: 30 3RF docusate sodium 100 mg Capsule 200 mg PO DAILY calcium carbonate [Calcium 600] 600 mg calcium (1,500 mg) Tablet 600 mg PO DAILY naproxen sodium 220 mg Tablet 220 mg PO BID estradiol [Estrace] 0.01 % (0.1 mg/gram) cream 1 g vaginal 2XW multivitamin [Multiple Vitamins] Tablet 1 tab PO DAILY flaxseed oil 1,000 mg capsule 1,000 mg PO DAILY Rx Instructions: administer with a meal cholecalciferol (vitamin D3) 25 mcg (1,000 unit) capsule 25 mcg PO DAILY Discontinued aspirin 325 mg Tablet 325 mg PO BID 28 Days Qty: 56 0RF Discharge Orders: Discharge Order (Routine); Ordered 07/24/25 Ordered By: Reggie Jackson Activity on Discharge: Use cane or walker Stand Alone Forms: Patient Portal Discharge page Print Language: Dominican Activity Restrictions/Additional Instructions: s/p left femoral IM Nail 07/10/25 - WBAT s/p right femoral IM Nail 07/19/25 - WBAT -Bandage/Incision Site Care: -Ice 20mins at a time -Make sure you use a towel or cloth on your skin as a barrier -Keep Bandages clean, dry and intact -Do not get the bandage wet: -No tub bath, pools or hot tubs -Physical Therapy: -Patient is WBAT with the use of a walker -Gait training -Limit stair climbing -Hip range of motion -Strengthening: Quadriceps and hip muscles -Walking: Gait training and gradually increasing distance with walker -Ankle pumps and incentive spirometry to limit the risk of blood clot -Diet: -Resume regular diet as tolerated. -Drink plenty of fluids and eat a high-fiber foods to avoid constipation -This is a common side effect of pain medication) -Take stool softeners as prescribed -Blood Clot Treatment: -Take the prescribed blood thinner as directed -Perform ankle pumps and walk frequently with a walker + assistance if needed -Report calf pain, swelling, or shortness of breath immediately Care Plan Goals: continue with PT/OT follow up with orthopedic surgery and PCP as outpatient Health Concerns: right hip fracture status post surgery Plan of Treatment: continue with PT/OT at rehab facility continue with anticoagulation Follow up with orthopedic surgery on 07/27 and PCP as outpatient Assessment: 84-year-old female with recent fracture on 07/10 requiring left femoral IM and in severe osteoporosis was brought in from rehab on 07/17 after right sided pain we will transferring from wheelchair to bed. Imaging showed acute right femur metadiaphysis fracture and severe osteoarthritis of the right hip , right knee. Patient was assessed by Orthopedic surgery and taken to surgery on 07/19. Patient's hemoglobin on 07/21 7.2, receiving 1 unit of packed red blood cells. O n day of discharge, patient ambulating, denies any lightheadedness, dizziness.
[2025-07-24 14:33] VITALS: BP 126/60; PULSE 60; RESP 16; TEMP 36.5; O2SAT 94
== END 2025-07-24 14:45 | disposition skilled nursing facility (03) | DRG 482 ==
LOC: HO.ED 07-18 00:52 → HO.EDOVER 07-18 00:57 → HO.S3 07-18 07:39
PROVIDERS: Internal Medicine; Nurse Practitioner Acute Care; Orthopaedic Surgery; Physician Assistant; Admitting Provider Internal Medicine; Emergency Provider Student in an Organized Health Care Education/Training Program; PCP Internal Medicine; Visit Provider Student in an Organized Health Care Education/Training Program
PROC: 0QS636Z Reposition Right Upper Femur with Intramedullary Internal Fixation Device, Percutaneous Approach (ICD-10-PCS; principal; 2025-07-19 09:00)
DX: M80.851A Other osteoporosis with current pathological fracture, right femur, initial encounter for fracture (principal); D50.9 Iron deficiency anemia, unspecified; K59.00 Constipation, unspecified; Z20.822 Contact with and (suspected) exposure to COVID-19; Z87.891 Personal history of nicotine dependence; Z79.899 Other long term (current) drug therapy
CPT/HCPCS: 36415; 71045; 73552; 80048; 80053; 83540; 83735; 85014; 85018; 85025; 85027; 85049; 85610; 86850; 86900; 86901; 86923; 87637; 93005; 93971; 97110; 97116; 97162; 97166; 97530; 97535; 99285; C1713; J0131; J0690; J1650; J1756; J2003; J2270; J2405; J2704; J2795; J3010; J7120; P9016

== ENCOUNTER → 2025-07-17 23:40 | Outpatient (BNV) | payer MEDICARE, SELFPAY | PROVIDERS: Admitting Provider Internal Medicine; Emergency Provider Student in an Organized Health Care Education/Training Program; Visit Provider Radiology Neuroradiology | DX: S72.91XA Unspecified fracture of right femur, initial encounter for closed fracture (principal); M17.11 Unilateral primary osteoarthritis, right knee; M16.11 Unilateral primary osteoarthritis, right hip | CPT/HCPCS: 73552 ==

== ENCOUNTER → 2025-07-18 00:06 | Outpatient (BNV) | payer MEDICARE, SELFPAY | PROVIDERS: Admitting Provider Internal Medicine; Emergency Provider Student in an Organized Health Care Education/Training Program; Visit Provider Internal Medicine | DX: I49.1 Atrial premature depolarization (principal) | CPT/HCPCS: 93010 ==

== ENCOUNTER → 2025-07-18 00:42 | Outpatient (BNV) | payer MEDICARE, SELFPAY | PROVIDERS: Admitting Provider Internal Medicine; Emergency Provider Student in an Organized Health Care Education/Training Program; Visit Provider Internal Medicine | DX: S72.91XA Unspecified fracture of right femur, initial encounter for closed fracture (principal) | CPT/HCPCS: 99223; 99499 ==

== ENCOUNTER → 2025-07-18 00:42 | Outpatient (BNV) | payer MEDICARE, SELFPAY | PROVIDERS: Admitting Provider Internal Medicine; Emergency Provider Student in an Organized Health Care Education/Training Program; Visit Provider Physician Assistant | DX: S72.91XA Unspecified fracture of right femur, initial encounter for closed fracture (principal); S72.92XA Unspecified fracture of left femur, initial encounter for closed fracture | CPT/HCPCS: 99024; 99223 ==

== ENCOUNTER → 2025-07-18 | Outpatient (BNV) | payer MEDICARE, SELFPAY | PROVIDERS: Admitting Provider Internal Medicine; Emergency Provider Student in an Organized Health Care Education/Training Program; Visit Provider Radiology Neuroradiology | DX: R22.42 Localized swelling, mass and lump, left lower limb (principal); Z04.3 Encounter for examination and observation following other accident; J98.11 Atelectasis | CPT/HCPCS: 71045; 93971 ==

== ENCOUNTER 2025-07-27 07:18 | Outpatient (REF) | payer MEDICARE, SELFPAY ==
--- NOTE | ~2025-07-27 | XR_ITS ---
EXAMINATION: X-ray right femur X-ray left femur CLINICAL INFORMATION: Unspecified femoral fracture COMPARISON: X-ray 07/17/2025 TECHNIQUE: Right femur 4 views. Left femur 4 views. FINDINGS: Right femur: Status post internal fixation of a right femoral shaft fracture, with intramedullary tejas, 2 proximal screws and 2 distal locking screws. No findings suggest hardware complications. Alignment is near-anatomic. No significant callus/new bone formation. No new acute fractures. Mild hip arthritis. Knee joint articulation is maintained. Skin acacia. Mild soft tissue prominence in the lateral pelvic soft tissues.. Left femur: Status post internal fixation of a left femoral shaft fracture with intramedullary tejas and compression screw. No findings to suggest hardware complications. Near-anatomic alignment. Mild callus formation.. No new acute fractures. Left hip joint space is maintained. Knee joint articulation is maintained. Skin acacia.. XR/XR femur LT 2V IMPRESSION: Right femur: Status post internal fixation of right femoral fracture. No significant callus/new bone formation seen. Left femur: Status post internal fixation of a femoral fracture. Mild callus formation. Electronically signed by: Domingo Roach MD 07/28/2025 07:45 AM KEV
--- NOTE | ~2025-07-27 | XR_ITS ---
EXAMINATION: X-ray right femur X-ray left femur CLINICAL INFORMATION: Unspecified femoral fracture COMPARISON: X-ray 07/17/2025 TECHNIQUE: Right femur 4 views. Left femur 4 views. FINDINGS: Right femur: Status post internal fixation of a right femoral shaft fracture, with intramedullary tejas, 2 proximal screws and 2 distal locking screws. No findings suggest hardware complications. Alignment is near-anatomic. No significant callus/new bone formation. No new acute fractures. Mild hip arthritis. Knee joint articulation is maintained. Skin acacia. Mild soft tissue prominence in the lateral pelvic soft tissues.. Left femur: Status post internal fixation of a left femoral shaft fracture with intramedullary tejas and compression screw. No findings to suggest hardware complications. Near-anatomic alignment. Mild callus formation.. No new acute fractures. Left hip joint space is maintained. Knee joint articulation is maintained. Skin acacia.. XR/XR femur RT 2V IMPRESSION: Right femur: Status post internal fixation of right femoral fracture. No significant callus/new bone formation seen. Left femur: Status post internal fixation of a femoral fracture. Mild callus formation. Electronically signed by: Domingo Roach MD 07/28/2025 07:45 AM EST
--- OUTSIDE RECORDS SUMMARY | 2025-07-27 07:22 | XMS_ITS | Patient Health Record ---
Author Organization [facility] Address [address] [place] [address] Care Team Providers Care [place] Name Role Phone Darrell Mcclain MD Primary [...] Insured Coverage Start Date Coverage End Date [facility] CLAIM[facility] [address] [place] [address] [id number] ANDRE FOSS Self - patient is the insured [facility] [address] [facility] [place] [address] [id number] ANDRE FOSS Self - patient is the insured Medical (General) History Medical History History ICD Code Allergic rhinitis Osteoporosis Uterine prolapse Surgical History Surgery Date(Month/Year) D&C
--- OUTSIDE RECORDS SUMMARY | 2025-07-27 07:22 | XMS_ITS | Clinical Summary ---
Author Organization [facility] Address [address] [place] [address] Care Team Providers Care Certified Medical Transcriptionist Name Role Phone Unavailable Primary Care Provider [...] patient's age to complete this topic Insurance [facility] [employer] OPTIONS (HMO D-SNP)
== END 2025-07-27 07:19 | disposition home or self-care (01) ==
LOC: HO.HOSX 07:18
PROVIDERS: Visit Provider Physician Assistant
DX: S72.302D Unspecified fracture of shaft of left femur, subsequent encounter for closed fracture with routine healing (principal); S72.91XD Unspecified fracture of right femur, subsequent encounter for closed fracture with routine healing; X58.XXXD Exposure to other specified factors, subsequent encounter; Z98.890 Other specified postprocedural states
CPT/HCPCS: 73552; 99212

== ENCOUNTER 2025-07-27 12:46 | Outpatient (AMB) | payer MEDICARE, SELFPAY ==
--- NOTE | 2025-07-27 12:58 | MHC.OFFVIS ---
Vital Signs 07/27/25 13:08 Height 4 ft 10 in Weight 138 lb BMI 28.8 Intake Visit Reasons: s/p LT and RT IM nail Intake Note: Karuna is a 84 year old female who presents today for a post operative visit s/p left femoral IMN 07/10/[address] & s/p right femoral IMN 07/19/25 with NAIN. Patient reports she feels pretty good. Denies any pain, some discomfort in her B/L knees she says but not her hips. She says she took acetaminophen for pain and found relief. Allergies meperidine (Demerol) Allergy (Unknown, Verified 07/27/25 13:08) hives From DEMEROL Allergy (Severe, Uncoded 07/27/25 13:08) SKIN FEELS LIKE SOMETHING CRAWLING ALL OVER HPI HPI s/p LT and RT IM nail: Details: Ms. Martel is an 84-year-old female who presents to the office today status post right femoral IM nail performed on 07/19/[address] Willard as well as a left femoral IM nail performed by Dr. Mcginnis on 07/10/2025. Patient has been at [facility] rehab recovering well. She has been working with physical therapy. She is ambulating with the use of a walker. Pain is well managed. No additional complaints [facility] Medical History Lyme disease Muscle weakness Osteoporosis Surgical History History of cataract surgery Social History Household Members: None Housing: Apartment Housing Other:: duplex Do you presently have visiting nurse or other home services: Yes (Currently at [facility], [facility] Alcohol intake: never Patient Tobacco Use Status: Former Tobacco user Tobacco use type: Cigarette e-Cigarette/Vaping Use: Never Used Second Hand Smoke Exposure: Yes service: No Current occupational status: retired 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 No surrounding erythema or drainage. No signs of infection. Asmita intact. Able to dorsiflex and plantar flex. Able to perform a straight leg raise. NVI. Psych Appearance: grossly normal Mental Status: mental status grossly normal Attitude: cooperative Assessment & Plan Assessment & Plan (1) Fracture of femoral shaft, left, closed: Code(s): S72.302A - Unspecified fracture of shaft of left femur, initial encounter for closed fracture Category: Medical (2) Fracture of right femur: Code(s): S72.91XA - Unspecified fracture of right femur, initial encounter for closed fracture Category: Medical Plan Ms. Martel is an 84-year-old female who presents to the office today status post right femoral IM nail performed on 07/19/[address] Willard as well as a left femoral IM nail performed by Dr. Mcginnis on 07/10/2025. Patient has been at [facility] rehab recovering well. She has been working with physical therapy. She is ambulating with the use of a walker. Pain is well managed. No additional complaints While in the office today, asmita were removed and Steri-Strips were applied. Patient will continue weight-bearing as tolerated on bilateral lower extremities with the use of a walker. Recommended physical therapy to continue working on glute core quad strengthening as well as gait training with the use of a walker. Continue anticoagulation for a total of 6 weeks status post most recent surgery on 07/19/2025. She will follow up in 4 weeks with repeat x-rays, sooner if needed. X-rays of bilateral femurs which were obtained while in the office today and were reviewed by me, Beatriz De La Rosa PA-C, revealed intact orthopedic hardware with routine healing. Orders: Orders XR femur LT 2V 07/27/25 S72.302A - Unspecified fracture of shaft of left femur, initial encounter for closed fracture, S72.91XA - Unspecified fracture of right femur, initial encounter for closed fracture XR femur RT 2V 07/27/25 S72.302A - Unspecified fracture of shaft of left femur, initial encounter for closed fracture, S72.91XA - Unspecified fracture of right femur, initial encounter for closed fracture Coding Level of Care Code Global (56896) Diagnoses Fracture of femoral shaft, left, closed S72.302A Fracture of right femur S72.91XA
[2025-07-27 13:08] VITALS: BMI 28.8
--- OUTSIDE RECORDS SUMMARY | 2025-07-27 21:32 | XMS_ITS | Clinical Summary ---
Author Organization [facility] Address [address] [place] [address] Care Team Providers Care Weight Shifter Name Role Phone Unavailable Primary Care Provider [...] to complete this topic Insurance [facility] [employer] OPTIONS (HMO D-SNP)
== END 2025-07-27 14:46 | disposition home or self-care (01) ==
PROVIDERS: PCP Internal Medicine; Visit Provider Physician Assistant
DX: S72.302A Unspecified fracture of shaft of left femur, initial encounter for closed fracture (principal); S72.91XA Unspecified fracture of right femur, initial encounter for closed fracture
CPT/HCPCS: 99024

== ENCOUNTER → 2025-07-27 12:47 | Outpatient (BNV) | payer MEDICARE, SELFPAY | PROVIDERS: Visit Provider Radiology Diagnostic Ultrasound | DX: S72.302A Unspecified fracture of shaft of left femur, initial encounter for closed fracture (principal) | CPT/HCPCS: 73552 ==

== ENCOUNTER 2025-08-17 11:12 | Outpatient (AMB) | payer MEDICARE, SELFPAY ==
--- NOTE | 2025-08-17 11:16 | A.OFFPC_ITS ---
Vital Signs 08/17/25 11:18 Height 4 ft 10 in Weight 138 lb 10.732 oz BMI 29.0 BP 130/78 Blood Pressure Location Lt brachial Position Sitting Pulse 71 Pulse Source Pulse Oximeter Temp 97.3 F Temp Source Temporal Artery Scan Pulse Oximetry (%) 98 Oxygen Delivery Method Room Air Intake Visit Reasons: [facility] 07/30 Intake Note: Patient is here for hospital discharge follow up. Patient was discharged from [facility] on 08/01/25. 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 Accompanied by: Daughter Allergies meperidine (Demerol) Allergy (Unknown, Verified 08/17/25 11:17) hives From DEMEROL Allergy (Severe, Uncoded 08/17/25 11:17) SKIN FEELS LIKE SOMETHING CRAWLING ALL OVER Medication List - Last Reconciled 08/17/25 by Nusrat Alvarenga MD acetaminophen (Tylenol Extra Strength) 500 mg PO Q6H PRN calcium carbonate (Calcium 600) 600 mg PO DAILY cholecalciferol (vitamin D3) 25 mcg PO DAILY docusate sodium 200 mg PO DAILY enoxaparin 40 mg (0.4 mL) subcut Q24H estradiol 0.01%(0.1mg/gram) (Estrace) 1 g vaginal 2XW flaxseed oil 1,000 mg PO DAILY multivitamin (Multiple Vitamins tablet) 1 tab PO DAILY naproxen sodium 220 mg PO BID Tobacco use date assessed: 08/17/25 Fall risk assessment: No Falls in past year Last assessed Fall Risk: 08/17/25 Dental Screening Dental Screen Date: 05/05/25 HPI HPI Comments History of Present Illness Details The patient is an 85 year old female with PMH of osteoporosis, Herpes zoster, ostheoarthritis, presenting for follow-up after recent bilateral femur fractures and for evaluation of acute upper respiratory symptoms. She sustained a left-sided fracture on 07/10 when she sat on the toilet and felt her leg pop. Approximately one week later, on 07/18, while at a rehabilitation facility, she lost her balance while getting into bed and sustained a fracture in the other leg. She underwent surgical repair for both fractures, receiving two intramedullary rods, and required a one-unit blood transfusion during her hospitalization. The patient has a history of osteoporosis and was previously treated with weekly Fosamax 70 mg. She self stopped taking Fosamax a couple of months before the fractures due to experiencing pain in her legs and thighs. The patient was referred for repeat bone density test but it was postponed due to the acute fractures. The patient is reluctant of taking any medication for osteoporosis. The patient has been having worsening balance issues and weakness in bilateral t highs for which she was seen by neurology who recommended a lumbar spine MRI for suspected lumbar stenosis leading to neurological claudication, but it was postponed due to the fractures. Her prior W-U included negative myosistis panel, negative ESR, mildly elevated CRP, negative KALPESH, and RF. For the past few days, since , she has had symptoms of a cold, including a low-grade fever and a cough. The cough worsened the previous night, requiring her to sleep sitting up, and she reports it is phlegmy when she lies down. She denies any sore throat. [facility] Medical History (Updated 08/17/25 @ 12:11 by Nusrat Alvarenga MD) Lyme disease Muscle weakness Osteoporosis Surgical History (Updated 08/17/25 @ 11:28 by SAMIA Devries) History of open reduction and internal fixation (ORIF) procedure History of cataract surgery Social History Household Members: None Housing: Apartment Housing Other:: duplex Do you presently have visiting nurse or other home services: Yes (Currently at [facility], normally live at [facility]) Alcohol intake: never Patient Tobacco Use Status: Former Tobacco user Tobacco use type: Cigarette e-Cigarette/Vaping Use: Never Used Second Hand Smoke Exposure: Yes service: No Current occupational status: retired 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 Cognitive needs: Yes (cane, walker) Hearing needs: No Vision needs: Yes (Reading glasses) Questionnaire Thrive Questionnaire Date Thrive assessed: 07/18/25 I am a: Patient What is your living situation today?: I have a steady place to live Within the past 12 months, did the food you bought not last and you didn't have the money to get more?: Never true Within the past 12 months, did you worry whether your food would run out before you got money to buy more?: Never true Do you have trouble paying for medicines?: No Do you have trouble getting transportation to medical appointments?: No Do you have trouble paying your heating and electricity bill?: No Do you have trouble taking care of your child, family member or friend?: No Do you have trouble with day-to-day activities such as bathing, preparing meals, shopping, managing finances, etc.?: No Are you currently unemployed and looking for a job?: No Are you interested in more education?: No Currently or been in a relationship where the following occur: No concerns reported THRIVE Score: 0 SOHAN-7 AMB Questionnaire SOHAN-7 Date SOHAN - 7 assessed: 05/05/25 Source: Developed by Drs. Alfredo Antunez, Barbara Tomas, Be Mccord and colleagues, with an educational sarath from [employer]. Review of Systems Const Details: As per HPI. Physical exam (Primary Care) Vital Signs: Last Vital Signs Temp 97.3 F 08/17/25 11:18 Pulse 71 08/17/25 11:18 BP 130/78 08/17/25 11:18 Pulse Ox 98 08/17/25 11:18 Oxygen Delivery Method Room Air 08/17/25 11:18 BMI result Body Mass Index 29.0 Tobacco/Smoking Status: Tobacco use Status Tobacco use date assessed 08/17/25 08/17/25 11:28 Patient Tobacco Use Status Former Tobacco user 08/17/25 11:16 Tobacco use type Cigarette 08/17/25 11:16 e-Cigarette/Vaping Use Never Used 08/17/25 11:16 Thrive Assessment: Date of Thrive Assessment Date Thrive assessed 07/18/25 08/17/25 11:16 Currently or been in a relationship where the following occur: No concerns reported Const Other: Pertinent findings are in BOLD GENERAL APPEARANCE NAD, activity normal for age, well developed/ well nourished, no cyanosis, pallor, or diaphoresis. EYES lids/conjunctiva normal. EARS/NOSE/THROAT Mucous membranes moist, nares normal, lips/teeth normal uvula midline without oral pharyngeal erythema, exudate or swelling TMs normal bilaterally. No lymphangitis/lymphedema. HEAD/NECK normocephalic atraumatic, no facial trauma, neck is supple. RESPIRATORY respiratory effort normal, speaks in full sentences, no tripod position, no accessory muscle use. Lungs clear to auscultation without rhonchi, wheezes, rales CARDIAC Regular rate and rhythm, no edema. ABDOMINAL Soft, ND/NT. No evidence of fluid wave. No pulsatile masses on exam, rebound tenderness, Johnson sign or pain over Mcburney's point. MUSCLES/EXTREMITIES No abnormal range of motion, no swelling. Dupuytren contracture in both hands. Uses a walker to ambulate. SKIN Warm, pink and dry. No rashes, dermatoses, petechiae or lesions. NEUROLOGICAL Speech is clear and appropriate. Normal level of consciousness. Gait and coordination are normal. 5/5 strength in all extremities. PSYCH Normal mood and affect. Judgement/competence is appropriate Coding Level of Care Code Est Pt Level 5 (31068) Diagnoses Age-related osteoporosis with current pathological fracture, initial encounter M80.00XA Osteoporosis type: age-related Presence of current pathological fracture: with current pathological fracture Encounter type: initial encounter Fracture of right femur S72.91XA Closed left femoral fracture S72.92XA Cough R05.9 Lower extremity weakness R29.898 Time Spent (min) 40 Assessment & Plan Assessment & Plan (1) Osteoporosis: Comment: Bilateral femur fractures. Code(s): M81.0 - Age-related osteoporosis without current pathological fracture Category: Medical Qualifiers: Osteoporosis type: age-related Presence of current pathological fracture: with current pathological fracture Encounter type: initial encounter Qualified Code(s): M80.00XA - Age-related osteoporosis with current pathological fracture, unspecified site, initial encounter for fracture Plan: - The patient's recent bilateral non-traumatic femur fractures are highly suspicious for severe osteoporosis, potentially related to her prior use of Fosamax. - A referral will be placed to Endocrinology for expert evaluation and management of her osteoporosis. - The patient expressed reluctance to use injectable therapies for osteoporosis. - She was advised to continue her current vitamin D and calcium supplements and to discuss all treatment options, including risks and benefits, with the engineering and development director. - The importance of a diet rich in calcium, vitamin D, and protein was discussed. - She will continue with home physical therapy and begin outpatient PT on August 28. - She has an upcoming follow-up with Orthopedics on August 27. (2) Fracture of right femur: Comment: s/p IM nail 06/2025 Code(s): S72.91XA - Unspecified fracture of right femur, initial encounter for closed fracture Category: Medical Plan: Continue PT. Follow up with ortho scheduled. (3) Closed left femoral fracture: Comment: s/p IM nail 06/2025 Code(s): S72.92XA - Unspecified fracture of left femur, initial encounter for closed fracture Category: Medical Plan: Continue PT. Follow up with ortho scheduled. (4) Cough: Code(s): R05.9 - Cough, unspecified Category: Medical Plan: - The patient presents with low-grade fever and cough, suspicious for a viral or bacterial respiratory infection. - Nasal swabs for influenza, RSV, and COVID-19, as well as a throat swab for strep, will be performed. - If the tests are negative, a prescription for azithromycin 500 mg daily for three days will be sent. - If tests are positive for a virus, treatment will be supportive care, including Tylenol and hydration. - If the strep test is positive, the antibiotic will be changed to Augmentin. (5) Lower extremity weakness: Code(s): R29.898 - Other symptoms and signs involving the musculoskeletal system Category: Medical Plan: - The patient had a pre-fracture history of progressive gait disturbance, which is being evaluated by neurology. - An MRI of the lumbar spine is scheduled for September 26 for suspected lumbar stenosis causing nerve claudication. - The patient was advised to confirm with the imaging center that an MRI is safe with her surgical hardware. - She has a follow-up appointment with neurology on September 30, where an EMG may be considered if her MRI is normal. Plan I had a detailed discussion with the patient and her daughter regarding her recent bilateral femur fractures. I explained that these were likely pathological fractures due to severe osteoporosis. Given the complexity, I informed her that I would refer her to an engineering and development director for specialized management. We reviewed her upcoming appointments with orthopedics, neurology, and for her MRI, and I advised her to continue with physical therapy. Regarding her current cold symptoms, I explained the plan to test for influenza, COVID-19, RSV, and strep throat. I outlined the treatment plan, which is contingent on the results: supportive care for viral infections or a course of azithromycin if a bacterial cause is suspected and tests are negative. We discussed that her next follow-up appointment here will remain in October unless other needs arise. I also addressed her daughter's questions regarding [facility] paperwork for caregiving responsibilities. Orders: Orders AMB Rapid Strep Screen Today Z13.9 - Encounter for screening, unspecified SARS-CoV2/FLU/RSV Today R05.9 - Cough, unspecified Referrals Endocrinology Referral M81.0 - Age-related osteoporosis without current pathological fracture, S72.91XA - Unspecified fracture of right femur, initial encounter for closed fracture, S72.92XA - Unspecified fracture of left femur, initial encounter for closed fracture
[2025-08-17 11:18] VITALS: BP 130/78; PULSE 71; TEMP 36.3; O2SAT 98; BMI 29.0
--- OUTSIDE RECORDS SUMMARY | 2025-08-17 13:10 | XMS_ITS | Patient Health Record ---
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 Name Role Phone Darrell Mcclain MD Primary Care Provider Lisa Obando Jr Sukhjinder Unavailable [phone] Allergies Allergen (clinical drug ingredient) Drug/Non Drug [...] Insured Coverage Start Date Coverage End Date [facility] CLAIMS [address] [place] [id number] ANDRE FOSS Self - patient is the insured [facility] [address] [place] [address] [id number] ANDRE FOSS Self - patient is the insured Medical (General) History Medical History History ICD Code Allergic rhinitis Osteoporosis Uterine prolapse Surgical History Surgery Date(Month/Year) D&C
--- OUTSIDE RECORDS SUMMARY | 2025-08-17 13:10 | XMS_ITS | Clinical Summary ---
Author Organization [employer] Address [address] [place] [address] Care Team Providers Care Cardiac Technician Name Role Phone Unavailable Primary Care Provider [...] topic Insurance [facility] C[facility] HOME OPTIONS (HMO D-SNP)
== END 2025-08-17 12:46 | disposition home or self-care (01) ==
LOC: HO.HMCH 11:13
PROVIDERS: Visit Provider Internal Medicine
DX: M80.00XA Age-related osteoporosis with current pathological fracture, unspecified site, initial encounter for fracture (principal); S72.91XA Unspecified fracture of right femur, initial encounter for closed fracture; S72.92XA Unspecified fracture of left femur, initial encounter for closed fracture; R05.9 Cough, unspecified; R29.898 Other symptoms and signs involving the musculoskeletal system; Z13.9 Encounter for screening, unspecified